=== PATIENT | male | born 1945 | race Caucasian/White ===

== ENCOUNTER → 2016-04-29 | Outpatient (CLI) | payer MEDICARE ==
[~2016-04-29] MED LIST: /FENT50PA TD; /PANT40TA OR; /WARF25TA OR; /WARF25TA PO; /WARF5TA OR; ASPI81TA83 OR; BIMATOPROST OU; COLA100C2 OR; CoQ-10 PO; EFFE150C OR; FISH1000 OR; GABA600T3 OR; GLUC1000 OR; LISI40TA OR; MAGNESIUM OXIDE PO; MULTIVIT OR; NEUR400C PO; NIAS10003 PO; NORV5TAB OR; OMEGA 3 PO; SIMV20TA2 OR; TOPR50TA OR; TRIC145T19 OR; VICO5TAB OR; VIT D 2000 PO
[2016-04-29 12:47] LABS: INR 3.69
== END ==
LOC: M LAB 11:36
PROVIDERS: ATTEND Internal Medicine
DX: Z79.01 Long term (current) use of anticoagulants (principal)

== ENCOUNTER 2016-11-19 18:05 | Inpatient (IN) | payer OTHER, MEDICARE ==
[~2016-11-19] VITALS: Ht 182.9 cm; Wt 118.2 kg
[2016-11-19] MEDS ORDERED: PLAV1TAB2 PO (18:25)
[2016-11-19] MEDS ORDERED: COUM1TAB17 PO (18:25)
[2016-11-19] MEDS ORDERED: COUM2.5T17 PO (18:25)
[2016-11-19] MEDS ORDERED: NIAC1TAB5 PO (19:00)
[2016-11-19] MEDS ORDERED: ATOR1TAB21 PO (19:00)
[2016-11-19] MEDS ORDERED: GABA-282 PO (19:00)
[2016-11-19] MEDS ORDERED: GABA600T PO (19:00)
[2016-11-19] MEDS ORDERED: FENT50PA TD (19:00)
[2016-11-19 19:14] LABS: BASO % 0.2 % (0.0-1.0); EOS % 0.2 % (0.0-3.0); LARGE UNSTAINED CELL # 0.1 K/mm3 (0.0-0.4); LARGE UNSTAINED CELL % 0.5 % (0.0-4.0); LYMPH # 1.1 K/mm3 (1.5-4.5); MEAN CORPUSCULAR HEMOGLOBIN 31.6 pg (27.0-33.0); MEAN CORPUSCULAR VOLUME 95.9 fl (80.0-96.0); MONO # 0.5 K/mm3 (0.0-0.8); NEUTROPHILS # 8.7 K/mm3 (1.8-7.7); NEUTROPHILS % 84.1 % (36.0-66.0); PLATELET COUNT, AUTOMATED 395 k/mm3 (150-450); RED CELL DISTRIBUTION WIDTH 14.3 % (11.5-14.5); WHITE BLOOD COUNT 10.4 K/mm3 (4.0-10.0)
[2016-11-19] MEDS ORDERED: SODIUM CHLORIDE 0.9% 1000 ML IV ONE (19:15)
[2016-11-19 19:23] LABS: INR 4.99
[2016-11-19 19:39] LABS: ALBUMIN 3.6 GM/DL (3.2-5.2); ALBUMIN/GLOBULIN RATIO 1.03 (1.00-1.93); ALKALINE PHOSPHATASE 57 U/L (45-117); ALT/SGPT 31 U/L (12-78); ANION GAP 13 MEQ/L (8-16); AST/SGOT 21 U/L (15-37); BILIRUBIN,DIRECT 0.1 MG/DL (0.0-0.2); BILIRUBIN,TOTAL 0.4 MG/DL (0.2-1.0); BLOOD UREA NITROGEN 64 MG/DL (7-18); CARBON DIOXIDE LEVEL 21 MEQ/L (21-32); CHLORIDE LEVEL 100 MEQ/L (98-107); CREATININE FOR GFR 3.24 MG/DL (0.70-1.30); GLOMERULAR FILTRATION RATE 20.3 (>49); GLUCOSE, FASTING 161 MG/DL (80-110); MAGNESIUM LEVEL 2.4 MG/DL (1.8-2.4); SODIUM LEVEL 134 MEQ/L (136-145); T UPTAKE 41 % (33-40); TOTAL PROTEIN 7.1 GM/DL (6.4-8.2)
--- NOTE | 2016-11-19 19:40 | REPUSA ---
CLINICAL HISTORY: Syncope TECHNIQUE: Multiple axial CT images were obtained through the brain without IV contrast material. COMMENTS: There is normal configuration of sella turcica. There are no intra or extra-axial collections. There is no mass effect or midline shift. There is no evidence of hematoma formation. No hydrocephalus is p resent. The ventricles are symmetrical. No abnormal calcifications are present. There is diffuse age-appropriate cerebellar and cerebral atrophy with proportionally dilated ventricl es and cortical sulci. There are bilateral periventricular and subcortical white matter hypolucencies compatible with mild c hronic microvascular disease. Otherwise, no significant focal abnormalities are seen either in the posterior fossa or supratentoria l compartment. IMPRESSION: 1. Age-appropriate cerebellar and cerebral atrophy. 2. Mild chronic microvascular disease. 3. No evidence of acute intracranial pathology. Thank you for your kind referral of this patient.
[2016-11-19 19:44] LABS: FREE T4 1.15 NG/DL (0.76-1.46); THYROXINE (T4) 6.5 UG/DL (4.5-12.0)
[2016-11-19 19:45] LABS: POTASSIUM SERUM 5.6 MEQ/L (3.5-5.1)
[2016-11-19] MEDS: HYDROmorphone HCL 1 MG/ML SYRINGE (J1170) IV PRN ×2 (20:32→23:54)
[2016-11-19] MEDS ORDERED: HYDR12.55 PO (21:17)
[2016-11-19] MEDS ORDERED: JANU100T PO (21:17)
[2016-11-19] MEDS ORDERED: METO1TAB7 PO (21:17)
[2016-11-19] MEDS ORDERED: VENL150C43 PO (21:17)
[2016-11-19] MEDS ORDERED: VITA100054 PO (21:17)
[2016-11-19] MEDS ORDERED: HYDR25TA PO (21:17)
[2016-11-19] MEDS ORDERED: BIMA01SOL OU (21:17)
[2016-11-19] MEDS ORDERED: BACL10TA2 PO (21:17)
[2016-11-19] MEDS ORDERED: COMB0.2S OS (21:17)
[2016-11-19] MEDS ORDERED: VITMTA PO (21:17)
[2016-11-19] MEDS ORDERED: NORC10TA21 PO (21:17)
[2016-11-19] MEDS ORDERED: FENO145T PO (21:17)
[2016-11-19] MEDS ORDERED: FAMO40TA3 PO (21:17)
[2016-11-19] MEDS ORDERED: ASPI81TA85 PO (21:17)
[2016-11-19] MEDS ORDERED: PRED10TA2 PO (21:17)
[2016-11-19] MEDS ORDERED: FISH7.5C PO (21:17)
[2016-11-19] MEDS ORDERED: MAGN400T5 PO (21:18)
[2016-11-19] MEDS ORDERED: ACETAMINOPHEN TAB 650MG DOSE (2X325MG) PO PRN (21:30)
[2016-11-19] MEDS ORDERED: GLUCAGON FOR INJ 1 MG VIAL (J1610) SC PRN (21:30)
[2016-11-19] MEDS ORDERED: GLUCOSE 4 GM CHEW TABLET PO PRN (21:30)
[2016-11-19] MEDS ORDERED: DEXTROSE 50% 50 ML SYRINGE IV PRN (21:30)
[2016-11-19] MEDS ORDERED: zolPIDEM TARTRATE 5 MG TAB PO PRN (21:30)
--- NOTE | 2016-11-19 22:14 | CR.PDOC ---
[facility] Consultation Consultation DATE OF CONSULTATION: Nov 19, 2016 at 18:05 REFERRING PROVIDER: [facility] hospitalist ATTENDING PHYSICIAN: Dr. Ector Castorena REASON FOR CONSULTATION/CHIEF COMPLAINT: Left ankle fracture. HISTORY OF PRESENT ILLNESS: Patient is a 71 y/o male with a history of peripheral vascular disease with complicated vascular surgical history who sustained a syncopal fall yesterday resulting in left ankle pain and swelling that did not resolve and was unable to bear weight and presented to the [facility] ER for further evaluation. Patient states he felt "lightheaded" prior to the fall. He denied antecedent chest pain, shortness of breath, headaches, nausea. Patient is a community ambulator at baseline who normally experiences approximately one block claudication in bilateral lower extremities. ALLERGIES: Please see below. HOME MEDICATIONS: Please see below. PAST MEDICAL HISTORY: 1. PVD. 2. Diabetes. 3. Hypertension 4. Neuropathy 5. Chronic pain PAST SURGICAL HISTORY: 1. Bilateral fem-fem bypass 2. aorto-bifem bypass 3. cardiac stenting 4. renal stenting 5. cholecystectomy 6. appendectomy FAMILY HISTORY: Parents . No history of vascular disease or clotting disorders SOCIAL HISTORY: Former smoker quit 15 years ago. lives with . Drinks socially. REVIEW OF SYSTEMS: CONSTITUTIONAL: No fevers, chills, or night sweats. CARDIOVASCULAR: + history of PVD with multiple failed stenting procedures. + syncopal episode per HPI RESPIRATORY: No cough, wheeze, or shortness of breath. MUSCULOSKELETAL: + ankle pain per HPI. GASTROINTESTINAL: no nausea, vomiting, diarrhea. PHYSICAL EXAMINATION: VITAL SIGNS: Please see below. GENERAL APPEARANCE: well nourished male, in no acute distress. HEENT: normocephalic, atraumatic. RESPIRATORY: non labored breathing. CARDIOVASCULAR: 1+ DP, PT pulse, 3-4 second capillary refill LLE. Symmetric to contralateral extremity. EXTREMITIES: Focused exam of the left ankle demonstrates diffuse soft tissue swelling, ecchymosis, and visible deformity to the left ankle. Tenderness to the lateral aspect of the ankle. Able to flex/extend toes. NEUROLOGICAL: Sensation intact to light touch in all LLE distributions. LABORATORY DATA: Please see below. Plain radiographs of the left ankle demonstrate an unstable left ankle fracture with long spiral distal fibular fracture with medial clear space widening ASSESSMENT: 71 y/o male with significant medical comorbdities with supratherapeutic INR with an unstable left ankle fracture PLAN: 1. I had a long discussion with the patient regarding the nature of his injury. Typically, these are treated with open reduction and internal fixation, however , given his supratherapeutic INR and past medical and surgical history, we will await medical optimization by hospitalist service and evaluation by anesthesia to determine when it is safe to proceed. Patient was counseled on the senior care sequelae of non operative management of unstable ankle fractures, and the fast that PTOA can take approximately 20 years to develop, and given his minimal baseline ambulation, he may be amenable to cast treatment with 6-12 weeks of non weight bearing. 2. Patient was placed into a well padded L&U splint in the meantime, post splint xrays ordered 3. NPO after midnight in event patient is optimized/cleared by tomorrow. 4. Will reevaluate patient in am Vital Signs/I&O Vital Signs Date Time Temp Pulse Resp B/P (MAP) Pulse Ox O2 Delivery O2 Flow Rate FiO2 11/19/16 20:32 20 11/19/16 19:53 71 125/56 (79) 72 114/54 (74) 11/19/16 19:35 93 11/19/16 18:12 96.6 Room Air Laboratory Data Labs 24H Laboratory Tests 2 11/19/16 18:51: White Blood Count 10.4H, Red Blood Count 4.36, Hemoglobin 13.8L, Hematocrit 41.8L, Mean Corpuscular Volume 95.9, Mean Corpuscular Hemoglobin 31.6, Mean Corpuscular Hemoglobin Concent 33.0, Red Cell Distribution Width 14.3, Platelet Count 395, Neutrophils (%) (Auto) 84.1H, Lymphocytes (%) (Auto) 10.0L, Monocytes (%) (Auto) 5.0, Eosinophils (%) (Auto) 0.2, Basophils (%) (Auto) 0.2, Neutrophils # (Auto) 8.7H, Lymphocytes # (Auto) 1.1L, Monocytes # (Auto) 0.5, Eosinophils # (Auto) 0.0, Basophils # (Auto) 0.0, Large Unclassified Cells % 0.5 , Large Unclassified Cells # 0.1, Prothrombin Time 49.1H, Prothromb Time International Ratio 4.99, Activated Partial Thromboplast Time 50.2H, Anion Gap 13, Glomerular Filtration Rate 20.3L, Estimated Mean Plasma Glucose 171H, Hemoglobin A1c 7.6H, Calcium Level 9.0, Magnesium Level 2.4, Aspartate Amino Transf (AST/SGOT) 21, Alanine Aminotransferase (ALT/SGPT) 31, Alkaline Phosphatase 57, Total Bilirubin 0.4, Direct Bilirubin 0.1, Total Creatine Kinase 97, Creatine Kinase MB 1.8, Creatine Kinase MB Relative Index 1.85, Troponin I < 0.02, Total Protein 7.1, Albumin 3.6, Albumin/Globulin Ratio 1.03, Thyroid Stimulating Hormone (TSH) 0.447, Free Thyroxine 1.15, Free Thyroxine Index 2.7, Thyroxine (T4) 6.5, Triiodothyronine (T3) Uptake 41H 11/19/16 19:02: Lactic Acid Level 3.4*H, Ammonia 25 11/19/16 19:48: Bedside Glucose (Misc Panel) 134H CBC/BMP Laboratory Tests 11/19/16 18:51 Red Blood Count 4.36, Mean Corpuscular Volume 95.9, Mean Corpuscular Hemoglobin 31.6, Mean Corpuscular Hemoglobin Concent 33.0, Red Cell Distribution Width 14.3 , Neutrophils (%) (Auto) 84.1 H, Lymphocytes (%) (Auto) 10.0 L, Monocytes (%) ( Auto) 5.0, Eosinophils (%) (Auto) 0.2, Basophils (%) (Auto) 0.2, Neutrophils # ( Auto) 8.7 H, Lymphocytes # (Auto) 1.1 L, Monocytes # (Auto) 0.5, Eosinophils # ( Auto) 0.0, Basophils # (Auto) 0.0 Allergies Coded Allergies: No Known Allergies (Verified , 07/02/04) Home Medications Scheduled (Fish Oil 1000 mg) 1 Cap Cap, 3 CAP PO BID, (Reported) (Combigan 0.2-0.5 %) 1 Cheryl Cheryl, 1 DROP OS BID, (Reported) Atorvastatin Calcium (Atorvastatin Calcium) 20 Mg Tab, 20 MG PO QHS, (Reported) Baclofen (Baclofen) 10 Mg Tab, 10 MG PO BID, (Reported) Bimatoprost (Lumigan) 50 Drop/2.5 Ml Cheryl, 1 DROP OU QHS, (Reported) Clopidogrel Bisulfate (Plavix) 75 Mg Tab, 75 MG PO QHS, (Reported) Famotidine (Famotidine) 40 Mg Tab, 40 MG PO DAILY, (Reported) Fenofibrate (Fenofibrate) 145 Mg Tab, 145 MG PO QHS, (Reported) Fentanyl (Fentanyl) 50 Mcg Tdsy, 50 MCG TD Q3DP, (Reported) Gabapentin (Gabapentin) 600 Mg Tab, 1,800 MG PO BID, (Reported) Hydralazine HCl (Hydralazine HCl) 25 Mg Tab, 25 MG PO TID, (Reported) Magnesium Oxide (Magnesium Oxide 400) 400 Mg Tab, 400 MG PO BID, (Reported) Metoprolol Succinate (Metoprolol Succinate ER) 50 Mg Tab, 75 MG PO DAILY, ( Reported) Niacin (Niacin ER) 1,000 Mg Tab, 2,000 MG PO QHS, (Reported) Prednisone (Prednisone) 10 Mg Tab, 10 MG PO TAPER, (Reported) 2 tabs daily x2d, then 1 tab daily x2d then stop TO END 11/23/16 Sitagliptin Phosphate (Januvia) 100 Mg Tab, 100 MG PO DAILY, (Reported) Venlafaxine Hydrochloride (Venlafaxine HCl ER) 150 Mg Cap, 150 MG PO QAM, ( Reported) Vitamin D (Vitamin D High Potency) 1,000 Unit Cap, 1,000 UNIT PO DAILY, ( Reported) Warfarin Sod (Coumadin) 5 Mg Tab, 5 MG PO 5XW, (Reported) MON, WED, THURS, SAT, SUN Warfarin Sod (Coumadin) 2.5 Mg Tab, 2.5 MG PO 2XW, (Reported) TUESDAYS AND FRIDAYS Scheduled PRN Acetaminophen/Hydrocodone ([place] 10-325 mg) 1 Tab Tab, 1 TAB PO QID PRN for PAIN , (Reported) ABDULKADIR CASTORENA MD Nov 19, 2016 22:14
--- NOTE | 2016-11-19 22:35 | HPE ---
DATE OF ADMISSION: 11/19/2016 PRIMARY CARE PROVIDER: Dr. John Batista. VASCULAR SURGEON: Dr. John in [place]. SENIOR APPLICATION PROGRAMMER: Dr. Goodwin. ATTENDING PHYSICIAN: Dr. Arana. ORTHOPEDICS: Dr. Saavedra. CHIEF COMPLAINT: Syncope and fall. HISTORY OF PRESENT ILLNESS: The patient is a 71-year-old white male with multiple chronic medical conditions listed below, came to the emergency room (ER) for evaluation of syncope, fall and left ankle pain. History is provided by himself, as well as his who is with him in the ER. The patient is a poor historian. Per the patient, he has very severe peripheral vascular disease and he underwent several times abdominal aortic aneurysm (triple A) repair, as well as bilateral lower extremity bypass surgery with Dr. John. He is on aspirin, Plavix and Coumadin for severe vascular disease. He states in the last few days, he passed out several times, but no details available. Yesterday, he states he passed out and fell again and injured his left ankle, but did not come to the hospital for further evaluation. Today, he was found in the bathroom and not able to stand up, so the called the ambulance and brought him to the hospital for further evaluation. In the ER, he had x-ray done which demonstrated he has a left ankle fracture. Orthopedics was called for consultation. Meanwhile, medicine service was called for the admission. REVIEW OF SYSTEMS: Denies fever. No chills, no headache, no blurred vision. Possible syncope episode. Denies chest pain. No abdominal pain. No diarrhea. No tingling, numbness or weakness in arms or lower extremities. All other systems reviewed and were negative. PAST MEDICAL HISTORY: 1. Hypertension. 2. Peripheral vascular disease. 3. Type 2 diabetes. 4. Dyslipidemia. 5. Triple A. 6. Chronic low back, shoulder, and lower extremity pain. 7. Chronic kidney disease (CKD) stage III. PAST SURGICAL HISTORY: 1. Bilateral lower extremity bypass surgery. 2. Triple A repair. 3. Appendectomy. 4. Cholecystectomy. 5. Multiple surgeries for bowel obstruction. ALLERGIES: No known drug allergies. FAMILY HISTORY: Both parents . No family history of coronary artery disease or peripheral vascular disease. SOCIAL HISTORY: He is an ex-smoker, quit many years. No alcohol abuse. No illicit drug abuse. He is living with at home. He is a FULL CODE. MEDICATIONS: - aspirin 81 mg by mouth daily - Vicodin as needed - lisinopril 40 mg by mouth daily - metformin 1000 mg daily - multivitamin one tablet by mouth daily - metoprolol 50 mg by mouth daily - Tricor 145 mg by mouth daily - Effexor 150 mg by mouth daily - Protonix 40 mg by mouth daily - Coumadin 5 mg five times a week and 2 mg two days a week - Plavix 75 mg by mouth daily - Neurontin 300 mg by mouth daily - atorvastatin 20 mg by mouth daily - niacin 1000 mg by mouth daily - fentanyl 15 patch PHYSICAL EXAMINATION: VITAL SIGNS: Temperature is 96.6, pulse is 84, respirations 18, blood pressure 113/68, oxygen saturation 92% on room air. GENERAL: Is awake, alert, and oriented times three. He is not in acute distress. HEENT: Atraumatic. Pupils equal, round, react to light. No jaundice. Ears, nose, throat normal. Mouth mucus a little bit dry. NECK: No jugular venous distention (JVD). No bruits. LUNGS: Clear. No wheezing, no crackles. HEART: S1, S2. Regular. No murmur. ABDOMEN: Soft, bowel sounds positive. Nontender. He had a big healed abdominal wall surgical scar. LOWER EXTREMITIES: No edema in bilateral lower extremities. His left ankle is wrapped by orthopedics. SKIN: No rash. NEUROLOGIC: Nonfocal. PSYCHOLOGIC: No acute psychosis. DIAGNOSTIC LABORATORIES: CBC and differential showed WBC 10.4, hemoglobin 13.8, and hematocrit 41.8, platelets 395. Sodium 134, potassium 5.6, chloride 100, bicarbonate 21, BUN 64, creatinine 3.24 and his baseline is 1.7. INR was 4.99. IMPRESSION: 1. Possible syncopal episode. 2. Left ankle fracture due to fall. 3. Acute renal failure on chronic kidney disease (CKD) stage III. 4. Hyperkalemia which is mild. 5. Supratherapeutic INR due to Coumadin. 6. Type 2 diabetes. 7. Hypertension. 8. Severe peripheral vascular disease. 9. Chronic pain. PLAN: The patient will be admitted to the progressive care unit (PCU) for close monitoring. Regarding syncopal episode, he is not a good historian, and we will continue cardiac monitoring to rule out any arrhythmia. Meanwhile, we will schedule Doppler for carotid arteries to rule out any carotid artery stenosis. We are going to hold his Coumadin because his INR is supratherapeutic at 4.99. Also we are going to hold is metformin due to acute renal failure, and we will treat him with gentle intravenous (IV) hydration and followup creatinine tomorrow. Regarding left ankle fracture, he was consulted with orthopedics and we are going to hold aspirin and Plavix for possible surgical treatment. Regarding his diabetes, I will start him on subcutaneous insulin coverage. Otherwise, we will continue his other medications except aspirin and Plavix. Lisinopril and metformin. Coumadin, which is on hold.
--- NOTE | 2016-11-19 23:00 | REPUSA ---
Clinical history: Renal failure. Findings: The urinary bladder is distended. Echogenic debris is seen within the urinary bladder. No u rinary bladder masses are seen. The prostate is enlarged, measuring 5.4 x 4.7 x 5.1 cm. The right kid cyrus measures 11.3 x 4.6 x 6.5 cm. The left kidney measures 11.4 x 4.6 x 6.9 cm. The kidneys demonstra te normal echotexture and echogenicity. There is no evidence of hydronephrosis or nephrolithiasis. No renal masses are seen. No free fluid is appreciated. Impression: 1. Unremarkable ultrasound examination of the kidneys. 2. Minimal echogenic debris within the distended urinary bladder. 3. Enlarged prostate gland.
[2016-11-19 23:05] VITALS: BP 158/71
[2016-11-19] MEDS: HumaLOG INSULIN (NovoLOG) PER UNIT SC SCH (23:52)
[2016-11-19] MEDS: NS 1,000 ML IV SCH (23:53)
[2016-11-19] MEDS: SENOKOT S TAB PO SCH (23:54)
[2016-11-20 04:00] VITALS: BP 141/61
[2016-11-20] MEDS: PERCOCET 5MG/325MG TAB PO PRN ×3 (04:29→21:09)
[2016-11-20 05:37] LABS: MEAN CORPUSCULAR HEMOGLOBIN 31.4 pg (27.0-33.0); MEAN CORPUSCULAR HGB CONC 32.7 g/dl (32.0-36.5); MEAN CORPUSCULAR VOLUME 96.2 fl (80.0-96.0); RED CELL DISTRIBUTION WIDTH 14.2 % (11.5-14.5); WHITE BLOOD COUNT 8.7 K/mm3 (4.0-10.0)
[2016-11-20 05:46] LABS: CALCIUM LEVEL 8.7 MG/DL (8.8-10.2); CREATININE FOR GFR 1.98 MG/DL (0.70-1.30); GLOMERULAR FILTRATION RATE 35.9 (>49); POTASSIUM SERUM 4.7 MEQ/L (3.5-5.1)
[2016-11-20 06:02] LABS: INR 5.73
--- NOTE | 2016-11-20 06:33 | ECGEPIP ---
Stationary ECG Study [facility] - ED Test Date: 2016-11-19 Pat Name: LUZ ELENA REID Department: Room: [place] [address] Gender: M Firewall Engineer: JORJE : 1945 Requested By: WARD MAR Order Number: [id number] Reading MD: Zachary Pulido Measurements Intervals Odd Rate: 82 P: 39 WA: 171 QRS: 64 QRSD: 104 T: 56 QT: 355 QTc: 417 Interpretive Statements SINUS RHYTHM WITH MARKED SINUS ARRHYTHMIA INCOMPLETE RIGHT BUNDLE BRANCH BLOCK SIMILAR TO 08/21/15 Electronically Signed On 11-20-2016 6:33:20 EDT by Zachary Pulido
[2016-11-20] MEDS: HumaLOG INSULIN (NovoLOG) PER UNIT SC SCH ×4 (06:39→21:00)
[2016-11-20] MEDS: MORPHINE 2 MG/ML 1ML SYRINGE IV PRN ×6 (07:41→21:09)
[2016-11-20 08:00] VITALS: BP 160/69
[2016-11-20] MEDS ORDERED: PHYTONADIONE 2.5 MG **1/2 TAB PO ONE (08:00)
--- NOTE | 2016-11-20 08:32 | REP ---
REASON: Pain after trauma. COMPARISON: None. There is a spiral distal fibular fracture with abnormal widening of the medial mortise. IMPRESSION: Distal fibular fracture with lateral tibiotalar subluxation as describe above. Signed by Fidel Thompson DO 11/20/2016 09:22 A
--- NOTE | 2016-11-20 08:34 | REP ---
REASON: Pain after trauma. Only single AP supine view of the chest was obtained and compared to the frontal view of the chest of 12/06/2011, which is the latest prior. There has been no significant change. There are mild chronic changes status quo. The cardiomediastinal silhouette is stable. There is no significant change in the appearance of the osseous structures. IMPRESSION: Stable chest. Signed by Fidel Thompson DO 11/20/2016 09:22 A
--- NOTE | 2016-11-20 08:41 | IPNPDOC ---
Date Seen The patient was seen on 11/20/16. Progress Note Orthopedic surgery progress note SUBJECTIVE: Patient is a 71 y/o male with an unstable left ankle fracture sustained 2 days ago. Splinted in ER yesterday. No acute events overnight. Objective: L ankle in splint, C/D/I. Able to flex/xtend all toes. Sensation intact in all LLE distributions. LABORATORY DATA: INR this morning 5.74 IMAGING: Post splint xrays pending ASSESSMENT: This is a 71 y/o male with multiple medical comorbidities with an unstable left ankle fracture and supratherapeutic INR PLAN: 1. Patient counseled that his INR is too high for elective ankle ORIF. Continue syncopal workup per hospitalist service 2. May eat today from orthopedic surgery standpoint 3. May consider surgery if INR less than 3 and cleared by anesthesia service. Counseled patient that non-operative treatment in a cast may also be an option if risks outweigh benefits 4. Patient expressed understanding and agreed with the plan. All questions were answered VS, I&O, 24H, Marv Vital Signs/I&O Vital Signs Date Time Temp Pulse Resp B/P (MAP) Pulse Ox O2 Delivery O2 Flow Rate FiO2 11/20/16 07:41 18 11/20/16 04:00 98.0 65 141/61 (87) 96 Room Air I&O- Last 24 Hours up to 6 AM 11/20/16 05:59 Intake Total 400 ml Output Total 775 ml Balance -375 ml Laboratory Data 24H LABS Laboratory Tests 2 11/19/16 18:51: White Blood Count 10.4H, Red Blood Count 4.36, Hemoglobin 13.8L, Hematocrit 41.8L, Mean Corpuscular Volume 95.9, Mean Corpuscular Hemoglobin 31.6, Mean Corpuscular Hemoglobin Concent 33.0, Red Cell Distribution Width 14.3, Platelet Count 395, Neutrophils (%) (Auto) 84.1H, Lymphocytes (%) (Auto) 10.0L, Monocytes (%) (Auto) 5.0, Eosinophils (%) (Auto) 0.2, Basophils (%) (Auto) 0.2, Neutrophils # (Auto) 8.7H, Lymphocytes # (Auto) 1.1L, Monocytes # (Auto) 0.5, Eosinophils # (Auto) 0.0, Basophils # (Auto) 0.0, Large Unclassified Cells % 0.5 , Large Unclassified Cells # 0.1, Prothrombin Time 49.1H, Prothromb Time International Ratio 4.99, Activated Partial Thromboplast Time 50.2H, Anion Gap 13, Glomerular Filtration Rate 20.3L, Estimated Mean Plasma Glucose 171H, Hemoglobin A1c 7.6H, Calcium Level 9.0, Magnesium Level 2.4, Aspartate Amino Transf (AST/SGOT) 21, Alanine Aminotransferase (ALT/SGPT) 31, Alkaline Phosphatase 57, Total Bilirubin 0.4, Direct Bilirubin 0.1, Total Creatine Kinase 97, Creatine Kinase MB 1.8, Creatine Kinase MB Relative Index 1.85, Troponin I < 0.02, Total Protein 7.1, Albumin 3.6, Albumin/Globulin Ratio 1.03, Thyroid Stimulating Hormone (TSH) 0.447, Free Thyroxine 1.15, Free Thyroxine Index 2.7, Thyroxine (T4) 6.5, Triiodothyronine (T3) Uptake 41H 11/19/16 19:02: Lactic Acid Level 3.4*H, Ammonia 25 11/19/16 19:48: Bedside Glucose (Misc Panel) 134H 11/19/16 23:35: Bedside Glucose (Misc Panel) 121H 11/19/16 23:36: Lactic Acid Followup at 4 Hours 1.3 11/20/16 04:58: Prothrombin Time 55.0H, Prothromb Time International Ratio 5.73*H, Anion Gap 12 , Glomerular Filtration Rate 35.9L, Blood Urea Nitrogen 53H, Creatinine 1.98H, Sodium Level 139, Potassium Level 4.7, Chloride Level 105, Carbon Dioxide Level 22, Calcium Level 8.7L CBC/BMP Laboratory Tests 11/19/16 18:51 Red Blood Count 4.36, Mean Corpuscular Volume 95.9, Mean Corpuscular Hemoglobin 31.6, Mean Corpuscular Hemoglobin Concent 33.0, Red Cell Distribution Width 14.3 , Neutrophils (%) (Auto) 84.1 H, Lymphocytes (%) (Auto) 10.0 L, Monocytes (%) ( Auto) 5.0, Eosinophils (%) (Auto) 0.2, Basophils (%) (Auto) 0.2, Neutrophils # ( Auto) 8.7 H, Lymphocytes # (Auto) 1.1 L, Monocytes # (Auto) 0.5, Eosinophils # ( Auto) 0.0, Basophils # (Auto) 0.0 11/20/16 04:58 Calcium Level 8.7 L 11/20/16 04:59 Red Blood Count 3.93 L, Mean Corpuscular Volume 96.2 H, Mean Corpuscular Hemoglobin 31.4, Mean Corpuscular Hemoglobin Concent 32.7, Red Cell Distribution Width 14.2 ABDULKADIR CASTORENA MD Nov 20, 2016 08:41
[2016-11-20] MEDS: PANTOPRAZOLE 40MG TAB (PROTONIX) PO SCH (09:23)
[2016-11-20] MEDS: SENOKOT S TAB PO SCH ×2 (09:23→21:06)
[2016-11-20] MEDS: NS 1,000 ML IV SCH (09:31)
--- NOTE | 2016-11-20 10:30 | IPNPDOC ---
Subjective Date Seen The patient was seen on 11/20/16. Subjective Chief Complaint/HPI The patient is a 71-year-old male admitted with a reason for visit of Closed Left Ankle Fracture. General: Denies: ROS Unobtainable, Chills, Night Sweats, Fatigue, Malaise, Normal Appetite, Other Symptoms Constitutional: Denies: Chills, Fever, Malaise, Night Sweats, Weakness, Fatigue , Weight Loss, Lethargy, Other Eyes: Denies: Pain, Vision change, Conjunctivae inflammation, Eyelid inflammation, Redness, Other ENT: Denies: Head Aches, Ear Pain, Dysphagia, Sinus Congestion, Post Nasal Drip , Sore Throat, Epistaxis, Other Symptoms Skin: Denies: Rash, Lesions, Jaundice, Bruising, Itching, Dry, Breakdown, Nail Changes, Other Pulmonary: Denies: Dyspnea, Cough, Pleuritic Chest Pain, Other Symptoms Cardiovascular: Denies: Chest Pain, Palpitations, Orthopnea, Paroxysmal Noc. Dyspnea, Edema, Lt Headedness, Other Symptoms Gastrointestinal: Denies: Nausea, Vomiting, Abdominal Pain, Diarrhea, Constipation, Melena, Hematochezia, Other Symptoms Musculoskeletal: Reports: Foot Pain Objective Physical Examination General Exam: Positive: Alert, Cooperative, No Acute Distress Eye Exam: Positive: Conjunctiva & lids normal, EOMI Chest Exam: Positive: Clear to auscultation, Normal air movement Heart Exam: Positive: Rate Normal, Regular Rhythm, Negative: Murmurs Telemetry: Positive: No significant arrhythmia Abdomen Exam: Positive: Normal bowel sounds, Soft, Negative: Tenderness Psych Exam: Positive: Oriented x 3 Assessment /Plan Problems (1) Syncope Status: Acute Discussed With: Patient Problem Specific Plan: Monitor Clinically, Repeat Tests Problem Text: no clear etiology continue telemetry monitoring 2d echo pending (2) Closed left ankle fracture Status: Acute Discussed With: Patient Problem Specific Plan: Consult Specialist Problem Text: follow as per ortho plavix on hold for possible surgery inr supratherapeutic - received vitamin k 2.5mg x 1 (3) PVD (peripheral vascular disease) Status: Chronic Discussed With: Patient Problem Text: s/p multiple surgical repair asa/plavix/coumadin as home regimen coumadin/plavix on hold for possible surgery and elevated INR (4) HTN (hypertension) Status: Chronic Problem Specific Plan: Monitor Clinically Problem Text: hydralazine, metoprolol with hold parameters (5) Diabetes Status: Chronic Problem Text: modified diet, insulin sliding scale (6) Dyslipidemia Status: Chronic Problem Text: continue lipitor, tircor, niaspan (7) Abdominal aortic aneurysm Status: Chronic Problem Text: s/p surgical repair (8) CKD (chronic kidney disease) Status: Chronic (9) Chronic pain Status: Chronic Discussed With: Patient Problem Text: chronic back, shoulder pain, lower extremity. continue with home regimen - fentanyl patch, gabapentin (10) Anxiety and depression Status: Chronic Problem Text: effexor Plan/VTE VTE Prophylaxis Ordered?: Yes (supratherapeutic on warfarin) Plan IVF: Discontinue Diet: Advance Activity: Continue Current (as per ortho) Diagnostics: Repeat Labs in AM Anticipated Discharge: Home With Services VS, I&O, 24H, Marv Vital Signs/I&O Vital Signs Date Time Temp Pulse Resp B/P (MAP) Pulse Ox O2 Delivery O2 Flow Rate FiO2 11/20/16 09:31 18 11/20/16 08:00 98.0 73 160/69 (99) 94 Room Air I&O- Last 24 Hours up to 6 AM 11/20/16 06:00 Intake Total 600 ml Output Total 775 ml Balance -175 ml Laboratory Data 24H LABS Laboratory Tests 2 11/19/16 18:51: White Blood Count 10.4H, Red Blood Count 4.36, Hemoglobin 13.8L, Hematocrit 41.8L, Mean Corpuscular Volume 95.9, Mean Corpuscular Hemoglobin 31.6, Mean Corpuscular Hemoglobin Concent 33.0, Red Cell Distribution Width 14.3, Platelet Count 395, Neutrophils (%) (Auto) 84.1H, Lymphocytes (%) (Auto) 10.0L, Monocytes (%) (Auto) 5.0, Eosinophils (%) (Auto) 0.2, Basophils (%) (Auto) 0.2, Neutrophils # (Auto) 8.7H, Lymphocytes # (Auto) 1.1L, Monocytes # (Auto) 0.5, Eosinophils # (Auto) 0.0, Basophils # (Auto) 0.0, Large Unclassified Cells % 0.5 , Large Unclassified Cells # 0.1, Prothrombin Time 49.1H, Prothromb Time International Ratio 4.99, Activated Partial Thromboplast Time 50.2H, Anion Gap 13, Glomerular Filtration Rate 20.3L, Estimated Mean Plasma Glucose 171H, Hemoglobin A1c 7.6H, Calcium Level 9.0, Magnesium Level 2.4, Aspartate Amino Transf (AST/SGOT) 21, Alanine Aminotransferase (ALT/SGPT) 31, Alkaline Phosphatase 57, Total Bilirubin 0.4, Direct Bilirubin 0.1, Total Creatine Kinase 97, Creatine Kinase MB 1.8, Creatine Kinase MB Relative Index 1.85, Troponin I < 0.02, Total Protein 7.1, Albumin 3.6, Albumin/Globulin Ratio 1.03, Thyroid Stimulating Hormone (TSH) 0.447, Free Thyroxine 1.15, Free Thyroxine Index 2.7, Thyroxine (T4) 6.5, Triiodothyronine (T3) Uptake 41H 11/19/16 19:02: Lactic Acid Level 3.4*H, Ammonia 25 11/19/16 19:48: Bedside Glucose (Misc Panel) 134H 11/19/16 23:35: Bedside Glucose (Misc Panel) 121H 11/19/16 23:36: Lactic Acid Followup at 4 Hours 1.3 11/20/16 04:58: Prothrombin Time 55.0H, Prothromb Time International Ratio 5.73*H, Anion Gap 12 , Glomerular Filtration Rate 35.9L, Blood Urea Nitrogen 53H, Creatinine 1.98H, Sodium Level 139, Potassium Level 4.7, Chloride Level 105, Carbon Dioxide Level 22, Calcium Level 8.7L CBC/BMP Laboratory Tests 11/19/16 18:51 Red Blood Count 4.36, Mean Corpuscular Volume 95.9, Mean Corpuscular Hemoglobin 31.6, Mean Corpuscular Hemoglobin Concent 33.0, Red Cell Distribution Width 14.3 , Neutrophils (%) (Auto) 84.1 H, Lymphocytes (%) (Auto) 10.0 L, Monocytes (%) ( Auto) 5.0, Eosinophils (%) (Auto) 0.2, Basophils (%) (Auto) 0.2, Neutrophils # ( Auto) 8.7 H, Lymphocytes # (Auto) 1.1 L, Monocytes # (Auto) 0.5, Eosinophils # ( Auto) 0.0, Basophils # (Auto) 0.0 11/20/16 04:58 Calcium Level 8.7 L 11/20/16 04:59 Red Blood Count 3.93 L, Mean Corpuscular Volume 96.2 H, Mean Corpuscular Hemoglobin 31.4, Mean Corpuscular Hemoglobin Concent 32.7, Red Cell Distribution Width 14.2 Microbiology Microbiology 11/20/16 Urine Culture, Received Pending BRIDGER CASON MD Nov 20, 2016 10:30
[2016-11-20] MEDS ORDERED: FENTANYL REMOVAL DOCUMENTATION MISC XX SCH (10:45)
--- NOTE | 2016-11-20 11:00 | REP ---
REASON: Status post reduction. Abnormal medial widening of the mortise persists on this two-view exam with overlying casting/bandage material obscuring the bony detail. The spiral fracture of the distal fibula is again noted. IMPRESSION: As above. Signed by Fidel Thompson DO 11/20/2016 11:16 A
[2016-11-20] MEDS: **hydrALAZINE HCL** 25 MG TAB PO SCH ×3 (11:23→21:06)
--- NOTE | 2016-11-20 11:23 | REP ---
REASON: Syncope. COMPARISON: 06/17/2013 There is echogenic material seen along the carotid arterial sanchez and circumferential to the bulb bilaterally, right greater than left. Some of the echogenic material casts an acoustic shadow. RIGHT LEFT CCA systolic 77.2 cm/s 154.0 cm/s CCA diastolic 13.5 cm/s 15.4 cm/s ICA systolic 104.5 cm/s 61.7 cm/s ICA diastolic 14.7cm/s 13.1 cm/s ICA/CCA ratio 1.35 0.4 Analysis of the spectral tracings shows no significant spectral broadening. Antegrade flow is seen in both vertebral arteries. IMPRESSION: According to the NASCET consensus criteria, there is less than 50% stenosis of the internal carotid artery bilaterally. Signed by Fidel Thompson DO 11/20/2016 11:48 A
[2016-11-20] MEDS: VENLAFAXINE **XR** 75MG CAPSULE PO SCH (11:24)
[2016-11-20] MEDS: GABAPENTIN 300 MG CAP PO SCH ×2 (11:25→21:05)
[2016-11-20] MEDS: METOPROLOL SUCC *XL* 25MG TAB (TopROL *XL*) PO SCH (11:25)
[2016-11-20] MEDS: fentaNYL 50 MCG/HR PATCH TD SCH (11:34)
[2016-11-20 12:00] VITALS: BP 141/61
[2016-11-20 16:00] VITALS: BP 162/75
[2016-11-20 21:01] VITALS: BP 162/68
[2016-11-20] MEDS: FENOFIBRATE 145 MG TAB (TRICOR) PO SCH (21:05)
[2016-11-20] MEDS: ATORVASTATIN 20 MG TAB PO SCH (21:05)
[2016-11-20] MEDS: NIACIN SR (NIASPAN) 500 MG TAB PO SCH (21:05)
[2016-11-20 23:56] VITALS: BP 138/52
[2016-11-21] MEDS: MORPHINE 2 MG/ML 1ML SYRINGE IV PRN ×6 (00:26→20:53)
[2016-11-21] MEDS ORDERED: SLF 3 ML SYR IV PRN (04:00)
[2016-11-21 04:45] VITALS: BP 142/60
[2016-11-21 05:02] LABS: INR 1.97
[2016-11-21] MEDS: SLF 3 ML SYR IV SCH ×3 (06:33→20:54)
[2016-11-21] MEDS: HumaLOG INSULIN (NovoLOG) PER UNIT SC SCH ×4 (07:27→20:54)
[2016-11-21 07:58] VITALS: BP 144/58
[2016-11-21] MEDS: SENOKOT S TAB PO SCH ×2 (08:54→20:54)
[2016-11-21] MEDS: PANTOPRAZOLE 40MG TAB (PROTONIX) PO SCH (08:54)
[2016-11-21] MEDS: METOPROLOL SUCC *XL* 25MG TAB (TopROL *XL*) PO SCH (08:55)
[2016-11-21] MEDS: **hydrALAZINE HCL** 25 MG TAB PO SCH ×3 (08:55→20:55)
[2016-11-21] MEDS: HEPARIN SOD (PORCINE) 5000 UNITS/ML VIAL SQ SCH ×3 (08:56→22:16)
[2016-11-21] MEDS: VENLAFAXINE **XR** 75MG CAPSULE PO SCH (08:56)
[2016-11-21] MEDS: GABAPENTIN 300 MG CAP PO SCH ×2 (08:56→20:53)
--- NOTE | 2016-11-21 11:02 | IPNPDOC ---
Subjective Date Seen The patient was seen on 11/21/16. Subjective Chief Complaint/HPI The patient is a 71-year-old male admitted with a reason for visit of Closed Left Ankle Fracture. Seen and examined at bedside. No acute event overnight. Patient is feeling better, still has left ankle pain when he moves, otherwise the pain was mild at rest. Patient denies any fever/chill, chest pain, sob, abdominal pain, nausea, vomiting, diarrhea, constipation, problems with urination. Denies any other current new complaints. Objective Physical Examination General Exam: Positive: Alert, Cooperative, No Acute Distress Eye Exam: Positive: Conjunctiva & lids normal, EOMI Chest Exam: Positive: Clear to auscultation, Normal air movement Heart Exam: Positive: Rate Normal, Regular Rhythm, Negative: Murmurs Telemetry: Positive: No significant arrhythmia Abdomen Exam: Positive: Normal bowel sounds, Soft, Negative: Tenderness Extremity Exam: Positive: Normal pulses, Other (LLE in cast, no swellong in RLE ) Psych Exam: Positive: Oriented x 3 Assessment /Plan Problems (1) Syncope Status: Acute Discussed With: Patient Problem Specific Plan: Monitor Clinically, Repeat Tests Problem Text: no clear etiology continue telemetry monitoring 2d echo pending (2) Closed left ankle fracture Status: Acute Discussed With: Patient Problem Specific Plan: Consult Specialist Problem Text: follow as per ortho plavix on hold for possible surgery inr supratherapeutic - received vitamin k 2.5mg x 1 (3) PVD (peripheral vascular disease) Status: Chronic Discussed With: Patient Problem Text: c/s Vascular Surgery Dr. Mclain, if cleared by Vascular will then need clearance from cardiology s/p multiple surgical repair asa/plavix/coumadin as home regimen coumadin/plavix on hold for possible surgery and elevated INR (4) HTN (hypertension) Status: Chronic Problem Specific Plan: Monitor Clinically Problem Text: hydralazine, metoprolol with hold parameters (5) Diabetes Status: Chronic Problem Text: modified diet, insulin sliding scale (6) Dyslipidemia Status: Chronic Problem Text: continue lipitor, tircor, niaspan (7) Abdominal aortic aneurysm Status: Chronic Problem Text: s/p surgical repair (8) CKD (chronic kidney disease) Status: Chronic (9) Chronic pain Status: Chronic Discussed With: Patient Problem Text: chronic back, shoulder pain, lower extremity. continue with home regimen - fentanyl patch, gabapentin (10) Anxiety and depression Status: Chronic Problem Text: effexor Plan/VTE VTE Prophylaxis Ordered?: Yes (on [place] Heparin) Plan IVF: Discontinue Diet: Advance Activity: Continue Current (as per ortho) Diagnostics: Repeat Labs in AM Anticipated Discharge: Home With Services Disposition Switched patient to [place] Hep for possible OR, he is currently off Coumadin INR is slightly less than 2 VS, I&O, 24H, Fishbone Vital Signs/I&O Vital Signs Date Time Temp Pulse Resp B/P (MAP) Pulse Ox O2 Delivery O2 Flow Rate FiO2 11/21/16 08:55 86 144/58 11/21/16 07:58 97.5 18 94 11/21/16 04:45 Room Air I&O- Last 24 Hours up to 6 AM 11/21/16 06:00 Intake Total 1050 ml Output Total 2650 ml Balance -1600 ml Laboratory Data 24H LABS Laboratory Tests 2 11/20/16 11:49: Bedside Glucose (Misc Panel) 206H 11/20/16 17:09: Bedside Glucose (Misc Panel) 178H 11/21/16 04:37: Prothrombin Time 23.1H, Prothromb Time International Ratio 1.97 11/21/16 07:15: Bedside Glucose (Misc Panel) 144H Microbiology Microbiology 11/20/16 Urine Culture - Final, Complete GME ATTESTATION GME ATTESTATION My preceptor for this patient encounter was physically present in the building during the encounter and was fully available. As needed, all aspects of the patient interview, examination, medical decision making process, and medical care plan development were reviewed and approved by the preceptor. Preceptor is aware and concurs with the plan as stated in the body of this note and will attest to such by his/her cosignature. CAROLE SAMPSON DO Nov 21, 2016 11:02
[2016-11-21 11:31] VITALS: BP 144/56
[2016-11-21] MEDS: PERCOCET 5MG/325MG TAB PO PRN (15:59)
[2016-11-21 16:00] VITALS: BP 132/58
[2016-11-21 19:54] VITALS: BP 146/58
[2016-11-21] MEDS: NIACIN SR (NIASPAN) 500 MG TAB PO SCH (20:53)
[2016-11-21] MEDS: ATORVASTATIN 20 MG TAB PO SCH (20:54)
[2016-11-21] MEDS: FENOFIBRATE 145 MG TAB (TRICOR) PO SCH (20:54)
[2016-11-21 23:59] VITALS: BP 162/76
[2016-11-22 04:42] VITALS: BP 122/64
[2016-11-22] MEDS: MORPHINE 2 MG/ML 1ML SYRINGE IV PRN ×3 (04:58→23:16)
[2016-11-22] MEDS: SLF 3 ML SYR IV SCH ×3 (05:02→20:08)
[2016-11-22 05:42] LABS: INR 1.44
[2016-11-22 05:50] LABS: PERCENT SATURATION 11.2 % (19.7-37.4)
[2016-11-22] MEDS ORDERED: HEPARIN SOD (PORCINE) 5000 UNITS/ML VIAL IV PRN (07:15)
[2016-11-22 07:48] VITALS: BP 138/58
--- NOTE | 2016-11-22 08:17 | IPNPDOC ---
Text Note Date of Service The patient was seen on 11/22/16. NOTE Patient is a 71-year-old male with a left ankle fracture requiring repair. Patient has had multiple previous meniscal surgeries including aneurysm repair 2, femoral femoral bypass grafting and revascularization of the left lower extremity. There is no contraindication from a vascular standpoint to repair of the left ankle fracture. The repair should be performed with out use of a tourniquet. I will reevaluate the patient postoperatively and that side at that time on postoperative anticoagulation. Full consult note to follow VS,Marv, I+O VS, Marv, I+O Vital Signs Date Time Temp Pulse Resp B/P (MAP) Pulse Ox O2 Delivery O2 Flow Rate FiO2 11/22/16 07:48 98.0 88 95 138/58 (84) 95 Room Air I&O- Last 24 Hours up to 6 AM 11/22/16 06:00 Intake Total 1320 ml Output Total 1925 ml Balance -605 ml Farhad Mclain MD Nov 22, 2016 08:17
[2016-11-22] MEDS: **hydrALAZINE HCL** 25 MG TAB PO SCH ×3 (09:00→21:00)
[2016-11-22] MEDS: SENOKOT S TAB PO SCH ×2 (09:00→20:07)
[2016-11-22] MEDS: GABAPENTIN 300 MG CAP PO SCH ×2 (09:32→20:07)
[2016-11-22] MEDS: VENLAFAXINE **XR** 75MG CAPSULE PO SCH (09:32)
[2016-11-22] MEDS: PANTOPRAZOLE 40MG TAB (PROTONIX) PO SCH (09:32)
[2016-11-22] MEDS: METOPROLOL SUCC *XL* 25MG TAB (TopROL *XL*) PO SCH (09:32)
[2016-11-22] MEDS: HumaLOG INSULIN (NovoLOG) PER UNIT SC SCH ×4 (09:34→20:08)
--- NOTE | 2016-11-22 10:24 | IPNPDOC ---
Subjective Date Seen The patient was seen on 11/22/16. Subjective Chief Complaint/HPI The patient is a 71-year-old male admitted with a reason for visit of Closed Left Ankle Fracture. Patient seen and examined at bedside in PCU. Patient is feeling well. Still admits to 08/31 for pain. Denies any fever/chill, chest pain, sob, abdominal pain , nausea, vomiting, diarrhea, constipation, or problems with urination. Denies any other current new complaints. Objective Physical Examination General Exam: Positive: Alert, Cooperative, No Acute Distress Eye Exam: Positive: Conjunctiva & lids normal, EOMI Chest Exam: Positive: Clear to auscultation, Normal air movement Heart Exam: Positive: Rate Normal, Regular Rhythm, Negative: Murmurs Telemetry: Positive: No significant arrhythmia Abdomen Exam: Positive: Normal bowel sounds, Soft, Negative: Tenderness Extremity Exam: Positive: Normal pulses, Other (LLE in cast, no swellong in RLE ) Skin Exam: Positive: Nl turgor and temperature Neuro Exam: Positive: Cranial Nerves 3-12 NL Psych Exam: Positive: Oriented x 3 Assessment /Plan Problems (1) Syncope Status: Acute Discussed With: Patient Problem Specific Plan: Monitor Clinically, Repeat Tests Problem Text: no clear etiology continue telemetry monitoring 2d echo pending (2) Acute renal injury Status: Acute Response to Treatment: Improving Problem Text: Likely from pre renal azotemia. Improved with IVF. Urine lytes not as useful due to he was on diuretics before admission. (3) Closed left ankle fracture Status: Acute Discussed With: Patient Problem Specific Plan: Consult Specialist Problem Text: follow as per ortho plavix on hold for possible surgery inr supratherapeutic - received vitamin k 2.5mg x 1 c/s vascular surgery Dr. Mclain, stated no contraindication from surgery from vascular standpoint, recommended not to use tourniquet during the surgery. Cardiology, Dr. Lopez was contacted and doesn't believe patient need a cardiology consult due to no prior cardiac events and normal nuclear stress test in 2008, also believed currently no current cardiac issues would prevent patient to have this surgery. Patient currently walks about 1 block and can climb two fights of stairs. His Mets is boarderline 4. Echo is pending will follow up. Started Heparin drip today 11/22/16 (4) PVD (peripheral vascular disease) Status: Chronic Discussed With: Patient Problem Text: c/s Vascular Surgery Dr. Mclain, if cleared by Vascular will then need clearance from cardiology s/p multiple surgical repair plavix/coumadin as home regimen coumadin/plavix on hold for possible surgery and elevated INR Started patient on Heparin drip 11/22/16 (5) HTN (hypertension) Status: Chronic Problem Specific Plan: Monitor Clinically Problem Text: hydralazine, metoprolol with hold parameters (6) Diabetes Status: Chronic Problem Text: modified diet, insulin sliding scale (7) Dyslipidemia Status: Chronic Problem Text: continue lipitor, tircor, niaspan (8) Abdominal aortic aneurysm Status: Chronic Problem Text: s/p surgical repair (9) CKD (chronic kidney disease) Status: Chronic (10) Chronic pain Status: Chronic Discussed With: Patient Problem Text: chronic back, shoulder pain, lower extremity. continue with home regimen - fentanyl patch, gabapentin (11) Anxiety and depression Status: Chronic Problem Text: effexor (12) Lactic acid acidosis Status: Resolved Problem Text: Likely due to acute renal failure and use of metformin. Continue to hold metformin while in hospital. If patient have recurrent lactic acidosis from metformin, then it should be considered to discontinue in the future. Plan/VTE VTE Prophylaxis Ordered?: Yes (on heparin drip) Plan IVF: Discontinue Diet: Advance Activity: Continue Current (as per ortho) Diagnostics: Repeat Labs in AM Anticipated Discharge: Home With Services Disposition Likely OR tomorrow, NPO after midnight VS, I&O, 24H, Fishbone Vital Signs/I&O Vital Signs Date Time Temp Pulse Resp B/P (MAP) Pulse Ox O2 Delivery O2 Flow Rate FiO2 11/22/16 09:32 88 138/58 11/22/16 07:48 98.0 95 95 Room Air I&O- Last 24 Hours up to 6 AM 11/22/16 06:00 Intake Total 1320 ml Output Total 1925 ml Balance -605 ml Laboratory Data 24H LABS Laboratory Tests 2 11/21/16 11:48: Bedside Glucose (Misc Panel) 162H 11/21/16 17:47: Bedside Glucose (Misc Panel) 179H 11/21/16 20:43: Bedside Glucose (Misc Panel) 146H 11/22/16 04:54: Prothrombin Time 17.9H, Prothromb Time International Ratio 1.44, Iron Level 31L , Total Iron Binding Capacity 278, Transferrin % Saturation 11.2L, Ferritin 165 11/22/16 07:34: Activated Partial Thromboplast Time 39.8H Microbiology Microbiology 11/20/16 Urine Culture - Final, Complete GME ATTESTATION GME ATTESTATION My preceptor for this patient encounter was physically present in the building during the encounter and was fully available. As needed, all aspects of the patient interview, examination, medical decision making process, and medical care plan development were reviewed and approved by the preceptor. Preceptor is aware and concurs with the plan as stated in the body of this note and will attest to such by his/her cosignature. ATTENDING NOTE I, Anne Sanchez, have both independently examined this patient as well as reviewed the documentation. I have discussed in detail with the resident the findings and plan of treatment as documented in the residents documentation. I will continue to follow the patient and offer further guidance to the patients care as necessary during this hospital stay. CAROLE SAMPSON DO Nov 22, 2016 10:23 ANNE SANCHEZ MD Nov 26, 2016 17:28
[2016-11-22 11:29] LABS: FOLATE 10.2 NG/ML (>5.4)
[2016-11-22 11:30] VITALS: BP 142/56
[2016-11-22 13:48] LABS: ANION GAP 10 MEQ/L (8-16); BLOOD UREA NITROGEN 21 MG/DL (7-18); CALCIUM LEVEL 9.2 MG/DL (8.8-10.2); CARBON DIOXIDE LEVEL 24 MEQ/L (21-32); CHLORIDE LEVEL 104 MEQ/L (98-107); CREATININE FOR GFR 1.25 MG/DL (0.70-1.30); GLOMERULAR FILTRATION RATE > 60.0 (>49); GLUCOSE, FASTING 162 MG/DL (80-110); POTASSIUM SERUM 4.7 MEQ/L (3.5-5.1); SODIUM LEVEL 138 MEQ/L (136-145)
[2016-11-22 14:56] LABS: MEAN CORPUSCULAR HEMOGLOBIN 32.5 pg (27.0-33.0); MEAN CORPUSCULAR HGB CONC 33.6 g/dl (32.0-36.5); MEAN CORPUSCULAR VOLUME 96.5 fl (80.0-96.0); RED CELL DISTRIBUTION WIDTH 14.4 % (11.5-14.5); WHITE BLOOD COUNT 8.7 K/mm3 (4.0-10.0)
[2016-11-22 15:52] VITALS: BP 148/62
[2016-11-22 19:38] VITALS: BP 150/65
--- NOTE | 2016-11-22 19:41 | ECHO ---
DATE OF PROCEDURE: 11/22/2016 AGE: 71 GENDER: Male HEIGHT: 72 inches WEIGHT: 268 pounds BODY SURFACE AREA: 2.42 sq m INPATIENT: Progressive care unit (PCU) room 3214. REFERRING PHYSICIAN: Dr. Benedicto Arana INDICATION: Syncope. MEASUREMENTS: 2D MEASUREMENTS: RV: 4.0 cm LV: 4.5 cm Septum: 1.3 cm Posterior wall: 1.3 cm Aortic root: 4.2 cm LA: 3.7 cm LVEF: 60% DOPPLER MEASUREMENTS: AV: 1.0 m/s LVOT: 0.6 m/s LVOT diameter: 2.4 cm MV-E: 46 A: 74 E/A ratio: 0.6 Early mitral deceleration time: 169 ms E prime: 6 A prime: 12 E/E prime ratio: 7.6 PV: 0.8 m/s Pulmonary artery acceleration time: 123 ms PASP: 24 mmHg IVC: 1.7 cm COMMENTS: Normal sinus rhythm/sinus arrhythmia with PACS. No intraventricular conduction disturbance. Technically difficult study in light of the patient's body habitus but diagnostically useful information was still obtained. Left atrial size upper limits of normal but normal left ventricular size. Right heart chamber sizes were also upper limits of normal. Left ventricle (LV) wall thickness was mildly increased symmetrically. On real-time imaging from the parasternal and apical projections, wall motion was symmetrical and normal. Mild to moderate mitral annular thickening but normal leaflet thickness and excursion with no posterior systolic buckling. Three equal size aortic cusps with mildly thickened cusp edges but adequate cusp separation. Mildly dilated aortic root. No apparent intracardiac mass. Epicardial fat pad was present. Color flow Doppler study taken from the parasternal and apical projection showed trace mitral and very mild tricuspid but no aortic insufficiency. Guided continuous wave Doppler of his aortic valve showed a normal peak systolic velocity against LV outflow tract obstruction. Pulsed and continuous wave Doppler of his LV inflow tract taken from the apical four-chamber projection showed normal diastolic filling velocities against mitral stenosis but there was some more prominent late diastolic / atrial dependent filling pattern. A degree of LV diastolic dysfunction was confirmed using tissue Doppler of his mitral annulus but current estimated mean left atrial pressure was within normal limits. Pulsed and continuous wave Doppler of his pulmonary trunk showed a normal peak systolic velocity against right ventricle (RV) outflow tract obstruction. His pulmonary artery acceleration time was normal against an elevated pulmonary vascular resistance. We attempted to further estimate his right ventricular systolic pressure using guided continuous wave Doppler of his tricuspid valve but could not get a clear spectral envelope. His inferior vena cava was of normal size with normal respiratory collapse against an elevated central venous pressure. CONCLUSIONS: Technically difficult study in light of the patient's body habitus. Unable to detect a structural or functional cause for the patient's syncopal spell. Mild left ventricle hypertrophy with preserved systolic function. Left atrial size upper limits of normal with Doppler evidence of an impairment of LV diastolic function but currently normal estimated mean left atrial pressure. Right heart chambers upper limits of normal in size with normal wall motion and current Doppler estimated pulmonary tear pressure. Mitral annular calcification without functional valvular abnormality. Mild aortic valvular sclerosis without functional valvular abnormality. Mildly dilated aortic root.
[2016-11-22] MEDS: NIACIN SR (NIASPAN) 500 MG TAB PO SCH (20:06)
[2016-11-22] MEDS: ATORVASTATIN 20 MG TAB PO SCH (20:07)
[2016-11-22] MEDS: FENOFIBRATE 145 MG TAB (TRICOR) PO SCH (20:07)
[2016-11-22] MEDS ORDERED: NS 1,000 ML IV SCH (20:15)
[2016-11-22 23:46] VITALS: BP 145/68
[2016-11-23 04:00] VITALS: BP 148/66
[2016-11-23] MEDS: SLF 3 ML SYR IV SCH ×3 (05:31→22:00)
[2016-11-23] MEDS: MORPHINE 2 MG/ML 1ML SYRINGE IV PRN ×3 (05:40→15:43)
[2016-11-23] MEDS: HEPARIN DRIP 25,000 UNITS in APPROPRIATE DILUENT 1 EA IV SCH (05:47)
[2016-11-23 07:32] LABS: MEAN CORPUSCULAR HGB CONC 33.7 g/dl (32.0-36.5); MEAN CORPUSCULAR VOLUME 95.1 fl (80.0-96.0); RED CELL DISTRIBUTION WIDTH 14.4 % (11.5-14.5); WHITE BLOOD COUNT 7.7 K/mm3 (4.0-10.0)
[2016-11-23 07:37] LABS: ANION GAP 10 MEQ/L (8-16); BLOOD UREA NITROGEN 19 MG/DL (7-18); CALCIUM LEVEL 9.1 MG/DL (8.8-10.2); CARBON DIOXIDE LEVEL 23 MEQ/L (21-32); CHLORIDE LEVEL 103 MEQ/L (98-107); CREATININE FOR GFR 1.21 MG/DL (0.70-1.30); GLOMERULAR FILTRATION RATE > 60.0 (>49); GLUCOSE, FASTING 173 MG/DL (80-110); MAGNESIUM LEVEL 1.6 MG/DL (1.8-2.4); SODIUM LEVEL 136 MEQ/L (136-145)
[2016-11-23 08:00] VITALS: BP 170/80
[2016-11-23] MEDS: **hydrALAZINE HCL** 25 MG TAB PO SCH ×3 (08:12→21:00)
[2016-11-23] MEDS: VENLAFAXINE **XR** 75MG CAPSULE PO SCH (08:12)
[2016-11-23] MEDS: SENOKOT S TAB PO SCH (08:12)
[2016-11-23] MEDS: METOPROLOL SUCC *XL* 25MG TAB (TopROL *XL*) PO SCH (08:12)
[2016-11-23] MEDS: PANTOPRAZOLE 40MG TAB (PROTONIX) PO SCH (08:12)
[2016-11-23] MEDS: GABAPENTIN 300 MG CAP PO SCH (08:13)
[2016-11-23] MEDS: HumaLOG INSULIN (NovoLOG) PER UNIT SC SCH ×4 (08:14→21:00)
[2016-11-23] MEDS ORDERED: MAG SULF 1GM/100ML (MAG RUN) 1 GM in APPROPRIATE DILUENT 1 EA IV ONE (10:00)
--- NOTE | 2016-11-23 10:01 | REP ---
AP AND LATERAL VIEWS OF THE LEFT TIBIA AND FIBULA: Previously described distal fibular fracture and tibiotalar subluxation again noted. The lateral view also shows a posterior malleolar fracture. There is a fracture involving the proximal fibula as well. Plantar and retrocalcaneal heel spurs are present. It should be stated that the lateral view of this exam replaces the lateral view of the ankle, which was not obtained during the ankle exam. 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 The posterior malleolus is also fractured. There is diffuse soft tissue swelling. Signed by Fidel Thompson DO 11/23/2016 04:57 P
--- NOTE | 2016-11-23 10:49 | IPNPDOC ---
Text Note Date of Service The patient was seen on 11/23/16. NOTE Discussed with vascular surgery (Dr. Mclain) that patient has been cleared from his standpoint. Discussed with Cardiology (Dr. Lopez) that the patient does not have any EKG changes, symptoms or cardiac history. Has had a stress test completed in 2008 that has been negative. ECHO has been completed on this admission and is without any significant abnormalities. Although, given his history of peripheral vascular disease, patient may still have a risk high of developing MA. Given all this, patient has been medically optimized for surgery ; intermediate risk. VS,Fishbone, I+O VS, Fishbone, I+O Laboratory Tests 11/22/16 12:17 Red Blood Count 3.93 L, Mean Corpuscular Volume 96.5 H, Mean Corpuscular Hemoglobin 32.5, Mean Corpuscular Hemoglobin Concent 33.6, Red Cell Distribution Width 14.4, Calcium Level 9.2 11/23/16 06:59 Red Blood Count 3.87 L, Mean Corpuscular Volume 95.1, Mean Corpuscular Hemoglobin 32.0, Mean Corpuscular Hemoglobin Concent 33.7, Red Cell Distribution Width 14.4, Calcium Level 9.1 Vital Signs Date Time Temp Pulse Resp B/P (MAP) Pulse Ox O2 Delivery O2 Flow Rate FiO2 11/23/16 08:23 16 11/23/16 08:12 93 170/80 11/23/16 08:00 99.2 94 Room Air I&O- Last 24 Hours up to 6 AM 11/23/16 06:00 Intake Total 926 ml Output Total 2025 ml Balance -1099 ml BRIDGER EDWARDS MD Nov 23, 2016 10:49
[2016-11-23 12:00] VITALS: BP 162/73
[2016-11-23] MEDS: fentaNYL 50 MCG/HR PATCH TD SCH (12:04)
--- NOTE | 2016-11-23 12:22 | IPNPDOC ---
Subjective Date Seen The patient was seen on 11/23/16. Subjective Chief Complaint/HPI The patient is a 71-year-old male admitted with a reason for visit of Closed Left Ankle Fracture. Patient is feeling about the same. Still has pain in the left ankle. Denies fever/chill, chest pain, sob, abdominal pain, nausea, vomiting, diarrhea, constipation, problems with urination. Ortho plan to have patient to go OR today. Objective Physical Examination General Exam: Positive: Alert, Cooperative, No Acute Distress Eye Exam: Positive: Conjunctiva & lids normal, EOMI Chest Exam: Positive: Clear to auscultation, Normal air movement Heart Exam: Positive: Rate Normal, Regular Rhythm, Negative: Murmurs Telemetry: Positive: No significant arrhythmia Abdomen Exam: Positive: Normal bowel sounds, Soft, Negative: Tenderness Extremity Exam: Positive: Normal pulses, Other (LLE in cast, no swellong in RLE ) Skin Exam: Positive: Nl turgor and temperature Neuro Exam: Positive: Cranial Nerves 3-12 NL Psych Exam: Positive: Oriented x 3 Assessment /Plan Problems (1) Syncope Status: Acute Discussed With: Patient Problem Specific Plan: Monitor Clinically, Repeat Tests Problem Text: no clear etiology continue telemetry monitoring 2d echo didn't show any structure abnormalities. (2) Acute renal injury Status: Acute Response to Treatment: Improving Problem Text: Likely from pre renal azotemia. Improved with IVF. Urine lytes not as useful due to he was on diuretics before admission. (3) Closed left ankle fracture Status: Acute Discussed With: Patient Problem Specific Plan: Consult Specialist Problem Text: Patient is optimized for OR for intermediate risk for cardiac event follow as per ortho plavix on hold for possible surgery inr supratherapeutic - received vitamin k 2.5mg x 1 c/s vascular surgery Dr. Mclain, stated no contraindication from surgery from vascular standpoint, recommended not to use tourniquet during the surgery. Cardiology, Dr. Lopez was contacted and doesn't believe patient need a cardiology consult due to no prior cardiac events and normal nuclear stress test in 2008, also believed currently no current cardiac issues would prevent patient to have this surgery. Patient currently walks about 1 block and can climb two fights of stairs. His Mets is boarderline 4. Started Heparin drip today 11/22/16, holding Heparin drip 4 hours before OR (4) PVD (peripheral vascular disease) Status: Chronic Discussed With: Patient Problem Text: c/s Vascular Surgery Dr. Mclain, if cleared by Vascular will then need clearance from cardiology s/p multiple surgical repair plavix/coumadin as home regimen coumadin/plavix on hold for possible surgery and elevated INR Started patient on Heparin drip 11/22/16, holding 4 hours before OR (5) HTN (hypertension) Status: Chronic Problem Specific Plan: Monitor Clinically Problem Text: hydralazine, metoprolol with hold parameters Also started patient on Norvasc (6) Diabetes Status: Chronic Problem Text: modified diet, insulin sliding scale (7) Dyslipidemia Status: Chronic Problem Text: continue lipitor, tircor, niaspan (8) Abdominal aortic aneurysm Status: Chronic Problem Text: s/p surgical repair (9) CKD (chronic kidney disease) Status: Chronic (10) Chronic pain Status: Chronic Discussed With: Patient Problem Text: chronic back, shoulder pain, lower extremity. continue with home regimen - fentanyl patch, gabapentin (11) Anxiety and depression Status: Chronic Problem Text: effexor (12) Lactic acid acidosis Status: Resolved Problem Text: Likely due to acute renal failure and use of metformin. Continue to hold metformin while in hospital. If patient have recurrent lactic acidosis from metformin, then it should be considered to discontinue in the future. (13) Hypomagnesemia Status: Acute Response to Treatment: Stable Problem Text: Repleted on 11/23/16 Plan/VTE VTE Prophylaxis Ordered?: Yes (on heparin drip) Plan IVF: Discontinue Diet: Advance Activity: Continue Current (as per ortho) Diagnostics: Repeat Labs in AM Anticipated Discharge: Home With Services VS, I&O, 24H, [facility] Vital Signs/I&O Vital Signs Date Time Temp Pulse Resp B/P (MAP) Pulse Ox O2 Delivery O2 Flow Rate FiO2 11/23/16 12:04 18 11/23/16 08:12 93 170/80 11/23/16 08:00 99.2 94 Room Air I&O- Last 24 Hours up to 6 AM 11/23/16 06:00 Intake Total 926 ml Output Total 2025 ml Balance -1099 ml Laboratory Data 24H LABS Laboratory Tests 2 11/22/16 12:17: Anion Gap 10, Glomerular Filtration Rate > 60.0, Blood Urea Nitrogen 21#H, Creatinine 1.25, Sodium Level 138, Potassium Level 4.7, Chloride Level 104, Carbon Dioxide Level 24, Calcium Level 9.2 11/22/16 16:03: Activated Partial Thromboplast Time 116.3H 11/22/16 16:25: Bedside Glucose (Misc Panel) 157H 11/22/16 20:05: Bedside Glucose (Misc Panel) 189H 11/22/16 23:05: Activated Partial Thromboplast Time 154.0*H 11/23/16 06:59: Activated Partial Thromboplast Time 66.4H, Anion Gap 10, Glomerular Filtration Rate > 60.0, Blood Urea Nitrogen 19H, Creatinine 1.21, Sodium Level 136, Potassium Level 4.0, Chloride Level 103, Carbon Dioxide Level 23, Calcium Level 9.1, Magnesium Level 1.6L 11/23/16 11:49: Bedside Glucose (Misc Panel) 160H CBC/BMP Laboratory Tests 11/22/16 12:17 Red Blood Count 3.93 L, Mean Corpuscular Volume 96.5 H, Mean Corpuscular Hemoglobin 32.5, Mean Corpuscular Hemoglobin Concent 33.6, Red Cell Distribution Width 14.4, Calcium Level 9.2 11/23/16 06:59 Red Blood Count 3.87 L, Mean Corpuscular Volume 95.1, Mean Corpuscular Hemoglobin 32.0, Mean Corpuscular Hemoglobin Concent 33.7, Red Cell Distribution Width 14.4, Calcium Level 9.1 Microbiology Microbiology 11/22/16 Stool Occult Blood (ALBERT) - Final, Complete 11/20/16 Urine Culture - Final, Complete GME ATTESTATION GME ATTESTATION My preceptor for this patient encounter was physically present in the building during the encounter and was fully available. As needed, all aspects of the patient interview, examination, medical decision making process, and medical care plan development were reviewed and approved by the preceptor. Preceptor is aware and concurs with the plan as stated in the body of this note and will attest to such by his/her cosignature. ATTENDING NOTE I, Anne Sanchez, have both independently examined this patient as well as reviewed the documentation. I have discussed in detail with the resident the findings and plan of treatment as documented in the residents documentation. I will continue to follow the patient and offer further guidance to the patients care as necessary during this hospital stay. CAROLE SAMPSON DO Nov 23, 2016 12:21 ANNE SANCHEZ MD Nov 26, 2016 17:32
[2016-11-23 16:00] VITALS: BP 152/79
[2016-11-23] MEDS ORDERED: ceFAZolin 2 GM/D5W 50 ML IV BAG (J0690) As Ordered ONE (17:55)
[2016-11-23] MEDS ORDERED: BUPIVACAINE HCL 0.5% 30 ML VIAL As Ordered ONE (18:30)
[2016-11-23] MEDS ORDERED: fentaNYL 250 MCG/5 ML INJECTION (J3010) As Ordered ONE (18:57)
[2016-11-23] MEDS ORDERED: MIDAZOLAM INJ 2 MG/2 ML VIAL (J2250) As Ordered ONE (19:25)
[2016-11-23] MEDS ORDERED: ROCURONIUM BROMIDE 50 MG/5 ML VIAL/SYRINGE As Ordered ONE (19:25)
[2016-11-23] MEDS ORDERED: PROPOFOL 200 MG/20 ML VIAL As Ordered ONE (19:25)
[2016-11-23] MEDS ORDERED: LIDOCAINE 2% INJ 100 MG/5 ML SDV (FOR ANES.) As Ordered ONE (19:25)
[2016-11-23] MEDS ORDERED: fentaNYL 100 MCG/2 ML INJECTION (J3010) As Ordered ONE ×2 (19:25→20:44)
[2016-11-23] MEDS ORDERED: ONDANSETRON 4MG/2ML VIAL (J2405) As Ordered ONE (20:04)
[2016-11-23] MEDS ORDERED: NEOSTIGMINE 1MG/ML 5 ML SYRINGE (J2710) As Ordered ONE (20:04)
[2016-11-23] MEDS ORDERED: GLYCOPYRROLATE INJ 0.2 MG/ML 2 ML VIAL As Ordered ONE (20:04)
[2016-11-23] MEDS ORDERED: LABETALOL HCL 100 MG/20 ML VIAL As Ordered ONE (20:43)
[2016-11-23] MEDS: fentaNYL 100 MCG/2 ML INJECTION (J3010) IV PRN ×4 (20:46→21:19)
[2016-11-23] MEDS: LABETALOL HCL 100 MG/20 ML VIAL IV SCH ×2 (20:48→20:58)
[2016-11-23] MEDS ORDERED: ONDANSETRON 4MG/2ML VIAL (J2405) IV PRN (21:00)
[2016-11-23] MEDS: NIACIN SR (NIASPAN) 500 MG TAB PO SCH (21:00)
[2016-11-23] MEDS ORDERED: PERCOCET 5MG/325MG TAB PO PRN (21:00)
[2016-11-23] MEDS ORDERED: LR 1,000 ML IV SCH (21:00)
[2016-11-23] MEDS ORDERED: HYDROmorphone HCL 1 MG/ML SYRINGE (J1170) As Ordered ONE ×2 (21:34→22:29)
[2016-11-23] MEDS: HYDROmorphone HCL 1 MG/ML SYRINGE (J1170) IV PRN ×3 (21:37→22:34)
[2016-11-23] MEDS ORDERED: NS 1,000 ML IV SCH (21:45)
[2016-11-23] MEDS ORDERED: PERCOCET 5MG/325MG TAB As Ordered ONE ×2 (22:58→23:15)
[2016-11-23] MEDS: PERCOCET 5MG/325MG TAB PO PRN ×2 (23:00→23:18)
[2016-11-23 23:30] VITALS: BP 200/86
[2016-11-24] VITALS (17 sets, daily range): BP systolic 114–202; BP diastolic 56–87; O2SAT 93–95
[2016-11-24] MEDS: FENOFIBRATE 145 MG TAB (TRICOR) PO SCH ×2 (00:46→21:29)
[2016-11-24] MEDS: SENOKOT S TAB PO SCH ×3 (00:46→21:29)
[2016-11-24] MEDS: GABAPENTIN 300 MG CAP PO SCH ×3 (00:47→21:28)
[2016-11-24] MEDS: ATORVASTATIN 20 MG TAB PO SCH ×2 (00:47→21:29)
[2016-11-24] MEDS: MORPHINE 2 MG/ML 1ML SYRINGE IV PRN ×6 (00:48→23:50)
[2016-11-24] MEDS ORDERED: **hydrALAZINE HCL** 25 MG TAB PO ONE (01:15)
--- NOTE | 2016-11-24 01:23 | REP ---
Clinical: Fracture fixation. Technique: Intraoperative fluoroscopic imaging. Findings: Multiple intraoperative fluoroscopic images demonstrate the patient to be status post satisfactory open reduction and fixation for lateral malleolar ankle fracture. Total fluoroscopic time 32 seconds. Impression: Satisfactory open reduction and fixation for lateral ankle fracture. Signed by Didier Villanueva MD 11/24/2016 01:14 A
[2016-11-24] MEDS: ceFAZolin SOD 1 GM in D5W MINI-BAG PLUS 50 ML IV SCH ×2 (02:17→10:08)
[2016-11-24] MEDS: SLF 3 ML SYR IV SCH ×3 (05:20→21:32)
[2016-11-24] MEDS: **hydrALAZINE** 50 MG TAB PO SCH ×3 (05:30→21:28)
[2016-11-24] MEDS: PERCOCET 5MG/325MG TAB PO PRN ×3 (05:33→21:30)
[2016-11-24 05:50] LABS: MEAN CORPUSCULAR HEMOGLOBIN 32.1 pg (27.0-33.0); MEAN CORPUSCULAR HGB CONC 33.9 g/dl (32.0-36.5); MEAN CORPUSCULAR VOLUME 94.7 fl (80.0-96.0); RED CELL DISTRIBUTION WIDTH 14.3 % (11.5-14.5); WHITE BLOOD COUNT 7.4 K/mm3 (4.0-10.0)
[2016-11-24] MEDS ORDERED: SLF 3 ML SYR IV SCH (06:00)
[2016-11-24 06:23] LABS: ANION GAP 11 MEQ/L (8-16); BLOOD UREA NITROGEN 21 MG/DL (7-18); CARBON DIOXIDE LEVEL 25 MEQ/L (21-32); CHLORIDE LEVEL 101 MEQ/L (98-107); CREATININE FOR GFR 1.25 MG/DL (0.70-1.30); GLOMERULAR FILTRATION RATE > 60.0 (>49); GLUCOSE, FASTING 134 MG/DL (80-110); MAGNESIUM LEVEL 1.7 MG/DL (1.8-2.4); POTASSIUM SERUM 4.4 MEQ/L (3.5-5.1); SODIUM LEVEL 137 MEQ/L (136-145)
[2016-11-24] MEDS: HumaLOG INSULIN (NovoLOG) PER UNIT SC SCH ×4 (07:30→21:00)
[2016-11-24] MEDS ORDERED: MAG SULF 1GM/100ML (MAG RUN) 1 GM in APPROPRIATE DILUENT 1 EA IV SCH (08:00)
[2016-11-24] MEDS ORDERED: SLF 3 ML SYR IV PRN (08:45)
[2016-11-24] MEDS: MIRALAX *UNIT DOSE* 17GM PACKET PO SCH (08:50)
[2016-11-24] MEDS: VENLAFAXINE **XR** 75MG CAPSULE PO SCH (08:52)
[2016-11-24] MEDS: PANTOPRAZOLE 40MG TAB (PROTONIX) PO SCH (08:52)
[2016-11-24] MEDS: METOPROLOL SUCC *XL* 25MG TAB (TopROL *XL*) PO SCH (08:53)
[2016-11-24] MEDS: HEPARIN DRIP 25,000 UNITS in APPROPRIATE DILUENT 1 EA IV SCH (10:55)
--- NOTE | 2016-11-24 14:32 | RO ---
DATE OF PROCEDURE: 11/23/2016 PREPROCEDURE DIAGNOSIS: Left ankle unstable bimalleolar fracture. POSTPROCEDURE DIAGNOSIS: Left ankle unstable bimalleolar fracture. PROCEDURE PERFORMED: Left ankle fibula open reduction and internal fixation, with syndesmosis fixation. PRIMARY SURGEON: Rufino Tavarez MD ANESTHESIA: General. ESTIMATED BLOOD LOSS: 100 mL. IMPLANTS: Synthes distal fibular locking plate and screws. ROTARY BAR OPERATOR: VIRGIL Ramos SPECIMENS: No specimens removed. No blood administered. COMPLICATIONS: None. 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 Banks and Dr. Franco, as well as Dr. Anne Sanchez; they updated me on the patient's lengthy medical history and his clinical course. I did see and examine the patient upon my arrival to the hospital and review his chart. In addition, I had a long conversation with the patient and his regarding the treatment options for this injury, operative and nonoperative and ultimately he did elect to go forward with the left ankle open reduction and internal fixation definitely understanding the risks and benefits given his comorbidities. Certainly he was aware that he is at increased risk for adverse outcome including infection, amputation or . This had been discussed with him previously as well by the other physicians and he and his were well aware. PROCEDURE The patient was identified in the preoperative holding area by name, medical record number and date of . The surgical site was marked in consultation with the patient and he was evaluated by anesthesia, When he was ready, he was brought to the operative suite on a gurney and transferred to the operating room table. At this point, general anesthesia was induced. The splint was removed from the left lower extremity and there were no fracture blisters. The swelling was minimal. There was 1+ dorsalis pedis pulse. Less than 2 seconds capillary refill on all of his toes, which were pink and warm as well. The left lower extremity was next sterilely prepped and draped in the usual fashion prior to the beginning of the procedure. A final time-out was performed and all of them agreed. He was given IV antibiotics, Ancef 2 grams prior to incision. I began the procedure by establishing a standard lateral approach to the distal fibula, dissecting down through the skin and subcutaneous fat. Next, identified the fracture site and preserving local structures, identified the segmental somewhat comminuted fracture, provisionally fixated it above and below with a pointed reduction clamp followed by a single lag screw distally with satisfactory reduction and position of the hardware by direct visualization and fluoroscopic views. I next placed an appropriately sized and contoured distal fibular locking plate from [employer] securing it above and below the fracture site with locking screws distally and cortical screws above. Additionally the segmental fragment was secured to the plate with satisfactory affect. At this time, by direct visualization and fluoroscopic views in multiple planes a satisfactory reduction and fixation of the fibula was appreciated. Two syndesmosis screws were passed with the distal tibial/fibular joint held in reduced and satisfactory position. The syndesmosis screws were passed and secured in satisfactory position. At this time, multiple fluoroscopic views and under direct visualization confirmed satisfactory reduction and internal fixation. The mortise was symmetric. The wound was next copiously irrigated and closed in layers. Following this blood pressure had dipped somewhat and I attempted to palpate and Doppler the dorsalis pedis pulse, but was unable to. I immediately contacted the vascular surgeon, Dr. Mclain, who said that he would come and evaluate the patient right away. He was well aware of this patient. Sterile dressings and a well padded L induce splint were applied. By this time , the patient's pressure had returned back close to baseline, significantly elevated, and less than 2 seconds capillary refill returned to all of his toes and I was able to palpate a 1+ dorsalis pedis pulse. Of note, I did have intact less than 2 seconds capillary refill even when his pressure was low, although I was not able to feel the pulse at that time. PLAN: At this time is that he will be evaluated by vascular surgeon this evening as above. Continue to monitor and transfer back to the inpatient unit for medical co-management with the hospitalist. Elevation, pain control, strict non-weightbearing of the left lower extremity. Deep vein thrombosis (DVT) prophylaxis will be discussed with the hospitalist and the vascular surgeon. ADRIÁN
--- NOTE | 2016-11-24 17:02 | IPNPDOC ---
Subjective Date Seen The patient was seen on 11/24/16. Subjective Chief Complaint/HPI The patient is a 71-year-old male admitted with a reason for visit of Closed Left Ankle Fracture. Seen and examined at bedside. No acute events overnight. Ankle repair went well yesterday. Patient still admits to moderate pain in the ankle, however he stated he is feeling much more comfortable. Denies any fever/ chill, chest pain, sob, abdominal pain, nausea, vomiting, diarrhea, constipation , or problems with urination. Denies any other current new complaints. Objective Physical Examination General Exam: Positive: Alert, Cooperative, No Acute Distress Eye Exam: Positive: Conjunctiva & lids normal, EOMI Chest Exam: Positive: Clear to auscultation, Normal air movement Heart Exam: Positive: Rate Normal, Regular Rhythm Telemetry: Positive: No significant arrhythmia Abdomen Exam: Positive: Normal bowel sounds, Soft Extremity Exam: Positive: Normal pulses, Other (left foot dressing dry, clean, intact) Skin Exam: Positive: Nl turgor and temperature Neuro Exam: Positive: Cranial Nerves 3-12 NL Psych Exam: Positive: Oriented x 3 Assessment /Plan Problems (1) Closed left ankle fracture Status: Acute Discussed With: Patient Problem Specific Plan: Consult Specialist Problem Text: Patient was optimized for OR for intermediate risk for cardiac event follow as per ortho plavix was on hold for surgery, will restart when surgery agrees c/s vascular surgery Dr. Mclain, stated no contraindication from surgery from vascular standpoint, recommended not to use tourniquet during the surgery. Cardiology, Dr. Lopez was contacted and doesn't believe patient need a cardiology consult due to no prior cardiac events and normal nuclear stress test in 2008, also believed currently no current cardiac issues would prevent patient to have this surgery. Patient prior to fracture walks about 1 block and can climb two fights of stairs. His Mets is boarderline 4. Heparin was on hold before surgery and has been restarted on the morning of Continue to monitor patient on cardiac telemetry for possible cardiac events due to severe peripheral vascular disease. (2) Syncope Status: Acute Discussed With: Patient Problem Specific Plan: Monitor Clinically, Repeat Tests Problem Text: no clear etiology continue telemetry monitoring 2d echo didn't show any structure abnormalities. (3) Acute renal injury Status: Acute Response to Treatment: Improving Problem Text: Likely from pre renal azotemia. Improved with IVF. Urine lytes not as useful due to he was on diuretics before admission. (4) PVD (peripheral vascular disease) Status: Chronic Discussed With: Patient Problem Text: c/s Vascular Surgery Dr. Mclain for clearance also monitor patient for arterial disease post surgery s/p multiple surgical repair plavix/coumadin as home regimen coumadin/plavix on hold for possible surgery and elevated INR Started patient on Heparin drip 11/22/16, holding 4 hours before OR, restarted day after surgery (5) HTN (hypertension) Status: Chronic Problem Specific Plan: Monitor Clinically Problem Text: hydralazine, metoprolol with hold parameters Also started patient on Norvasc (6) Diabetes Status: Chronic Problem Text: modified diet, insulin sliding scale (7) Dyslipidemia Status: Chronic Problem Text: continue lipitor, tircor, niaspan (8) Abdominal aortic aneurysm Status: Chronic Problem Text: s/p surgical repair (9) CKD (chronic kidney disease) Status: Chronic (10) Chronic pain Status: Chronic Discussed With: Patient Problem Text: chronic back, shoulder pain, lower extremity. continue with home regimen - fentanyl patch, gabapentin (11) Anxiety and depression Status: Chronic Problem Text: effexor (12) Lactic acid acidosis Status: Resolved Problem Text: Likely due to acute renal failure and use of metformin. Continue to hold metformin while in hospital. If patient have recurrent lactic acidosis from metformin, then it should be considered to discontinue in the future. (13) Hypomagnesemia Status: Acute Response to Treatment: Stable Problem Text: Repleted on 11/23/16 Plan/VTE VTE Prophylaxis Ordered?: Yes (on heparin drip) Plan IVF: Discontinue Diet: Advance Activity: Continue Current (as per ortho) Diagnostics: Repeat Labs in AM Anticipated Discharge: Home With Services VS, I&O, 24H, [facility] Vital Signs/I&O Vital Signs Date Time Temp Pulse Resp B/P (MAP) Pulse Ox O2 Delivery O2 Flow Rate FiO2 11/24/16 16:12 Nasal Cannula 2.0 11/24/16 14:27 20 11/24/16 14:16 162/58 11/24/16 14:00 98 95 11/24/16 12:00 97.6 95 I&O- Last 24 Hours up to 6 AM 11/24/16 06:00 Intake Total 2560 ml Output Total 1250 ml Balance 1310 ml Laboratory Data 24H LABS Laboratory Tests 2 11/23/16 21:20: Bedside Glucose (Misc Panel) 160H 11/24/16 05:28: Anion Gap 11, Glomerular Filtration Rate > 60.0, Blood Urea Nitrogen 21H, Creatinine 1.25, Sodium Level 137, Potassium Level 4.4, Chloride Level 101, Carbon Dioxide Level 25, Calcium Level 9.0, Magnesium Level 1.7L 11/24/16 08:35: Activated Partial Thromboplast Time 35.4 11/24/16 11:34: Bedside Glucose (Misc Panel) 250H CBC/BMP Laboratory Tests 11/24/16 05:28 Red Blood Count 4.01 L, Mean Corpuscular Volume 94.7, Mean Corpuscular Hemoglobin 32.1, Mean Corpuscular Hemoglobin Concent 33.9, Red Cell Distribution Width 14.3, Calcium Level 9.0 Microbiology Microbiology 11/22/16 Stool Occult Blood (ALBERT) - Final, Complete 11/20/16 Urine Culture - Final, Complete GME ATTESTATION GME ATTESTATION My preceptor for this patient encounter was physically present in the building during the encounter and was fully available. As needed, all aspects of the patient interview, examination, medical decision making process, and medical care plan development were reviewed and approved by the preceptor. Preceptor is aware and concurs with the plan as stated in the body of this note and will attest to such by his/her cosignature. ATTENDING NOTE I, Anne Sanchez, have both independently examined this patient as well as reviewed the documentation. I have discussed in detail with the resident the findings and plan of treatment as documented in the residents documentation. I will continue to follow the patient and offer further guidance to the patients care as necessary during this hospital stay. CAROLE SAMPSON DO Nov 24, 2016 17:02 ANNE SANCHEZ MD Nov 26, 2016 17:34
[2016-11-24] MEDS: NIACIN SR (NIASPAN) 500 MG TAB PO SCH (21:28)
--- NOTE | 2016-11-24 21:47 | IPNPDOC ---
Date Seen The patient was seen on 11/23/16. Progress Note SUBJECTIVE: Patient is status post repair of a left ankle fracture. Dr. Tavarez from orthopedics S me to evaluate the patient due to concerns for perfusion of his left lower extremity after undergoing a repair of his left ankle fracture. Patient is having a lot of pain in the ankle and foot region. OBJECTIVE PHYSICAL EXAMINATION: VITAL SIGNS: Please see below. GENERAL: Lying in bed in the recovery room sedated but arousable HEENT: Normal CARDIOVASCULAR: regular rate and rhythm. RESPIRATORY: Clear to auscultation bilaterally with decreased breath sounds at the bases. ABDOMINAL: Soft nontender nondistended EXTREMITIES: Bilateral lower extremities are well-perfused with dopplerable dorsalis pedis and posterior tibial pulses in the left lower extremity. NEUROLOGICAL: Awake alert oriented x3 with no focal deficits PSYCHOLOGICAL: Normal LABORATORY DATA: Please see below. MICROBIOLOGY: Please see below. IMAGING: I performed an ultrasound of the patient's cross femoral bypass graft which showed flow on Doppler ultrasound interrogation. ASSESSMENT AND PLAN: This is a 71-year-old white male with left ankle fracture. Patient has previously undergone an abdominal aortic aneurysm repair with femoral-femoral bypass grafting and left lower extremity revascularization. Patient was on Coumadin for graft patency which was stopped perioperatively. PROBLEMS: 1. peripheral arterial disease and left ankle fracture necessitating C station of the anticoagulations were grasped patency: The lower extremities are well- perfused there is good capillary refill in the left lower extremity and the femoral femoral bypass graft is patent on ultrasound evaluation. Plan is to starting heparin drip as soon as the patient is stable and clear to undergo heparinization per the orthopedic team. I discussed possible heparin drip with Dr. Tavarez who would prefer waiting at least another 12 hours before initiating heparin therapy to minimize risks of bleeding. VS, I&O, 24H, [facility] Vital Signs/I&O Vital Signs Date Time Temp Pulse Resp B/P (MAP) Pulse Ox O2 Delivery O2 Flow Rate FiO2 11/24/16 21:30 17 Nasal Cannula 2.0 11/24/16 21:28 140/56 11/24/16 20:00 93 90 11/24/16 20:00 98.5 96 I&O- Last 24 Hours up to 6 AM 11/24/16 05:59 Intake Total 2260 ml Output Total 850 ml Balance 1410 ml Laboratory Data 24H LABS Laboratory Tests 2 11/24/16 05:28: Anion Gap 11, Glomerular Filtration Rate > 60.0, Blood Urea Nitrogen 21H, Creatinine 1.25, Sodium Level 137, Potassium Level 4.4, Chloride Level 101, Carbon Dioxide Level 25, Calcium Level 9.0, Magnesium Level 1.7L 11/24/16 08:35: Activated Partial Thromboplast Time 35.4 11/24/16 11:34: Bedside Glucose (Misc Panel) 250H 11/24/16 17:05: Bedside Glucose (Misc Panel) 135H 11/24/16 17:15: Activated Partial Thromboplast Time 94.4H 11/24/16 21:24: Bedside Glucose (Misc Panel) 172H CBC/BMP Laboratory Tests 11/24/16 05:28 Red Blood Count 4.01 L, Mean Corpuscular Volume 94.7, Mean Corpuscular Hemoglobin 32.1, Mean Corpuscular Hemoglobin Concent 33.9, Red Cell Distribution Width 14.3, Calcium Level 9.0 Microbiology Microbiology 11/22/16 Stool Occult Blood (ALBERT) - Final, Complete 11/20/16 Urine Culture - Final, Complete Farhad Mclain MD Nov 24, 2016 21:47
--- NOTE | 2016-11-24 21:55 | IPNPDOC ---
Date Seen The patient was seen on 11/24/16. Progress Note SUBJECTIVE: Patient is without complaints. Left foot and ankle pain is much better controlled. OBJECTIVE PHYSICAL EXAMINATION: VITAL SIGNS: Please see below. GENERAL: Lying in bed in no apparent distress. HEENT: Normal CARDIOVASCULAR: Regular rate and rhythm. RESPIRATORY: Clear to auscultation bilaterally. ABDOMINAL: Soft nontender nondistended EXTREMITIES: Bilateral lower extremity is well-perfused with good capillary refill in the right left lower extremities. NEUROLOGICAL: Awake alert oriented x3 with no focal deficits PSYCHOLOGICAL: Normal LABORATORY DATA: Please see below. MICROBIOLOGY: Please see below. IMAGING: None Echocardiogram: None. DVT prophylaxis ordered?: Patient will be started on a heparin drip ASSESSMENT AND PLAN: This is a 71-year-old white male with left ankle fracture status post repair who has severe peripheral arterial disease and aortic aneurysmal disease. PROBLEMS: 1. arterial occlusive disease: Both lower extremities are well-perfused. The patient has had no signs of bleeding. The patient will be started on heparin drip without bolus and slowly titrated up to therapeutic levels. Patient was on Coumadin for graft patency. The patient will be transitioned to Eliquis postoperatively and discharged on this medication rather than Coumadin. VS, I&O, 24H, Fishbone Vital Signs/I&O Vital Signs Date Time Temp Pulse Resp B/P (MAP) Pulse Ox O2 Delivery O2 Flow Rate FiO2 11/24/16 21:30 17 Nasal Cannula 2.0 11/24/16 21:28 140/56 11/24/16 20:00 93 90 11/24/16 20:00 98.5 96 I&O- Last 24 Hours up to 6 AM 11/24/16 05:59 Intake Total 2260 ml Output Total 850 ml Balance 1410 ml Laboratory Data 24H LABS Laboratory Tests 2 11/24/16 05:28: Anion Gap 11, Glomerular Filtration Rate > 60.0, Blood Urea Nitrogen 21H, Creatinine 1.25, Sodium Level 137, Potassium Level 4.4, Chloride Level 101, Carbon Dioxide Level 25, Calcium Level 9.0, Magnesium Level 1.7L 11/24/16 08:35: Activated Partial Thromboplast Time 35.4 11/24/16 11:34: Bedside Glucose (Misc Panel) 250H 11/24/16 17:05: Bedside Glucose (Misc Panel) 135H 11/24/16 17:15: Activated Partial Thromboplast Time 94.4H 11/24/16 21:24: Bedside Glucose (Misc Panel) 172H CBC/BMP Laboratory Tests 11/24/16 05:28 Red Blood Count 4.01 L, Mean Corpuscular Volume 94.7, Mean Corpuscular Hemoglobin 32.1, Mean Corpuscular Hemoglobin Concent 33.9, Red Cell Distribution Width 14.3, Calcium Level 9.0 Microbiology Microbiology 11/22/16 Stool Occult Blood (ALBERT) - Final, Complete 11/20/16 Urine Culture - Final, Complete Farhad Mclain MD Nov 24, 2016 21:55
[2016-11-25] VITALS (20 sets, daily range): BP systolic 110–176; BP diastolic 46–80; O2SAT 91–97
[2016-11-25] MEDS: HEPARIN DRIP 25,000 UNITS in APPROPRIATE DILUENT 1 EA IV SCH ×2 (02:34→23:00)
[2016-11-25] MEDS: PERCOCET 5MG/325MG TAB PO PRN ×3 (02:35→18:49)
[2016-11-25 04:48] LABS: MEAN CORPUSCULAR HEMOGLOBIN 31.6 pg (27.0-33.0); MEAN CORPUSCULAR HGB CONC 33.6 g/dl (32.0-36.5); MEAN CORPUSCULAR VOLUME 94.1 fl (80.0-96.0); RED CELL DISTRIBUTION WIDTH 14.5 % (11.5-14.5); WHITE BLOOD COUNT 6.6 K/mm3 (4.0-10.0)
[2016-11-25 05:09] LABS: ANION GAP 7 MEQ/L (8-16); BLOOD UREA NITROGEN 19 MG/DL (7-18); CALCIUM LEVEL 8.6 MG/DL (8.8-10.2); CARBON DIOXIDE LEVEL 26 MEQ/L (21-32); CHLORIDE LEVEL 102 MEQ/L (98-107); CREATININE FOR GFR 1.12 MG/DL (0.70-1.30); GLOMERULAR FILTRATION RATE > 60.0 (>49); GLUCOSE, FASTING 155 MG/DL (80-110); MAGNESIUM LEVEL 1.9 MG/DL (1.8-2.4); POTASSIUM SERUM 4.2 MEQ/L (3.5-5.1); SODIUM LEVEL 135 MEQ/L (136-145)
[2016-11-25] MEDS: SLF 3 ML SYR IV SCH ×3 (05:57→20:54)
[2016-11-25] MEDS: **hydrALAZINE** 50 MG TAB PO SCH ×3 (05:57→20:34)
[2016-11-25] MEDS: HumaLOG INSULIN (NovoLOG) PER UNIT SC SCH ×4 (08:25→20:51)
[2016-11-25] MEDS: MIRALAX *UNIT DOSE* 17GM PACKET PO SCH ×2 (08:26→08:35)
[2016-11-25] MEDS: VENLAFAXINE **XR** 75MG CAPSULE PO SCH (08:26)
[2016-11-25] MEDS: GABAPENTIN 300 MG CAP PO SCH ×2 (08:27→20:35)
[2016-11-25] MEDS: PANTOPRAZOLE 40MG TAB (PROTONIX) PO SCH (08:27)
[2016-11-25] MEDS: SENOKOT S TAB PO SCH ×2 (08:28→20:36)
[2016-11-25] MEDS: METOPROLOL SUCC *XL* 25MG TAB (TopROL *XL*) PO SCH (08:33)
[2016-11-25] MEDS ORDERED: DULoxetine 30 MG CAP (CYMBALTA) PO SCH (09:00)
[2016-11-25] MEDS: MORPHINE 2 MG/ML 1ML SYRINGE IV PRN ×2 (09:23→18:07)
[2016-11-25] MEDS: NS 1,000 ML IV SCH ×2 (10:59→22:42)
[2016-11-25] MEDS: COMBIGAN EYE DROPS (PATIENT'S OWN MED) OS SCH ×2 (12:10→20:52)
--- NOTE | 2016-11-25 15:15 | IPNPDOC ---
Subjective Date Seen The patient was seen on 11/25/16. Subjective Chief Complaint/HPI The patient is a 71-year-old male admitted with a reason for visit of Closed Left Ankle Fracture. Seen and examined at the bedside. Patient is feeling the same. Still has moderate ankle pain. Denies fever/chill, chest pain, sob, abdominal pain, nausea, vomiting, diarrhea, constipation, problems with urination. Denies any other current new complaints. Objective Physical Examination General Exam: Positive: Alert, Cooperative, No Acute Distress Eye Exam: Positive: Conjunctiva & lids normal, EOMI Chest Exam: Positive: Clear to auscultation, Normal air movement Heart Exam: Positive: Rate Normal, Regular Rhythm Telemetry: Positive: No significant arrhythmia Abdomen Exam: Positive: Normal bowel sounds, Soft Extremity Exam: Positive: Normal pulses, Other (left foot dressing dry, clean, intact) Skin Exam: Positive: Nl turgor and temperature Neuro Exam: Positive: Cranial Nerves 3-12 NL Psych Exam: Positive: Oriented x 3 Assessment /Plan Problems (1) Closed left ankle fracture Status: Acute Discussed With: Patient Problem Specific Plan: Consult Specialist Problem Text: S/P left ankle fibular ORIF with syndesmosis fixation with Dr. Tavarez POD #2 Patient was optimized for OR for intermediate risk for cardiac event follow as per ortho plavix was on hold for surgery, will restart when ortho and vascular surgery agrees Vascular plan to switch patient to Eliquis before patient goes home. c/s vascular surgery Dr. Mclain, stated no contraindication from surgery from vascular standpoint, recommended not to use tourniquet during the surgery. Cardiology, Dr. Lopez was contacted and doesn't believe patient need a cardiology consult due to no prior cardiac events and normal nuclear stress test in 2008, also believed currently no current cardiac issues would prevent patient to have this surgery. Patient prior to fracture walks about 1 block and can climb two fights of stairs. His Mets is boarderline 4. Heparin was on hold before surgery and has been restarted on the morning of Continue to monitor patient on cardiac telemetry for possible cardiac events due to severe peripheral vascular disease. (2) Syncope Status: Acute Discussed With: Patient Problem Specific Plan: Monitor Clinically, Repeat Tests Problem Text: no clear etiology continue telemetry monitoring 2d echo didn't show any structure abnormalities. (3) Acute renal injury Status: Acute Response to Treatment: Improving Problem Text: Likely from pre renal azotemia. Improved with IVF. Urine lytes not as useful due to he was on diuretics before admission. (4) PVD (peripheral vascular disease) Status: Chronic Discussed With: Patient Problem Text: c/s Vascular Surgery Dr. Mclain for clearance also monitor patient for arterial disease post surgery s/p multiple surgical repair plavix/coumadin as home regimen coumadin/plavix on hold for possible surgery and elevated INR Started patient on Heparin drip 11/22/16, holding 4 hours before OR, restarted day after surgery (5) HTN (hypertension) Status: Chronic Problem Specific Plan: Monitor Clinically Problem Text: hydralazine, metoprolol with hold parameters Also started patient on Norvasc (6) Diabetes Status: Chronic Problem Text: modified diet, insulin sliding scale (7) Dyslipidemia Status: Chronic Problem Text: continue lipitor, tircor, niaspan (8) Abdominal aortic aneurysm Status: Chronic Problem Text: s/p surgical repair (9) CKD (chronic kidney disease) Status: Chronic (10) Chronic pain Status: Chronic Discussed With: Patient Problem Text: chronic back, shoulder pain, lower extremity. continue with home regimen - fentanyl patch, gabapentin (11) Anxiety and depression Status: Chronic Problem Text: effexor (12) Lactic acid acidosis Status: Resolved Problem Text: Likely due to acute renal failure and use of metformin. Continue to hold metformin while in hospital. If patient have recurrent lactic acidosis from metformin, then it should be considered to discontinue in the future. (13) Hypomagnesemia Status: Acute Response to Treatment: Stable Problem Text: Repleted on 11/23/16 Plan/VTE VTE Prophylaxis Ordered?: Yes (on heparin drip) Plan IVF: Discontinue Diet: Advance Activity: Continue Current (as per ortho) Diagnostics: Repeat Labs in AM Anticipated Discharge: Home With Services VS, I&O, 24H, [facility] Vital Signs/I&O Vital Signs Date Time Temp Pulse Resp B/P (MAP) Pulse Ox O2 Delivery O2 Flow Rate FiO2 11/25/16 14:42 148/68 11/25/16 14:34 97 11/25/16 12:37 20 Room Air 11/25/16 12:00 92 11/25/16 09:33 2.0 11/25/16 08:00 97.9 I&O- Last 24 Hours up to 6 AM 11/25/16 06:00 Intake Total 1308 ml Output Total 1375 ml Balance -67 ml Laboratory Data 24H LABS Laboratory Tests 2 11/24/16 17:05: Bedside Glucose (Misc Panel) 135H 11/24/16 17:15: Activated Partial Thromboplast Time 94.4H 11/24/16 21:24: Bedside Glucose (Misc Panel) 172H 11/24/16 23:14: Activated Partial Thromboplast Time 116.5H 11/25/16 04:26: Anion Gap 7L, Glomerular Filtration Rate > 60.0, Blood Urea Nitrogen 19H, Creatinine 1.12, Sodium Level 135L, Potassium Level 4.2, Chloride Level 102, Carbon Dioxide Level 26, Calcium Level 8.6L, Magnesium Level 1.9 11/25/16 07:36: Activated Partial Thromboplast Time 89.3H 11/25/16 11:41: Bedside Glucose (Misc Panel) 167H 11/25/16 13:41: Activated Partial Thromboplast Time 77.2H CBC/BMP Laboratory Tests 11/25/16 04:26 Red Blood Count 3.57 L, Mean Corpuscular Volume 94.1, Mean Corpuscular Hemoglobin 31.6, Mean Corpuscular Hemoglobin Concent 33.6, Red Cell Distribution Width 14.5, Calcium Level 8.6 L Microbiology Microbiology 11/22/16 Stool Occult Blood (ALBERT) - Final, Complete 11/20/16 Urine Culture - Final, Complete GME ATTESTATION GME ATTESTATION My preceptor for this patient encounter was physically present in the building during the encounter and was fully available. As needed, all aspects of the patient interview, examination, medical decision making process, and medical care plan development were reviewed and approved by the preceptor. Preceptor is aware and concurs with the plan as stated in the body of this note and will attest to such by his/her cosignature. ATTENDING NOTE I, Anne Sanchez, have both independently examined this patient as well as reviewed the documentation. I have discussed in detail with the resident the findings and plan of treatment as documented in the residents documentation. I will continue to follow the patient and offer further guidance to the patients care as necessary during this hospital stay. CAROLE SAMPSON DO Nov 25, 2016 15:14 ANNE SANCHEZ MD Nov 26, 2016 17:36
[2016-11-25] MEDS: FENOFIBRATE 145 MG TAB (TRICOR) PO SCH (20:34)
[2016-11-25] MEDS: ATORVASTATIN 20 MG TAB PO SCH (20:34)
[2016-11-25] MEDS: NIACIN SR (NIASPAN) 500 MG TAB PO SCH (20:52)
[2016-11-25] MEDS: LUMIGAN EYE DROPS (PATIENT'S OWN MED) OU SCH (20:52)
--- NOTE | 2016-11-25 22:56 | IPNPDOC ---
Date Seen The patient was seen on 11/25/16. Progress Note SUBJECTIVE: Patient states pain in the left foot is minimal. OBJECTIVE PHYSICAL EXAMINATION: VITAL SIGNS: Please see below. GENERAL: Lying in bed in no apparent distress HEENT: Normal CARDIOVASCULAR: Regular rate rhythm. RESPIRATORY: Clear to auscultation bilaterally. ABDOMINAL: Soft nontender nondistended with no palpable pulsatile mass EXTREMITIES: Bilateral lower extremities are well perfused with good capillary refill, and good range of motion and intact sensory function. NEUROLOGICAL: Awake alert oriented x3 with no focal deficits PSYCHOLOGICAL: Normal LABORATORY DATA: Please see below. MICROBIOLOGY: Please see below. ASSESSMENT AND PLAN: This is a 71-year-old white male with left ankle fracture status post repair with a history of severe peripheral vascular disease. PROBLEMS: 1. peripheral vascular disease: His lower extremities are well perfused with no signs of malperfusion. No interventions are required at this time and the patient is currently on a heparin drip and will be transitioned to anticoagulation with Eliquis. VS, I&O, 24H, [facility] Vital Signs/I&O Vital Signs Date Time Temp Pulse Resp B/P (MAP) Pulse Ox O2 Delivery O2 Flow Rate FiO2 11/25/16 20:34 152/73 11/25/16 20:17 98.1 84 18 94 Room Air 11/25/16 09:33 2.0 I&O- Last 24 Hours up to 6 AM 11/25/16 05:59 Intake Total 1582 ml Output Total 1775 ml Balance -193 ml Laboratory Data 24H LABS Laboratory Tests 2 11/24/16 23:14: Activated Partial Thromboplast Time 116.5H 11/25/16 04:26: Anion Gap 7L, Glomerular Filtration Rate > 60.0, Blood Urea Nitrogen 19H, Creatinine 1.12, Sodium Level 135L, Potassium Level 4.2, Chloride Level 102, Carbon Dioxide Level 26, Calcium Level 8.6L, Magnesium Level 1.9 11/25/16 07:36: Activated Partial Thromboplast Time 89.3H 11/25/16 11:41: Bedside Glucose (Misc Panel) 167H 11/25/16 13:41: Activated Partial Thromboplast Time 77.2H 11/25/16 16:43: Bedside Glucose (Misc Panel) 129H 11/25/16 20:50: Bedside Glucose (Misc Panel) 191H CBC/BMP Laboratory Tests 11/25/16 04:26 Red Blood Count 3.57 L, Mean Corpuscular Volume 94.1, Mean Corpuscular Hemoglobin 31.6, Mean Corpuscular Hemoglobin Concent 33.6, Red Cell Distribution Width 14.5, Calcium Level 8.6 L Microbiology Microbiology 11/22/16 Stool Occult Blood (ALBERT) - Final, Complete 11/20/16 Urine Culture - Final, Complete Farhad Mclain MD Nov 25, 2016 22:56
[2016-11-26] VITALS (22 sets, daily range): BP systolic 124–170; BP diastolic 58–80; O2SAT 90–96
[2016-11-26] MEDS: PERCOCET 5MG/325MG TAB PO PRN ×7 (01:08→23:47)
[2016-11-26] MEDS: MORPHINE 2 MG/ML 1ML SYRINGE IV PRN (04:17)
[2016-11-26] MEDS: **hydrALAZINE** 50 MG TAB PO SCH ×3 (05:28→21:48)
[2016-11-26] MEDS: SLF 3 ML SYR IV SCH ×3 (05:29→22:00)
[2016-11-26 05:33] LABS: MEAN CORPUSCULAR HEMOGLOBIN 31.2 pg (27.0-33.0); MEAN CORPUSCULAR HGB CONC 32.6 g/dl (32.0-36.5); MEAN CORPUSCULAR VOLUME 95.7 fl (80.0-96.0); RED CELL DISTRIBUTION WIDTH 14.1 % (11.5-14.5); WHITE BLOOD COUNT 6.8 K/mm3 (4.0-10.0)
[2016-11-26 05:35] LABS: ANION GAP 14 MEQ/L (8-16); BLOOD UREA NITROGEN 20 MG/DL (7-18); CARBON DIOXIDE LEVEL 21 MEQ/L (21-32); CHLORIDE LEVEL 105 MEQ/L (98-107); CREATININE FOR GFR 1.06 MG/DL (0.70-1.30); GLOMERULAR FILTRATION RATE > 60.0 (>49); GLUCOSE, FASTING 154 MG/DL (80-110); MAGNESIUM LEVEL 1.9 MG/DL (1.8-2.4); POTASSIUM SERUM 3.9 MEQ/L (3.5-5.1); SODIUM LEVEL 140 MEQ/L (136-145)
[2016-11-26] MEDS: HumaLOG INSULIN (NovoLOG) PER UNIT SC SCH ×4 (08:07→21:00)
[2016-11-26] MEDS: MIRALAX *UNIT DOSE* 17GM PACKET PO SCH (09:53)
[2016-11-26] MEDS: GABAPENTIN 300 MG CAP PO SCH ×2 (09:53→21:47)
[2016-11-26] MEDS: METOPROLOL SUCC *XL* 25MG TAB (TopROL *XL*) PO SCH (09:53)
[2016-11-26] MEDS: DULoxetine 30 MG CAP (CYMBALTA) PO SCH (09:54)
[2016-11-26] MEDS: SENOKOT S TAB PO SCH ×2 (09:54→21:47)
[2016-11-26] MEDS: COMBIGAN EYE DROPS (PATIENT'S OWN MED) OS SCH ×2 (09:55→21:49)
[2016-11-26] MEDS: PANTOPRAZOLE 40MG TAB (PROTONIX) PO SCH (09:55)
[2016-11-26] MEDS ORDERED: amLODIPine 5 MG TAB PO ONE (10:00)
[2016-11-26] MEDS: fentaNYL 50 MCG/HR PATCH TD SCH (11:37)
[2016-11-26] MEDS: amLODIPine 5 MG TAB PO SCH (14:02)
--- NOTE | 2016-11-26 14:19 | IPNPDOC ---
Subjective Date Seen The patient was seen on 11/26/16. Subjective Chief Complaint/HPI The patient is a 71-year-old male admitted with a reason for visit of Closed Left Ankle Fracture. Patient seen and examined at bedside. No acute event over night. Patient is feeling a little better. Admits to mild left ankle pain. Denies fever/chill, chest pain, shortness of breath, nausea, vomiting, diarrhea , constipation, problems with urination. Denies any other current new complaints. Objective Physical Examination General Exam: Positive: Alert, Cooperative, No Acute Distress Eye Exam: Positive: Conjunctiva & lids normal, EOMI Chest Exam: Positive: Clear to auscultation, Normal air movement Heart Exam: Positive: Rate Normal, Regular Rhythm Telemetry: Positive: No significant arrhythmia Abdomen Exam: Positive: Normal bowel sounds, Soft Extremity Exam: Positive: Normal pulses, Other (left foot dressing dry, clean, intact) Skin Exam: Positive: Nl turgor and temperature Neuro Exam: Positive: Cranial Nerves 3-12 NL Psych Exam: Positive: Oriented x 3 Assessment /Plan Problems (1) Closed left ankle fracture Status: Acute Discussed With: Patient Problem Specific Plan: Consult Specialist Problem Text: S/P left ankle fibular ORIF with syndesmosis fixation with Dr. Tavarez POD #3 Patient was optimized for OR for intermediate risk for cardiac event follow as per ortho plavix was on hold for surgery, will restart when ortho and vascular surgery agrees Vascular will switch patient to Eliquis before patient goes home. c/s vascular surgery Dr. Mclain, stated no contraindication from surgery from vascular standpoint, recommended not to use tourniquet during the surgery. Cardiology, Dr. Lopez was contacted and doesn't believe patient need a cardiology consult due to no prior cardiac events and normal nuclear stress test in 2008, also believed currently no current cardiac issues would prevent patient to have this surgery. Patient prior to fracture walks about 1 block and can climb two fights of stairs. His Mets is boarderline 4. Heparin was on hold before surgery and has been restarted on the morning of Continue to monitor patient on cardiac telemetry for possible cardiac events due to severe peripheral vascular disease. (2) Syncope Status: Acute Discussed With: Patient Problem Specific Plan: Monitor Clinically, Repeat Tests Problem Text: no clear etiology continue telemetry monitoring 2d echo didn't show any structure abnormalities. Switched Effexor to Cymbalta for less side effects (3) Acute renal injury Status: Acute Response to Treatment: Improving Problem Text: Likely from pre renal azotemia. Improved with IVF. Urine lytes not as useful due to he was on diuretics before admission. (4) PVD (peripheral vascular disease) Status: Chronic Discussed With: Patient Problem Text: c/s Vascular Surgery Dr. Mclain for clearance also monitor patient for arterial disease post surgery s/p multiple surgical repair plavix/coumadin as home regimen coumadin/plavix on hold for possible surgery and elevated INR -On heparin drip, switch to Eliquis later (5) HTN (hypertension) Status: Chronic Problem Specific Plan: Monitor Clinically Problem Text: hydralazine, metoprolol with hold parameters Also started patient on Norvasc (6) Diabetes Status: Chronic Problem Text: modified diet, insulin sliding scale (7) Dyslipidemia Status: Chronic Problem Text: continue lipitor, tircor, niaspan (8) Abdominal aortic aneurysm Status: Chronic Problem Text: s/p surgical repair (9) CKD (chronic kidney disease) Status: Chronic (10) Chronic pain Status: Chronic Discussed With: Patient Problem Text: chronic back, shoulder pain, lower extremity. continue with home regimen - fentanyl patch, gabapentin (11) Anxiety and depression Status: Chronic Problem Text: switched Effexor to Cymbalta for less side effect causing dizziness (12) Lactic acid acidosis Status: Resolved Problem Text: Likely due to acute renal failure and use of metformin. Continue to hold metformin while in hospital. If patient have recurrent lactic acidosis from metformin, then it should be considered to discontinue in the future. (13) Hypomagnesemia Status: Acute Response to Treatment: Stable Problem Text: Repleted on 11/23/16 Plan/VTE VTE Prophylaxis Ordered?: Yes (on heparin drip) Plan IVF: Discontinue Diet: Advance Activity: Continue Current (as per ortho) Diagnostics: Repeat Labs in AM Anticipated Discharge: Home With Services VS, [facility] Vital Signs/I&O Vital Signs Date Time Temp Pulse Resp B/P (MAP) Pulse Ox O2 Delivery O2 Flow Rate FiO2 11/26/16 12:07 18 Room Air 11/26/16 12:00 98.1 85 150/72 (98) 95 11/25/16 09:33 2.0 I&O- Last 24 Hours up to 6 AM 11/26/16 06:00 Intake Total 2192 ml Output Total 3150 ml Balance -958 ml Laboratory Data 24H LABS Laboratory Tests 2 11/25/16 16:43: Bedside Glucose (Misc Panel) 129H 11/25/16 20:50: Bedside Glucose (Misc Panel) 191H 11/26/16 05:04: Activated Partial Thromboplast Time 77.9H, Anion Gap 14, Glomerular Filtration Rate > 60.0, Blood Urea Nitrogen 20H, Creatinine 1.06, Sodium Level 140, Potassium Level 3.9, Chloride Level 105, Carbon Dioxide Level 21, Calcium Level 9.0, Magnesium Level 1.9 11/26/16 11:36: Bedside Glucose (Misc Panel) 162H CBC/BMP Laboratory Tests 11/26/16 05:04 Red Blood Count 3.34 L, Mean Corpuscular Volume 95.7, Mean Corpuscular Hemoglobin 31.2, Mean Corpuscular Hemoglobin Concent 32.6, Red Cell Distribution Width 14.1, Calcium Level 9.0 Microbiology Microbiology 11/22/16 Stool Occult Blood (ALBERT) - Final, Complete 11/20/16 Urine Culture - Final, Complete GME ATTESTATION GME ATTESTATION My preceptor for this patient encounter was physically present in the building during the encounter and was fully available. As needed, all aspects of the patient interview, examination, medical decision making process, and medical care plan development were reviewed and approved by the preceptor. Preceptor is aware and concurs with the plan as stated in the body of this note and will attest to such by his/her cosignature. ATTENDING NOTE I, Anne Sanchez, have both independently examined this patient as well as reviewed the documentation. I have discussed in detail with the resident the findings and plan of treatment as documented in the residents documentation. I will continue to follow the patient and offer further guidance to the patients care as necessary during this hospital stay. CAROLE SAMPSON DO Nov 26, 2016 14:19 ANNE SANCHEZ MD Dec 20, 2016 18:48
[2016-11-26] MEDS ORDERED: APIXABAN 5 MG TAB (ELIQUIS) PO SCH (16:30)
[2016-11-26] MEDS: APIXABAN 5 MG TAB (ELIQUIS) PO SCH (17:52)
[2016-11-26] MEDS: LUMIGAN EYE DROPS (PATIENT'S OWN MED) OU SCH (21:00)
[2016-11-26] MEDS: ATORVASTATIN 20 MG TAB PO SCH (21:47)
[2016-11-26] MEDS: FENOFIBRATE 145 MG TAB (TRICOR) PO SCH (21:47)
[2016-11-26] MEDS: NIACIN SR (NIASPAN) 500 MG TAB PO SCH (21:48)
[2016-11-27] VITALS (20 sets, daily range): BP systolic 127–181; BP diastolic 68–92; O2SAT 94–97
[2016-11-27 05:36] LABS: MEAN CORPUSCULAR HEMOGLOBIN 31.6 pg (27.0-33.0); MEAN CORPUSCULAR VOLUME 95.8 fl (80.0-96.0); RED CELL DISTRIBUTION WIDTH 14.3 % (11.5-14.5); WHITE BLOOD COUNT 6.2 K/mm3 (4.0-10.0)
[2016-11-27] MEDS: APIXABAN 5 MG TAB (ELIQUIS) PO SCH ×2 (05:48→17:29)
[2016-11-27] MEDS: **hydrALAZINE** 50 MG TAB PO SCH ×3 (05:48→21:58)
[2016-11-27] MEDS: SLF 3 ML SYR IV SCH ×3 (05:49→21:58)
[2016-11-27 06:31] LABS: ANION GAP 10 MEQ/L (8-16); BLOOD UREA NITROGEN 18 MG/DL (7-18); CALCIUM LEVEL 9.3 MG/DL (8.8-10.2); CARBON DIOXIDE LEVEL 25 MEQ/L (21-32); CHLORIDE LEVEL 105 MEQ/L (98-107); CREATININE FOR GFR 1.05 MG/DL (0.70-1.30); GLOMERULAR FILTRATION RATE > 60.0 (>49); GLUCOSE, FASTING 123 MG/DL (80-110); MAGNESIUM LEVEL 1.7 MG/DL (1.8-2.4); POTASSIUM SERUM 3.9 MEQ/L (3.5-5.1); SODIUM LEVEL 140 MEQ/L (136-145)
[2016-11-27] MEDS: HumaLOG INSULIN (NovoLOG) PER UNIT SC SCH ×4 (07:45→21:23)
[2016-11-27] MEDS: PERCOCET 5MG/325MG TAB PO PRN ×3 (07:45→22:01)
[2016-11-27] MEDS ORDERED: MAG SULF 1GM/100ML (MAG RUN) 1 GM in APPROPRIATE DILUENT 1 EA IV ONE (08:00)
[2016-11-27] MEDS: COMBIGAN EYE DROPS (PATIENT'S OWN MED) OS SCH ×2 (08:32→20:20)
[2016-11-27] MEDS: PANTOPRAZOLE 40MG TAB (PROTONIX) PO SCH (08:33)
[2016-11-27] MEDS: MIRALAX *UNIT DOSE* 17GM PACKET PO SCH (08:33)
[2016-11-27] MEDS: DULoxetine 30 MG CAP (CYMBALTA) PO SCH (08:33)
[2016-11-27] MEDS: METOPROLOL SUCC *XL* 25MG TAB (TopROL *XL*) PO SCH (08:33)
[2016-11-27] MEDS: GABAPENTIN 300 MG CAP PO SCH ×2 (08:33→20:13)
[2016-11-27] MEDS: amLODIPine 5 MG TAB PO SCH (08:34)
[2016-11-27] MEDS: SENOKOT S TAB PO SCH ×2 (08:34→20:12)
[2016-11-27] MEDS: MORPHINE 2 MG/ML 1ML SYRINGE IV PRN ×2 (10:08→20:13)
--- NOTE | 2016-11-27 14:53 | IPNPDOC ---
Text Note Date of Service The patient was seen on 11/27/16. NOTE Subjective: Patient is a 71 year old male with a PMHx of HTN, DLP, PVD s/p Multiple stents (on Coumadin), NIDDM2, AAA s/p repair, CKD3 who presented to the ER after he had fallen at home and had severe left ankle pain. Upon arrival to the ER he was found to have a fracture of his left ankle. Patient noted that he had some dizziness and had fallen. Patient was admitted for a left ankle fracture, possible syncope and vascular evaluation. Patient was seen and examined at the bedside. Currently he does not report any problems. Objective: Vitals (See below) General: Lying in bed, no acute distress, comfortable, AAOx3 HEENT: NC, AT CVS: RRR, +S1S2 Lungs: Fair air entry b/l, -w/r/r Abdomen: Soft, ND, NT, +BSx4 Extremities: - Edema, - Calf tenderness Assessment and plan: 1. Left ankle fracture - s/p Left ankle ORIF - POD#4 - Continues with physical therapy - Pain control as per orthopedic surgery - Orthopedic surgery following; appreciate their input 2. Peripheral vascular disease - s/p multiple stent placement - History of multiple stents in past - History of stent occlusion in past - Has been on Coumadin as an oupatient - s/p Heparin drip - Eliquis started - Will restart Plavix - Dr. Mclain (Vascular Surgery) following; appreciate their input 3. Possible syncope - possibly 2/2 orthostatic hypotension - likely 2/2 medications - No other syncopal episodes - Orthostatic vital signs negative - Effexor has been discontinued - c/w Telemetry monitoring - c/w Physical therapy 4. s/p APRIL - likely 2/2 pre-renal etiology 5. HTN - c/w Hydralazine, Metoprolol and Amlodipine, 6. DLP - c/w Atorvastatin 7. NIDDM2 - c/w ISS 8. AAA - s/p surgical repair 9. Chronic back pain - c/w fentanyl patch and gabapentin 10. Anxiety / Depression - s/p Venlafaxine - c/w Duloxetine 11. s/p Lactic acidosis 12. GERD - c/w Protonix 13. DVT prophylaxis - c/w full anticoagulation with Eliquis VS,Fishbone, I+O VS, Fishbone, I+O Laboratory Tests 11/27/16 05:13 Red Blood Count 3.42 L, Mean Corpuscular Volume 95.8, Mean Corpuscular Hemoglobin 31.6, Mean Corpuscular Hemoglobin Concent 33.0, Red Cell Distribution Width 14.3, Calcium Level 9.3 Vital Signs Date Time Temp Pulse Resp B/P (MAP) Pulse Ox O2 Delivery O2 Flow Rate FiO2 11/27/16 12:00 97.7 88 18 148/82 (104) 96 Room Air 11/25/16 09:33 2.0 I&O- Last 24 Hours up to 6 AM 11/27/16 05:59 Intake Total 1556 ml Output Total 2100 ml Balance -544 ml BRIDGER EDWARDS MD Nov 27, 2016 14:53
[2016-11-27] MEDS ORDERED: CLOPIDOGREL 75 MG TAB PO ONE (15:00)
[2016-11-27] MEDS: NIACIN SR (NIASPAN) 500 MG TAB PO SCH (20:12)
[2016-11-27] MEDS: FENOFIBRATE 145 MG TAB (TRICOR) PO SCH (20:12)
[2016-11-27] MEDS: ATORVASTATIN 20 MG TAB PO SCH (20:12)
[2016-11-28] VITALS (14 sets, daily range): BP systolic 137–163; BP diastolic 71–87; O2SAT 93–98
[2016-11-28] MEDS: LUMIGAN EYE DROPS (PATIENT'S OWN MED) OU SCH (00:22)
[2016-11-28] MEDS: APIXABAN 5 MG TAB (ELIQUIS) PO SCH (05:25)
[2016-11-28] MEDS: **hydrALAZINE** 50 MG TAB PO SCH (05:31)
[2016-11-28] MEDS: SLF 3 ML SYR IV SCH (05:33)
[2016-11-28] MEDS ORDERED: MAG SULF 1GM/100ML (MAG RUN) 1 GM in APPROPRIATE DILUENT 1 EA IV ONE (07:30)
[2016-11-28] MEDS: HumaLOG INSULIN (NovoLOG) PER UNIT SC SCH ×2 (08:03→13:04)
[2016-11-28] MEDS: PERCOCET 5MG/325MG TAB PO PRN (08:06)
[2016-11-28] MEDS: PANTOPRAZOLE 40MG TAB (PROTONIX) PO SCH (09:27)
[2016-11-28] MEDS: METOPROLOL SUCC *XL* 25MG TAB (TopROL *XL*) PO SCH (09:27)
[2016-11-28] MEDS: GABAPENTIN 300 MG CAP PO SCH (09:28)
[2016-11-28] MEDS: amLODIPine 5 MG TAB PO SCH (09:28)
[2016-11-28] MEDS: MIRALAX *UNIT DOSE* 17GM PACKET PO SCH (09:29)
[2016-11-28] MEDS: DULoxetine 30 MG CAP (CYMBALTA) PO SCH (09:29)
[2016-11-28] MEDS: SENOKOT S TAB PO SCH (09:29)
[2016-11-28 10:02] LABS: MEAN CORPUSCULAR HEMOGLOBIN 31.2 pg (27.0-33.0); MEAN CORPUSCULAR HGB CONC 33.2 g/dl (32.0-36.5); MEAN CORPUSCULAR VOLUME 94.1 fl (80.0-96.0); RED CELL DISTRIBUTION WIDTH 14.4 % (11.5-14.5); WHITE BLOOD COUNT 5.7 K/mm3 (4.0-10.0)
[2016-11-28 10:23] LABS: ALBUMIN 2.8 GM/DL (3.2-5.2); ALBUMIN/GLOBULIN RATIO 0.78 (1.00-1.93); ALKALINE PHOSPHATASE 49 U/L (45-117); ALT/SGPT 44 U/L (12-78); ANION GAP 12 MEQ/L (8-16); AST/SGOT 49 U/L (15-37); BILIRUBIN,TOTAL 0.3 MG/DL (0.2-1.0); BLOOD UREA NITROGEN 17 MG/DL (7-18); CALCIUM LEVEL 9.2 MG/DL (8.8-10.2); CARBON DIOXIDE LEVEL 23 MEQ/L (21-32); CHLORIDE LEVEL 103 MEQ/L (98-107); CREATININE FOR GFR 1.11 MG/DL (0.70-1.30); GLOMERULAR FILTRATION RATE > 60.0 (>49); GLUCOSE, FASTING 153 MG/DL (80-110); MAGNESIUM LEVEL 1.8 MG/DL (1.8-2.4); POTASSIUM SERUM 4.1 MEQ/L (3.5-5.1); SODIUM LEVEL 138 MEQ/L (136-145); TOTAL PROTEIN 6.4 GM/DL (6.4-8.2)
[2016-11-28] MEDS ORDERED: ELIQ5TAB PO (10:35)
[2016-11-28] MEDS ORDERED: DULO30CA PO (10:35)
[2016-11-28] MEDS ORDERED: PANT40TA2 PO (10:35)
[2016-11-28] MEDS ORDERED: HYDR50TA PO (10:35)
[2016-11-28] MEDS ORDERED: AMLO5TAB2 PO (10:35)
[2016-11-28] MEDS: COMBIGAN EYE DROPS (PATIENT'S OWN MED) OS SCH (10:56)
--- NOTE | 2016-11-28 18:10 | DSES ---
DATE OF ADMISSION: 11/19/2016 DATE OF DISCHARGE: 11/28/2016 ATTENDING PHYSICIAN: Dr. Anne Sanchez and Dr. Benedicto Arana PRIMARY CARE PROVIDER: Dr. John Batista CONSULTING PHYSICIANS: Dr. Mclain and Dr. Saavedra CONDITION ON DISCHARGE: Stable. FINAL DIAGNOSIS: Left ankle fracture status post left ankle open reduction and internal fixation. PROCEDURES: Open reduction and internal fixation of left ankle fracture. HISTORY OF PRESENT ILLNESS: The patient is a 70-year-old male with a past medical history of hypertension, dyslipidemia, peripheral vascular disease status post multiple stents on Coumadin, [id number] diabetes mellitus type 2, abdominal aortic aneurysm status post repair, chronic kidney disease (CKD) stage III who presented to the emergency room (ER) after he had fallen at home and had severe left ankle pain. Upon arrival to the ER, he was found to have a fracture of his left ankle. The patient noted that he had some dizziness and had fallen. The patient was admitted for a left ankle fracture, possible syncope and vascular evaluation. HOSPITAL COURSE: 1. Left ankle fracture, status post left ankle open reduction and internal fixation. He continues with physical therapy. Pain control as per orthopedic surgery. Orthopedic surgery has been following. We appreciate their input. The patient has been transitioned to physical medicine and rehabilitation for continued physical therapy. 2. Peripheral vascular disease, status post multiple stent placement, history of multiple stents in the past, history of stent occlusion in the past. He has been on Coumadin as an outpatient. Status post heparin drip, Eliquis has been started and Plavix has been restarted as well. Dr. Mclain, vascular surgery, has been consulted. We appreciate their input. 3. Possible syncope, possibly secondary to orthostatic hypotension, likely secondary to medications. No other syncopal episodes have been noted throughout the hospital course. Orthostatic vital signs have remained negative after medications have been changed. Effexor has been discontinued and has been transitioned to Cymbalta. Telemetry monitoring has been continued throughout hospital course. 4. Status post acute kidney injury, likely secondary to prerenal etiology. 5. Hypertension. Continue with hydralazine, metoprolol, and amlodipine. 6. Dyslipidemia. Continue with atorvastatin. 7. Kfa-vfzalzl-tzbvncdex diabetes mellitus, type 2. Continue with insulin sliding scale. 8. Abnormal aortic aneurysm, status post surgical repair. 9. Chronic back pain. Continue with fentanyl patch and gabapentin. 10. Anxiety and depression, status post venlafaxine. Continue with duloxetine. 11. Status post lactic acidosis. 12. Gastroesophageal reflux disease (GERD). Continue with Protonix. 13. Deep vein thrombosis (DVT) prophylaxis. He has been put on Eliquis for full anticoagulation. DISCHARGE MEDICATIONS: The patient has been discharged home with the following medication list: - amlodipine 5 mg by mouth daily - Eliquis 5 mg by mouth twice a day - duloxetine 60 mg by mouth daily - hydralazine 50 mg by mouth every eight hours - Protonix 40 mg by mouth daily - Whick 10/325 one tablet by mouth four times a day as needed for pain - atorvastatin 20 mg by mouth at bedtime - baclofen 10 mg by mouth twice a day - Lumigan one drop in each eye at bedtime - Plavix 75 mg by mouth at bedtime - Combigan one drop in each eye twice a day - famotidine 40 mg by mouth daily - fenofibrate 145 mg by mouth at bedtime - fentanyl 50 mcg transdermally every 72 hours - fish oil three capsules by mouth twice a day - gabapentin 800 mg by mouth twice a day - magnesium oxide 400 mg by mouth twice a day - metoprolol succinate 75 mg by mouth daily - niacin extended release 2000 mg by mouth at bedtime - sitagliptin 100 mg by mouth daily - vitamin D 1000 units by mouth daily Stopped medications include: - hydralazine 25 mg by mouth three times a day - prednisone - venlafaxine - warfarin DISCHARGE INSTRUCTIONS: The patient has been advised to followup with his primary care provider, vascular surgery, and orthopedic surgery within the next seven days. He has been advised to remain compliant with treatment plan and medications and return to the emergency room if he experiences any problems. TIME SPENT ON DISCHARGE: Greater than 35 minutes.
== END 2016-11-28 14:00 | DRG 493 ==
LOC: EDBD 18:05 → M ED 18:05 → M ED INP 21:24 → M PCU 22:59
PROVIDERS: ADMIT Hospitalist; ATTEND Internal Medicine
PROC: 0QSK04Z Reposition Left Fibula with Internal Fixation Device, Open Approach (ICD-10-PCS; principal; 2016-11-23 07:54)
DX: S82.845A Nondisplaced bimalleolar fracture of left lower leg, initial encounter for closed fracture (principal); N17.9 Acute kidney failure, unspecified; E87.2 Acidosis; R55 Syncope and collapse; I12.9 Hypertensive chronic kidney disease with stage 1 through stage 4 chronic kidney disease, or unspecified chronic kidney disease; I73.9 Peripheral vascular disease, unspecified; E11.9 Type 2 diabetes mellitus without complications; E78.5 Hyperlipidemia, unspecified; N18.3 Chronic kidney disease, stage 3 (moderate); Z79.01 Long term (current) use of anticoagulants; Z79.82 Long term (current) use of aspirin; Z79.899 Other long term (current) drug therapy; Z87.891 Personal history of nicotine dependence; G89.29 Other chronic pain; E87.5 Hyperkalemia; I71.4 Abdominal aortic aneurysm, without rupture; F32.9 Major depressive disorder, single episode, unspecified; F41.9 Anxiety disorder, unspecified; W18.30XA Fall on same level, unspecified, initial encounter; Y92.009 Unspecified place in unspecified non-institutional (private) residence as the place of occurrence of the external cause; E83.42 Hypomagnesemia; K21.9 Gastro-esophageal reflux disease without esophagitis

== ENCOUNTER 2016-11-28 11:21 | Inpatient (IN) | payer OTHER ==
[~2016-11-28] VITALS: Ht 182.9 cm; Wt 119.8 kg
[~2016-11-28 11:21] MED LIST changes: +AMLO5TAB2 PO; +ASPI81TA85 PO; +ATOR1TAB21 PO; +BACL10TA2 PO; +BIMA01SOL OU; +COMB0.2S OS; +COUM1TAB17 PO; +COUM2.5T17 PO; +DULO30CA PO; +ELIQ5TAB PO; +FAMO40TA3 PO; +FENO145T PO; +FENT50PA TD; +FISH7.5C PO; +GABA-282 PO; +GABA600T PO; +HYDR12.55 PO; +HYDR25TA PO; +HYDR50TA PO; +JANU100T PO; +MAGN400T5 PO; +METO1TAB7 PO; +NIAC1TAB5 PO; +NORC10TA21 PO; +PANT40TA2 PO; +PLAV1TAB2 PO; +PRED10TA2 PO; +VENL150C43 PO; +VITA100054 PO; +VITMTA PO
[2016-11-28] MEDS ORDERED: MIRALAX *UNIT DOSE* 17GM PACKET PO PRN (13:00)
[2016-11-28] MEDS ORDERED: GLUCOSE 4 GM CHEW TABLET PO PRN (13:15)
[2016-11-28] MEDS ORDERED: DEXTROSE 50% 50 ML SYRINGE IV PRN (13:15)
[2016-11-28] MEDS ORDERED: GLUCAGON FOR INJ 1 MG VIAL (J1610) SC PRN (13:15)
[2016-11-28 14:00] VITALS: BP 140/72
[2016-11-28] MEDS ORDERED: FENTANYL REMOVAL DOCUMENTATION MISC XX SCH (14:30)
[2016-11-28 16:56] VITALS: BP 131/63
[2016-11-28] MEDS: PERCOCET 5MG/325MG TAB PO PRN ×2 (16:57→21:29)
[2016-11-28] MEDS: GABAPENTIN 400 MG CAP PO SCH ×2 (16:57→20:13)
[2016-11-28] MEDS: HumaLOG INSULIN (NovoLOG) PER UNIT SC SCH ×2 (16:58→20:04)
[2016-11-28] MEDS: **hydrALAZINE** 50 MG TAB PO SCH ×2 (16:58→21:28)
[2016-11-28 19:44] VITALS: BP 146/70
[2016-11-28] MEDS: NIACIN SR (NIASPAN) 500 MG TAB PO SCH (20:12)
[2016-11-28] MEDS: FENOFIBRATE 145 MG TAB (TRICOR) PO SCH (20:13)
[2016-11-28] MEDS: APIXABAN 5 MG TAB (ELIQUIS) PO SCH (20:13)
[2016-11-28] MEDS: COMBIGAN EYE DROPS (PATIENT'S OWN MED) OS SCH (20:13)
[2016-11-28] MEDS: ATORVASTATIN 20 MG TAB PO SCH (20:13)
[2016-11-28] MEDS: SENOKOT S TAB PO SCH (20:13)
[2016-11-28] MEDS: LUMIGAN EYE DROPS (PATIENT'S OWN MED) OU SCH (20:14)
--- NOTE | 2016-11-28 20:20 | PMRNOTEPD ---
PMR Note 71-year-old white male with syncopal episode causing fall with spiral fracture of the distal left fibula with delayed surgery due to anticoagulation management for extensive peripheral vascular disease. Patient also with hypertension hyperlipidemia type 2 diabetes with acute on chronic renal disease and chronic back pain. This right-handed gentleman needs to improve his overall conditioning and learn adaptive mobilities ADLs and transfers to facilitate return home with his . History and physical job number is [id number]. BRIDGER GARCÍA MD Nov 28, 2016 20:20
[2016-11-28] MEDS ORDERED: NON-FORMULARY 1 EA EA OS SCH (21:00)
[2016-11-28] MEDS ORDERED: NON-FORMULARY 1 EA EA OU SCH (21:00)
[2016-11-29 06:00] VITALS: BP 161/73
[2016-11-29] MEDS: **hydrALAZINE** 50 MG TAB PO SCH ×3 (06:00→22:23)
[2016-11-29] MEDS: PERCOCET 5MG/325MG TAB PO PRN ×3 (06:02→18:20)
--- NOTE | 2016-11-29 06:37 | PMRHPE ---
DATE OF ADMISSION: 11/28/2016 REASON FOR ADMISSION: Rehabilitation of left ankle fracture, complicated by peripheral vascular disease including abdominal aortic aneurysm, bilateral lower extremity bypass surgery, chronic pain syndrome, diabetes mellitus, also hypertension and hyperlipidemia contributing to peripheral vascular disease, and a syncopal episode of unknown origin. HISTORY OF PRESENT ILLNESS: The patient is a 71-year-old right handed white male who was living with multiple medical problems noted above related to atherosclerotic cardiovascular disease, principally peripheral vascular disease, when he had a syncopal episode which caused him to fall down, severely twisting his ankle and resulting in a spiral fracture of the left fibula distally on 11/19/2016. The patient was brought to [facility] and evaluated and as he was on aspirin, Plavix and Coumadin, he was not able to have the open reduction, internal fixation until these had declined and the patient had normal coagulability. At that time, his Dr. Rufino Tavarez performed a left ankle fibula open reduction, internal fixation with syndesmosis fixation for unstable bimalleolar fracture. The patient was then started on physical and occupational evaluation and therapy, along with being evaluated by medicine service for his multiple medical problems including type diabetes mellitus with chronic kidney disease stage III, also peripheral vascular disease with multiple stents, hypertension, hyperlipidemia, chronic pain. The patient was felt by medicine service to have had a hypotensive episode which caused his syncope and fall. Additional diagnoses include anxiety, depression, lactic acidosis, gastroesophageal reflux disease (GERD), deep venous thrombosis (DVT) prophylaxis for which he has been started on Eliquis, and Coumadin and Plavix have been discontinued, and acute kidney injury on top of his chronic kidney disease. The patient was assessed today by the acute rehabilitation unit and felt to be appropriate for acute intensive musculoskeletal rehabilitation with transfer to the acute rehab unit. PAST MEDICAL HISTORY: 1. Atherosclerotic cardiovascular disease including hypertension, hyperlipidemia , peripheral vascular disease with multiple stents and abdominal aortic aneurysm status post surgical repair, and bilateral lower extremity bypass surgeries. 2. Chronic low back, shoulder and lower extremity pain for which the patient is on fentanyl and gabapentin. 3. Type 2 diabetes mellitus with acute on chronic kidney disease at this time. 4. The patient is also status post appendectomy, cholecystectomy, and multiple surgeries for bowel obstruction. ALLERGIES: The patient has no known drug allergies. FAMILY HISTORY: Surprisingly negative for peripheral vascular and atherosclerotic cardiovascular disease. SOCIAL HISTORY: The patient is an ex smoker with no history of alcohol abuse and no history of illicit drugs, who lives at home with his , and he reports himself to be DO NOT RESUSCITATE when examined and questioned today per history. MEDICATIONS ON ADMISSION: - amlodipine 5 mg daily - Eliquis 5 mg twice a day - atorvastatin 20 mg at bedtime - Senokot-S one tablet twice a day - Cymbalta 60 mg daily - fenofibrate 145 mg at bedtime - fentanyl 50 mcg patch, changing every 72 hours - gabapentin changing from 1800 mg twice a day to 1200 mg three times a day - hydralazine hydrochloride 50 mg at bedtime - insulin sliding scale with before meals and bedtime checks - metoprolol succinate 75 mg daily - niacin sustained release 2000 mg at bedtime - Percocet 5/325 one tablet for moderate pain, two tablets for severe pain every four hours - pantoprazole 40 mg daily - Lumigan one drop each eye at bedtime - Combigan one drop left eye twice a day - MiraLAX one packet daily as needed for constipation REVIEW OF SYSTEMS: Is notable for left ankle pain, chronic back and shoulder pain. Otherwise, negative on 12-point scale. PHYSICAL EXAMINATION: The patient is a tall, overweight, late middle-aged white male who looks approximately stated age of 71. He is right-hand dominant and appears to be in mild musculoskeletal distress between his back and his left ankle, which is in a plastered splint and is non-weightbearing in that splint. He is 119.8 kg. VITAL SIGNS: Temperature is 99.3, blood pressure 146/70, pulse 79, respirations 18, and pulse oximetry is 97% on room air. HEENT: Normocephalic, atraumatic. Patient with multifocal glasses, at least bifocal. Has extraocular motion intact, and pupils equal, round, and reactive to light and accommodation. Oropharynx without lesion. Tongue is midline. Nasal passages are not obstructed and septum is midline. Hearing is within normal limits for age. Otherwise the patient is normocephalic. NECK: Supple, nontender. LUNGS: Clear in all hollis to auscultation. CORONARY: Shows regular rate and rhythm with normal S1, S2. 2/4 bilateral radial pulses. No murmurs, rubs, or gallops were appreciated on auscultation. ABDOMEN: Obese, with bowel sounds present in all quadrants and nontender. No palpable masses or tenderness was found. EXTREMITIES: Functional range of motion of the bilateral upper and right lower extremity with functional range of motion of the left hip and knee, but the patient is unable to move ankle in splint; however, has normal color and warmth and ability to wiggle toes without problem on the left foot. Calves look to be intact with no drainage. NEUROLOGIC: The patient is alert and oriented times four. Speech is clear, coherent and appropriate. Affect is pleasant and cooperative. Memory is intact. Mood is good. Motor shows functional strength in bilateral upper and right lower extremity and left hip and knee, though some guarding of the left lower extremity, and some arthralgic movements regarding back with other movement. Light touch is intact in bilateral upper and lower extremities. Vibration is intact to bilaterally upper and lower extremities. LABORATORY DATA: Shows patient with mild anemia, hemoglobin of 11.4, hematocrit of 34.4. Elevated fasting blood sugar this morning today being 153, but otherwise normal electrolytes, and renal function has improved so that BUN is 17 and creatinine is 1.11. Coagulation shows elevation of aPPT at 77.9. Urine tonight was within normal limits, and premeal blood sugar this evening was 137. IMAGING: Postoperative x-ray of the ankle showed good alignment of the talus and a good fixation with the plate. ASSESSMENT AND PLAN: 1. Rehabilitation on complicated left ankle fracture where patient is not able to weightbear in spite of open reduction, internal fixation which has recreated good anatomical alignment. The patient needs to become independent to modified independent and adaptive mobility and activities of daily living (ADLs) to return home. He does need to be able to get past the approximately four steps into the house, and then will be able to function on the first floor of the home. He will need to require probable 150 feet of modified ambulation, be it wheelchair, but more likely front-wheel walker or crutch walking to achieve mobility and to learn the transfers and ADLs techniques for this. At this time, I anticipate the patient will require about 14-17 days, though it is possible the patient may do better than that. 2. Atherosclerotic cardiovascular disease. Will need to continue management of hypertension and hyperlipidemia with medications noted above, including the atorvastatin, fenofibrate for lipids, and metoprolol, amlodipine, and hydralazine for blood pressure control. The patient does require a fair amount of medication for this, and we will continue to watch, but more importantly is the patient's extensive peripheral vascular disease which needs to have ongoing anticoagulation management, which now the eKlliequis will be providing along with thromboembolism deterrent hose to the right lower extremity to assist also in deep venous thrombosis (DVT) prophylaxis, but also to keep stents open. 3. Diabetes mellitus with acute on chronic kidney disease. We will continue to follow these. Consultation on medicine service to assist with this. Overall, the patient will participate in an acute intensive rehab program with three hours of physical and occupational therapy today, being followed by rehabilitation nursing, physiatry. Also orthopedics has been consulted to assist with monitoring the patient especially the surgical site and DVT prophylaxis, as well as the medicine economic consultant participation for the problems noted above. POST-ADMISSION PHYSICIAN EVALUATION: The patient is consistent with the preadmission screening and status. The patient does have a significantly complicated history in general for a patient with bimalleolar compromised fracture of the left ankle, as his chronic pain problems as well as his peripheral vascular disease limit his ability to make what is normally an easy transition to crutches. However, we will go ahead and try and work that. Consider other management for pain such as TENS unit, a swell as trying to continuing to improve the patient's overall conditioning and upper extremity strength to facilitate his return to home with his , with supervision or modified independence in ADLs and mobility. I do anticipate the patient will be able to return to home with his . His prognosis I feel is good. Estimated length of stay is 14-17 days. Time spent on chart review, history and physical and documentation is greater than 70 minutes. LYNDAD
[2016-11-29 06:45] VITALS: BP 141/85
[2016-11-29 06:47] LABS: BASO % 0.7 % (0.0-1.0); EOS # 0.1 K/mm3 (0.0-0.50); EOS % 1.7 % (0.0-3.0); LARGE UNSTAINED CELL # 0.2 K/mm3 (0.0-0.4); LARGE UNSTAINED CELL % 2.6 % (0.0-4.0); LYMPH # 1.5 K/mm3 (1.5-4.5); MEAN CORPUSCULAR HEMOGLOBIN 31.6 pg (27.0-33.0); MEAN CORPUSCULAR HGB CONC 33.3 g/dl (32.0-36.5); MEAN CORPUSCULAR VOLUME 94.7 fl (80.0-96.0); MONO # 0.5 K/mm3 (0.0-0.8); MONO % 9.5 % (0.0-5.0); NEUTROPHILS # 3.6 K/mm3 (1.8-7.7); NEUTROPHILS % 62.4 % (36.0-66.0); PLATELET COUNT, AUTOMATED 443 k/mm3 (150-450); RED CELL DISTRIBUTION WIDTH 14.5 % (11.5-14.5); WHITE BLOOD COUNT 5.8 K/mm3 (4.0-10.0)
[2016-11-29 07:03] LABS: ALBUMIN 2.9 GM/DL (3.2-5.2); ALBUMIN/GLOBULIN RATIO 0.67 (1.00-1.93); ALKALINE PHOSPHATASE 51 U/L (45-117); ALT/SGPT 43 U/L (12-78); ANION GAP 11 MEQ/L (8-16); AST/SGOT 51 U/L (15-37); BILIRUBIN,TOTAL 0.4 MG/DL (0.2-1.0); BLOOD UREA NITROGEN 20 MG/DL (7-18); CALCIUM LEVEL 9.8 MG/DL (8.8-10.2); CARBON DIOXIDE LEVEL 24 MEQ/L (21-32); CHLORIDE LEVEL 106 MEQ/L (98-107); CREATININE FOR GFR 1.25 MG/DL (0.70-1.30); GLOMERULAR FILTRATION RATE > 60.0 (>49); GLUCOSE, FASTING 149 MG/DL (80-110); POTASSIUM SERUM 4.5 MEQ/L (3.5-5.1); SODIUM LEVEL 141 MEQ/L (136-145); TOTAL PROTEIN 7.2 GM/DL (6.4-8.2)
[2016-11-29] MEDS: APIXABAN 5 MG TAB (ELIQUIS) PO SCH ×2 (07:49→20:41)
[2016-11-29] MEDS: DULoxetine 30 MG CAP (CYMBALTA) PO SCH (07:49)
[2016-11-29] MEDS: HumaLOG INSULIN (NovoLOG) PER UNIT SC SCH ×4 (07:49→20:43)
[2016-11-29] MEDS: GABAPENTIN 400 MG CAP PO SCH ×3 (07:49→20:40)
[2016-11-29] MEDS: PANTOPRAZOLE 40MG TAB (PROTONIX) PO SCH (07:49)
[2016-11-29] MEDS: amLODIPine 5 MG TAB PO SCH (07:50)
[2016-11-29] MEDS: METOPROLOL SUCC *XL* 25MG TAB (TopROL *XL*) PO SCH (07:50)
[2016-11-29] MEDS: SENOKOT S TAB PO SCH ×2 (07:50→20:41)
[2016-11-29] MEDS: COMBIGAN EYE DROPS (PATIENT'S OWN MED) OS SCH ×2 (07:51→20:42)
--- NOTE | 2016-11-29 11:20 | IPNPDOC ---
Water Resources Engineer Progress Note DATE OF SERVICE: 11/29/16 DATE OF ADMISSION: Nov 28, 2016 at 14:10 INPATIENT REHABILITATION ADMISSION DAY: #2 SUBJECTIVE: Patient is a 71-year-old white male with syncopal episode causing fall with spiral fracture of the distal left fibula with delayed surgery due to anticoagulation management for extensive peripheral vascular disease. Patient also with hypertension hyperlipidemia type 2 diabetes with acute on chronic renal disease and chronic back pain. This right-handed gentleman needs to improve his overall conditioning and learn adaptive mobilities ADLs and transfers to facilitate return home with his . Patient seen in his room this morning, and notes some of his chronic back pain and aching in the left ankle. No other complaints today. ALLERGIES: See Below MEDICATIONS: Reviewed, see below. OBJECTIVE: VITAL SIGNS: Please see below. PHYSICAL EXAMINATION: GENERAL: Tall muscular but overweight late middle-age white male who looks approximately stated age and is in mild muscle skeletal distress with a plaster splint on his left foot and ankle. HEENT: Normocephalic/atraumatic. CARDIOVASCULAR: Irregularly irregular rate and rhythm. 2/4 bilateral radial pulses with good perfusion to nails. LUNGS: All hollis clear to auscultation. ABDOMEN: Obese, nontender, with normal bowel sounds in all quadrants. NEUROLOGICAL: Patient is alert and oriented 4. Speech is clear, coherent and appropriate. Affect is pleasant and cooperative with just the slightest amount of flattening. Memory is intact. Bilateral upper extremities and right lower extremity functionally intact for sensory motor. Sensorium intact and left lower extremity with a little bit guarding of the foot and ankle. SKIN: Grossly intact. LABORATORY DATA: Reviewed. Please see below. MICROBIOLOGY: Please see below. IMAGING: No new imaging. DVT prophylaxis ordered?: SHWETA rome and Eliquis 5mg bid. ASSESSMENT AND PLAN: 1. Rehabilitation of left ankle fracture with open reduction internal fixation: Patient challenged by peripheral vascular disease and chronic back pain is starring in program of physical and occupational therapy to learn Adaptive mobility and ADLs. I will reassess estimated length of stay based on patient performance in physical and occupational therapy today. Currently looking at 14-17 days for patient to line appropriate adaption return home with . 2. Atrial fibrillation: Patient continues in this arrhythmia that maintaining good blood pressure and overall appears to be good perfusion though he does have extensive peripheral vascular disease. We will continue to monitor his cardiovascular function and the potential impact on skin while patient is less mobile. 3. Type 2 diabetes mellitus: Fasting blood sugar 149 this morning. Renal function appears to be good on CMP with BUN of 20 and creatinine 1.25. 4. Anemia: Very mild at this point with hemoglobin and hematocrit 12.3 and 36.8% . TIME SPENT: Chart Review, examination and documentation require greater than 25 minutes. Allergies Coded Allergies: No Known Allergies (Verified , 07/02/04) Vital Signs Vital Signs Date Time Temp Pulse Resp B/P (MAP) Pulse Ox O2 Delivery O2 Flow Rate FiO2 11/29/16 07:50 104 143/69 11/29/16 07:50 Room Air 11/29/16 06:32 18 11/29/16 06:00 98.9 97 Laboratory Data CBC/BMP Laboratory Tests 11/29/16 06:18 Red Blood Count 3.89 L, Mean Corpuscular Volume 94.7, Mean Corpuscular Hemoglobin 31.6, Mean Corpuscular Hemoglobin Concent 33.3, Red Cell Distribution Width 14.5, Neutrophils (%) (Auto) 62.4, Lymphocytes (%) (Auto) 23.0 L, Monocytes (%) (Auto) 9.5 H, Eosinophils (%) (Auto) 1.7, Basophils (%) ( Auto) 0.7, Neutrophils # (Auto) 3.6, Lymphocytes # (Auto) 1.5, Monocytes # (Auto ) 0.5, Eosinophils # (Auto) 0.1, Basophils # (Auto) 0.0, Calcium Level 9.8, Aspartate Amino Transf (AST/SGOT) 51 H, Alanine Aminotransferase (ALT/SGPT) 43, Alkaline Phosphatase 51, Total Bilirubin 0.4, Total Protein 7.2, Albumin 2.9 L Labs 24H Laboratory Tests 2 11/28/16 16:31: Bedside Glucose (Misc Panel) 137H 11/28/16 17:22: Urine Appearance CLEAR, Urine Color YELLOW, Urine pH 6.0, Urine Specific [place] 1.011, Urine Protein NEGATIVE, Urine Glucose (UA) NEGATIVE, Urine Ketones NEGATIVE, Urine Urobilinogen 0.2, Urine Bilirubin NEGATIVE, Urine Leukocyte Esterase NEGATIVE, Urine Blood NEGATIVE, Urine Nitrite NEGATIVE, Urine WBC (Auto) 0, Urine RBC (Auto) 2, Urine Hyaline Casts (Auto) 0, Urine Bacteria (Auto) NEGATIVE, Urine Squamous Epithelial Cells 0, Urine Mucus (Auto) SMALL, Urine Sperm (Auto) 11/28/16 20:01: Bedside Glucose (Misc Panel) 140H 11/29/16 06:18: White Blood Count 5.8, Red Blood Count 3.89L, Hemoglobin 12.3L, Hematocrit 36.8L , Mean Corpuscular Volume 94.7, Mean Corpuscular Hemoglobin 31.6, Mean Corpuscular Hemoglobin Concent 33.3, Red Cell Distribution Width 14.5, Platelet Count 443, Neutrophils (%) (Auto) 62.4, Lymphocytes (%) (Auto) 23.0L, Monocytes (%) (Auto) 9.5H, Eosinophils (%) (Auto) 1.7, Basophils (%) (Auto) 0.7, Neutrophils # (Auto) 3.6, Lymphocytes # (Auto) 1.5, Monocytes # (Auto) 0.5, Eosinophils # (Auto) 0.1, Basophils # (Auto) 0.0, Large Unclassified Cells % 2.6 , Large Unclassified Cells # 0.2, Anion Gap 11, Glomerular Filtration Rate > 60.0, Blood Urea Nitrogen 20H, Creatinine 1.25, Sodium Level 141, Potassium Level 4.5, Chloride Level 106, Carbon Dioxide Level 24, Calcium Level 9.8, Aspartate Amino Transf (AST/SGOT) 51H, Alanine Aminotransferase (ALT/SGPT) 43, Alkaline Phosphatase 51, Total Bilirubin 0.4, Total Protein 7.2, Albumin 2.9L, Albumin/Globulin Ratio 0.67L Current Medications Current Medications Current Medications Amlodipine Besylate (Norvasc) 5 mg DAILY PO Last administered on 11/29/16 07:50 ; Start 11/29/16 at 09:00; Stop 12/29/16 at 08:59 Apixaban (Eliquis) 5 mg BID PO Last administered on 11/29/16 07:49; Start at 21:00; Stop 12/05/16 at 20:59 Atorvastatin Calcium (Lipitor) 20 mg QHS PO Last administered on 11/28/16 20:13 ; Start 11/28/16 at 21:00; Stop 12/28/16 at 20:59 Dextrose (Dextrose 50%) 25 ml ASDIRECTED PRN IV SEE LABEL COMMENTS; Start at 13:15; Stop 12/28/16 at 13:14 Duloxetine HCl (Cymbalta) 60 mg DAILY PO Last administered on 11/29/16 07:49; Start 11/29/16 at 09:00; Stop 12/29/16 at 08:59 Fenofibrate (Tricor) 145 mg QHS PO Last administered on 11/28/16 20:13; Start 11/28/16 at 21:00; Stop 12/28/16 at 20:59 Fentanyl (Duragesic) 50 mcg Q72H TOP ; Start 11/29/16 at 12:00; Stop 12/06/16 at 11:59 Gabapentin (Neurontin) 1,200 mg TID PO Last administered on 11/29/16 07:49; Start 11/28/16 at 16:00; Stop 12/28/16 at 15:59 Glucagon (Glucagon) 1 mg ASDIRECTED PRN SC SEE LABEL COMMENTS; Start 11/28/16 at 13:15; Stop 12/28/16 at 13:14 Glucose (Glucose) 16 GM ASDIRECTED PRN PO SEE LABEL COMMENTS; Start 11/28/16 at 13:15; Stop 12/28/16 at 13:14 Hydralazine HCl (Apresoline) 50 mg Q8H PO Last administered on 11/29/16 06:00; Start 11/28/16 at 14:00; Stop 12/28/16 at 13:59 Insulin Human Lispro (HumaLOG INSULIN) See Protocol Table AC SC Last administered on 11/29/16 07:49; Start 11/28/16 at 17:30; Stop 12/28/16 at 17:29 Insulin Human Lispro (HumaLOG INSULIN) See Protocol Table QHS SC ; Start at 21:00; Stop 12/28/16 at 20:59 Metoprolol Succinate (TopROL XL) 75 mg DAILY PO Last administered on 11/29/16 07:50; Start 11/29/16 at 09:00; Stop 12/29/16 at 08:59 Niacin (Niaspan) 2,000 mg QHS PO Last administered on 11/28/16 20:12; Start 11/28/16 at 21:00; Stop 12/28/16 at 20:59 Non-Formulary Medication Combigan 0.2-0.5%, 1 drop... BID OS ; Start 11/28/16 at 21:00; Stop 12/28/16 at 20:59; Status UNV Non-Formulary Medication Lumigan 50 drop/2.5 ml Cheryl.... QHS OU ; Start 11/28/16 at 21:00; Stop 12/28/16 at 20:59; Status UNV Non-Formulary Medication ( See Comment Field Below ) SEE COMMENTS SECTION ASDIRECTED XX ; Start 11/28/16 at 14:30; Stop 12/05/16 at 14:29 Oxycodone/ Acetaminophen (Percocet 5mg/ 325mg Tablet) 1 tab Q4HP PRN PO MODERATE PAIN (PS 5-7) Last administered on 11/28/16 16:57; Start 11/28/16 at 13: 00; Stop 12/05/16 at 12:59 Oxycodone/ Acetaminophen (Percocet 5mg/ 325mg Tablet) 2 tab Q4HP PRN PO SEVERE PAIN (PS 8-10) Last administered on 11/29/16 06:02; Start 11/28/16 at 13:00; Stop 12/05/16 at 12:59 Pantoprazole Sodium (Protonix) 40 mg DAILY PO Last administered on 11/29/16 07: 49; Start 11/29/16 at 09:00; Stop 12/29/16 at 08:59 Patient Own Medication (Patient'S Own Med) 1 ea BID OS Last administered on 11/29 07:51; Start 11/28/16 at 21:00; Stop 12/28/16 at 20:59 Patient Own Medication (Patient'S Own Med) 1 ea QHS OU Last administered on 11/28 20:14; Start 11/28/16 at 21:00; Stop 12/28/16 at 20:59 Polyethylene Glycol (Miralax) 1 pkt DAILY PRN PO CONSTIPATION; Start 11/28/16 at 13:00; Stop 12/28/16 at 12:59 Senna/Docusate Sodium (Senokot S) 1 tab BID PO Last administered on 11/28/16 20 :13; Start 11/28/16 at 21:00; Stop 12/28/16 at 20:59 BRIDGER GARCÍA MD Nov 29, 2016 11:20
[2016-11-29] MEDS: fentaNYL 50 MCG/HR PATCH TOP SCH (12:06)
--- NOTE | 2016-11-29 13:02 | IPNPDOC ---
Date Seen The patient was seen on 11/29/16. Progress Note HPI: 71year oldM S/P left ankle fracture related to syncopal episodes felt related to Orthostatic hypotension/ORIF left ankle as per Orthopedics transferred to [facility], Dr Javier 11/28/16. No acute medical complaints today. Pt denies pain currently. Denies any fevers, chills, weakness, fatigue, Headache, Chest Pain, Shortness of breath, cough, palpitations, abdominal pain, N/V/D or changes in bowel or bladder habits. PMHx: HTN HLD NIDDM chronic LBP/chronic pain Anxiety depression PVD/Stents. Semel. GERD CKD3 Orthostatic hypotension GERD Vitamin D Def Hypomagnesemia PSHX: 1. Bilateral lower extremity bypass surgery. 2. AAA repair. 3. Appendectomy. 4. Cholecystectomy. 5. Multiple surgeries for bowel obstruction PE: GEN: 71yoM, appears stated age. Well-nourished, well developed. No acute distress. Alert and oriented x 3. Pleasant, interactive. HEENT: Normocephalic, atraumatic. Sclera are nonicteric. Conjunctiva without injection. Nose midline. No facial asymmetry. Moist mucous membranes. Dentition fair. Pharynx pink and moist, no cobblestoning. Neck supple, trachea midline. No lymphadenopathy or thyromegaly appreciated. CHEST: Regular rate and rhythm, +S1, +S2 LUNGS: Clear to auscultation bilaterally. No wheezes, rales, or rhonchi. Breathing appears symmetric and easy. Patient is speaking in full sentences. No accessory muscle use. ABD: Round, soft, non-tender, non-distended. +Bowel sounds throughout. No rebound or guarding. No costovertebral angle tenderness. EXT: Pulses 2+ bilaterally dorsalis pedis and radial. No Rt lower extremity edema appreciated. Cast present LLE. SKIN: [place], dry, warm. No rashes. NEURO: Alert and oriented x 3. Cranial nerves III-XII are intact. No focal deficits appreciated. A&P: 71year oldM S/P left ankle fracture/ORIF left ankle as per Orthopedics transferred to Dr Concepcion SOUZA 11/28/16. 1. Left ankle fracture/ORIF as per Orthopedics. Mgmt as per Dr Javier/ARU. PT/OT as per Dr Javier. Pain control as per Dr Javier. Bowel care as per Dr Javier. DVT prophylaxis. Eliquis. 2. Syncopal episodes felt related to Orthostatic hypotension. No recurrence on current BP meds. Monitor. 3. HTN. Continue Hydralazine, metoprolol, amlodipine. BP trend 130-160. Request Orthostatic VS in AM 4. PVD/Stents. Evaluated as per Dr Mclain during admission. Continue with Eliquis /Plavix. 5. GERD. PPI/H2 braydon 6. HLD. Lipitor/Tricor/Niaspan. 7. Anxiety/depression. Cymbalta. 8. Chronic pain/LBP. Continue Gabapentin. 9. CKD3. Monitor BMP. 10. NIDDM. CC diet. Januvia. SSI. 11. hypomagnesemia. Cont po supplement. Check mag level with labs in AM. 12. Elevated LFT. Monitor CMP. Add hepatitis profile. Consider RUQ U/S. 13. Anemia. Add Fe studies/B12/folate. Stool OB. Baseline 12-14. VS, I&O, 24H, Fishbone Vital Signs/I&O Vital Signs Date Time Temp Pulse Resp B/P (MAP) Pulse Ox O2 Delivery O2 Flow Rate FiO2 11/29/16 12:06 18 11/29/16 07:50 104 143/69 11/29/16 07:50 Room Air 11/29/16 06:00 98.9 97 I&O- Last 24 Hours up to 6 AM 11/29/16 06:00 Intake Total 360 ml Output Total 1225 ml Balance -865 ml Laboratory Data 24H LABS Laboratory Tests 2 11/28/16 16:31: Bedside Glucose (Misc Panel) 137H 11/28/16 17:22: Urine Appearance CLEAR, Urine Color YELLOW, Urine pH 6.0, Urine Specific [place] 1.011, Urine Protein NEGATIVE, Urine Glucose (UA) NEGATIVE, Urine Ketones NEGATIVE, Urine Urobilinogen 0.2, Urine Bilirubin NEGATIVE, Urine Leukocyte Esterase NEGATIVE, Urine Blood NEGATIVE, Urine Nitrite NEGATIVE, Urine WBC (Auto) 0, Urine RBC (Auto) 2, Urine Hyaline Casts (Auto) 0, Urine Bacteria (Auto) NEGATIVE, Urine Squamous Epithelial Cells 0, Urine Mucus (Auto) SMALL, Urine Sperm (Auto) 11/28/16 20:01: Bedside Glucose (Misc Panel) 140H 11/29/16 06:18: White Blood Count 5.8, Red Blood Count 3.89L, Hemoglobin 12.3L, Hematocrit 36.8L , Mean Corpuscular Volume 94.7, Mean Corpuscular Hemoglobin 31.6, Mean Corpuscular Hemoglobin Concent 33.3, Red Cell Distribution Width 14.5, Platelet Count 443, Neutrophils (%) (Auto) 62.4, Lymphocytes (%) (Auto) 23.0L, Monocytes (%) (Auto) 9.5H, Eosinophils (%) (Auto) 1.7, Basophils (%) (Auto) 0.7, Neutrophils # (Auto) 3.6, Lymphocytes # (Auto) 1.5, Monocytes # (Auto) 0.5, Eosinophils # (Auto) 0.1, Basophils # (Auto) 0.0, Large Unclassified Cells % 2.6 , Large Unclassified Cells # 0.2, Anion Gap 11, Glomerular Filtration Rate > 60.0, Blood Urea Nitrogen 20H, Creatinine 1.25, Sodium Level 141, Potassium Level 4.5, Chloride Level 106, Carbon Dioxide Level 24, Calcium Level 9.8, Aspartate Amino Transf (AST/SGOT) 51H, Alanine Aminotransferase (ALT/SGPT) 43, Alkaline Phosphatase 51, Total Bilirubin 0.4, Total Protein 7.2, Albumin 2.9L, Albumin/Globulin Ratio 0.67L 11/29/16 11:30: Bedside Glucose (Misc Panel) 119H CBC/BMP Laboratory Tests 11/29/16 06:18 Red Blood Count 3.89 L, Mean Corpuscular Volume 94.7, Mean Corpuscular Hemoglobin 31.6, Mean Corpuscular Hemoglobin Concent 33.3, Red Cell Distribution Width 14.5, Neutrophils (%) (Auto) 62.4, Lymphocytes (%) (Auto) 23.0 L, Monocytes (%) (Auto) 9.5 H, Eosinophils (%) (Auto) 1.7, Basophils (%) ( Auto) 0.7, Neutrophils # (Auto) 3.6, Lymphocytes # (Auto) 1.5, Monocytes # (Auto ) 0.5, Eosinophils # (Auto) 0.1, Basophils # (Auto) 0.0, Calcium Level 9.8, Aspartate Amino Transf (AST/SGOT) 51 H, Alanine Aminotransferase (ALT/SGPT) 43, Alkaline Phosphatase 51, Total Bilirubin 0.4, Total Protein 7.2, Albumin 2.9 L Kaitlin Mckinnon Nov 29, 2016 13:02
[2016-11-29 14:00] VITALS: BP 150/60
[2016-11-29] MEDS: MAGNESIUM OXIDE 400 MG TAB (MAG-OX) PO SCH ×2 (14:05→20:41)
[2016-11-29] MEDS: FAMOTIDINE 20 MG TAB PO SCH (14:06)
[2016-11-29] MEDS: VITAMIN D 1,000 INTERNATIONAL UNITS TABLET PO SCH (14:06)
[2016-11-29] MEDS: SITagliptin 50 MG TAB (JANUVIA) PO SCH (14:06)
[2016-11-29 15:49] LABS: PERCENT SATURATION 17.8 % (19.7-50.0)
[2016-11-29 16:08] LABS: FOLATE 13.3 NG/ML (>5.4)
[2016-11-29 20:00] VITALS: BP 162/64
[2016-11-29] MEDS: NIACIN SR (NIASPAN) 500 MG TAB PO SCH (20:39)
[2016-11-29] MEDS: ATORVASTATIN 20 MG TAB PO SCH (20:39)
[2016-11-29] MEDS: CLOPIDOGREL 75 MG TAB PO SCH (20:40)
[2016-11-29] MEDS: FENOFIBRATE 145 MG TAB (TRICOR) PO SCH (20:40)
[2016-11-29] MEDS: LUMIGAN EYE DROPS (PATIENT'S OWN MED) OU SCH (20:42)
[2016-11-29 22:27] VITALS: BP 156/69
[2016-11-30 06:00] VITALS: BP_SYST 149; BP_SYST 172; BP_DIAS 157; BP_DIAS 74; BP_DIAS 80
[2016-11-30] MEDS: **hydrALAZINE** 50 MG TAB PO SCH ×3 (06:22→21:45)
[2016-11-30 07:34] LABS: MEAN CORPUSCULAR HEMOGLOBIN 31.6 pg (27.0-33.0); MEAN CORPUSCULAR HGB CONC 33.3 g/dl (32.0-36.5); RED CELL DISTRIBUTION WIDTH 14.9 % (11.5-14.5); WHITE BLOOD COUNT 5.7 K/mm3 (4.0-10.0)
[2016-11-30 07:55] LABS: ALBUMIN/GLOBULIN RATIO 0.7 (1.00-1.93); BILIRUBIN,TOTAL 0.5 MG/DL (0.2-1.0); CALCIUM LEVEL 9.7 MG/DL (8.8-10.2); CREATININE FOR GFR 1.3 MG/DL (0.70-1.30); GLOMERULAR FILTRATION RATE 58.3 (>49); MAGNESIUM LEVEL 2.1 MG/DL (1.8-2.4); POTASSIUM SERUM 3.9 MEQ/L (3.5-5.1); TOTAL PROTEIN 7.3 GM/DL (6.4-8.2)
[2016-11-30] MEDS: MAGNESIUM OXIDE 400 MG TAB (MAG-OX) PO SCH ×2 (08:29→21:45)
[2016-11-30] MEDS: PANTOPRAZOLE 40MG TAB (PROTONIX) PO SCH (08:29)
[2016-11-30] MEDS: SITagliptin 50 MG TAB (JANUVIA) PO SCH (08:30)
[2016-11-30] MEDS: amLODIPine 5 MG TAB PO SCH (08:30)
[2016-11-30] MEDS: METOPROLOL SUCC *XL* 25MG TAB (TopROL *XL*) PO SCH (08:30)
[2016-11-30] MEDS: VITAMIN D 1,000 INTERNATIONAL UNITS TABLET PO SCH (08:30)
[2016-11-30] MEDS: SENOKOT S TAB PO SCH ×2 (08:30→21:45)
[2016-11-30] MEDS: DULoxetine 30 MG CAP (CYMBALTA) PO SCH (08:30)
[2016-11-30] MEDS: GABAPENTIN 400 MG CAP PO SCH ×3 (08:31→21:44)
[2016-11-30] MEDS: APIXABAN 5 MG TAB (ELIQUIS) PO SCH ×2 (08:31→21:45)
[2016-11-30] MEDS: FAMOTIDINE 20 MG TAB PO SCH (08:31)
[2016-11-30] MEDS: HumaLOG INSULIN (NovoLOG) PER UNIT SC SCH ×4 (08:31→21:00)
[2016-11-30] MEDS: COMBIGAN EYE DROPS (PATIENT'S OWN MED) OS SCH ×2 (08:32→21:00)
[2016-11-30 10:43] VITALS: BP 126/52
--- NOTE | 2016-11-30 11:33 | IPNPDOC ---
[facility] Progress Note DATE OF SERVICE: 11/30/16 DATE OF ADMISSION: Nov 28, 2016 at 14:10 INPATIENT REHABILITATION ADMISSION DAY: #3 SUBJECTIVE: Patient is a 71-year-old white male with syncopal episode causing fall with spiral fracture of the distal left fibula with delayed surgery due to anticoagulation management for extensive peripheral vascular disease. Patient also with hypertension hyperlipidemia type 2 diabetes with acute on chronic renal disease and chronic back pain. This right-handed gentleman needs to improve his overall conditioning and learn adaptive mobilities ADLs and transfers to facilitate return home with his . Patient seen in his room this morning, and notes some of his chronic back pain and aching in the left ankle. No other complaints today. ALLERGIES: See Below MEDICATIONS: Reviewed, see below. OBJECTIVE: VITAL SIGNS: Please see below. PHYSICAL EXAMINATION: GENERAL: Tall muscular but overweight late middle-age white male who looks approximately stated age and is in mild muscle skeletal distress with a plaster splint on his left foot and ankle with good toe perfusion and sensation present. HEENT: Normocephalic/atraumatic. CARDIOVASCULAR: Irregularly irregular rate and rhythm. 2/4 bilateral radial pulses with good perfusion to nails. LUNGS: All hollis clear to auscultation. ABDOMEN: Obese, nontender, with normal bowel sounds in all quadrants. NEUROLOGICAL: Patient is alert and oriented 4. Speech is clear, coherent and appropriate. Affect is pleasant and cooperative with just the slightest amount of flattening. Memory is intact. Bilateral upper extremities and right lower extremity functionally intact for sensory motor. Sensorium intact and left lower extremity with a little bit guarding of the foot and ankle. SKIN: Grossly intact. LABORATORY DATA: Reviewed. Please see below. MICROBIOLOGY: Please see below. IMAGING: No new imaging. DVT prophylaxis ordered?: SHWETA hose and Eliquis 5mg bid. ASSESSMENT AND PLAN: 1. Rehabilitation of left ankle fracture with open reduction internal fixation: Patient challenged by peripheral vascular disease and chronic back pain is starring in program of physical and occupational therapy to learn Adaptive mobility and ADLs. I will reassess estimated length of stay based on patient performance in physical and occupational therapy today. Currently looking at 14-17 days for patient to line appropriate adaption return home with . 2. Atrial fibrillation: Patient continues in this arrhythmia that maintaining good blood pressure and overall appears to be good perfusion though he does have extensive peripheral vascular disease. We will continue to monitor his cardiovascular function and the potential impact on skin while patient is less mobile. 3. Type 2 diabetes mellitus: Fasting blood sugar 142 this morning. Renal function appears to be good on CMP with BUN of 23 and creatinine 1.30. 4. Anemia: Very mild and stable at this point with hemoglobin and hematocrit 12.0 and 36.0%. 5. Hepatitis Panel: Pending. TIME SPENT: Chart Review, examination and documentation require greater than 25 minutes. Allergies Coded Allergies: No Known Allergies (Verified , 07/02/04) Vital Signs Vital Signs Date Time Temp Pulse Resp B/P (MAP) Pulse Ox O2 Delivery O2 Flow Rate FiO2 11/30/16 10:43 126/52 (76) 11/30/16 09:00 Room Air 11/30/16 08:30 73 11/29/16 20:00 98.0 17 95 Laboratory Data CBC/BMP Laboratory Tests 11/30/16 07:07 Red Blood Count 3.79 L, Mean Corpuscular Volume 95.0, Mean Corpuscular Hemoglobin 31.6, Mean Corpuscular Hemoglobin Concent 33.3, Red Cell Distribution Width 14.9 H, Calcium Level 9.7, Aspartate Amino Transf (AST/SGOT) 25, Alanine Aminotransferase (ALT/SGPT) 36, Alkaline Phosphatase 59, Total Bilirubin 0.5, Total Protein 7.3, Albumin 3.0 L Labs 24H Laboratory Tests 2 11/29/16 11:30: Bedside Glucose (Misc Panel) 119H 11/29/16 14:14: Iron Level 51L, Total Iron Binding Capacity 287, Transferrin % Saturation 17.8L , Ferritin 142, Vitamin B12 Level 315, Folate 13.3 11/29/16 16:22: Bedside Glucose (Misc Panel) 119H 11/29/16 20:02: Bedside Glucose (Misc Panel) 120H 11/30/16 07:07: Anion Gap 8, Glomerular Filtration Rate 58.3, Blood Urea Nitrogen 23H, Creatinine 1.30, Sodium Level 140, Potassium Level 3.9, Chloride Level 104, Carbon Dioxide Level 28, Calcium Level 9.7, Aspartate Amino Transf (AST/SGOT) 25 , Alanine Aminotransferase (ALT/SGPT) 36, Alkaline Phosphatase 59, Total Bilirubin 0.5, Total Protein 7.3, Albumin 3.0L, Magnesium Level 2.1, Albumin/ Globulin Ratio 0.70L Current Medications Current Medications Current Medications Amlodipine Besylate (Norvasc) 5 mg DAILY PO Last administered on 11/30/16 08:30 ; Start 11/29/16 at 09:00; Stop 12/29/16 at 08:59 Apixaban (Eliquis) 5 mg BID PO Last administered on 11/30/16 08:31; Start at 21:00; Stop 12/05/16 at 20:59 Atorvastatin Calcium (Lipitor) 20 mg QHS PO Last administered on 11/29/16 20:39 ; Start 11/28/16 at 21:00; Stop 12/28/16 at 20:59 Clopidogrel Bisulfate (PLAVix) 75 mg QHS PO Last administered on 11/29/16 20:40 ; Start 11/29/16 at 21:00; Stop 12/29/16 at 20:59 Dextrose (Dextrose 50%) 25 ml ASDIRECTED PRN IV SEE LABEL COMMENTS; Start at 13:15; Stop 12/28/16 at 13:14 Duloxetine HCl (Cymbalta) 60 mg DAILY PO Last administered on 11/30/16 08:30; Start 11/29/16 at 09:00; Stop 12/29/16 at 08:59 Famotidine (Pepcid) 40 mg DAILY PO Last administered on 11/30/16 08:31; Start 11/29/16 at 09:00; Stop 12/29/16 at 08:59 Fenofibrate (Tricor) 145 mg QHS PO Last administered on 11/29/16 20:40; Start 11/28/16 at 21:00; Stop 12/28/16 at 20:59 Fentanyl (Duragesic) 50 mcg Q72H TOP Last administered on 11/29/16 12:06; Start 11/29/16 at 12:00; Stop 12/06/16 at 11:59 Gabapentin (Neurontin) 1,200 mg TID PO Last administered on 11/30/16 08:31; Start 11/28/16 at 16:00; Stop 12/28/16 at 15:59 Glucagon (Glucagon) 1 mg ASDIRECTED PRN SC SEE LABEL COMMENTS; Start 11/28/16 at 13:15; Stop 12/28/16 at 13:14 Glucose (Glucose) 16 GM ASDIRECTED PRN PO SEE LABEL COMMENTS; Start 11/28/16 at 13:15; Stop 12/28/16 at 13:14 Hydralazine HCl (Apresoline) 50 mg Q8H PO Last administered on 11/30/16 06:22; Start 11/28/16 at 14:00; Stop 12/28/16 at 13:59 Insulin Human Lispro (HumaLOG INSULIN) See Protocol Table AC SC Last administered on 11/30/16 08:31; Start 11/28/16 at 17:30; Stop 12/28/16 at 17:29 Insulin Human Lispro (HumaLOG INSULIN) See Protocol Table QHS SC ; Start at 21:00; Stop 12/28/16 at 20:59 Magnesium Oxide (Mag-Ox) 400 mg BID PO Last administered on 11/30/16 08:29; Start 11/29/16 at 09:00; Stop 12/29/16 at 08:59 Metoprolol Succinate (TopROL XL) 75 mg DAILY PO Last administered on 11/30/16 08:30; Start 11/29/16 at 09:00; Stop 12/29/16 at 08:59 Niacin (Niaspan) 2,000 mg QHS PO Last administered on 11/29/16 20:39; Start 11/28/16 at 21:00; Stop 12/28/16 at 20:59 Non-Formulary Medication Combigan 0.2-0.5%, 1 drop... BID OS ; Start 11/28/16 at 21:00; Stop 12/28/16 at 20:59; Status UNV Non-Formulary Medication Lumigan 50 drop/2.5 ml Cheryl.... QHS OU ; Start 11/28/16 at 21:00; Stop 12/28/16 at 20:59; Status UNV Non-Formulary Medication ( See Comment Field Below ) SEE COMMENTS SECTION ASDIRECTED XX ; Start 11/28/16 at 14:30; Stop 12/05/16 at 14:29 Oxycodone/ Acetaminophen (Percocet 5mg/ 325mg Tablet) 1 tab Q4HP PRN PO MODERATE PAIN (PS 5-7) Last administered on 11/28/16 16:57; Start 11/28/16 at 13: 00; Stop 12/05/16 at 12:59 Oxycodone/ Acetaminophen (Percocet 5mg/ 325mg Tablet) 2 tab Q4HP PRN PO SEVERE PAIN (PS 8-10) Last administered on 11/29/16 18:20; Start 11/28/16 at 13:00; Stop 12/05/16 at 12:59 Pantoprazole Sodium (Protonix) 40 mg DAILY PO Last administered on 11/30/16 08: 29; Start 11/29/16 at 09:00; Stop 12/29/16 at 08:59 Patient Own Medication (Patient'S Own Med) 1 ea BID OS Last administered on 11/30 08:32; Start 11/28/16 at 21:00; Stop 12/28/16 at 20:59 Patient Own Medication (Patient'S Own Med) 1 ea QHS OU Last administered on 11/29 20:42; Start 11/28/16 at 21:00; Stop 12/28/16 at 20:59 Polyethylene Glycol (Miralax) 1 pkt DAILY PRN PO CONSTIPATION; Start 11/28/16 at 13:00; Stop 12/28/16 at 12:59 Senna/Docusate Sodium (Senokot S) 1 tab BID PO Last administered on 11/30/16 08 :30; Start 11/28/16 at 21:00; Stop 12/28/16 at 20:59 Sitagliptin Phosphate (Januvia) 100 mg DAILY PO Last administered on 11/30/16 08:30; Start 11/29/16 at 09:00; Stop 12/29/16 at 08:59 Vitamin D (Vitamin D) 1,000 units DAILY PO Last administered on 11/30/16 08:30 ; Start 11/29/16 at 09:00; Stop 12/29/16 at 08:59 BRIDGER GARCÍA MD Nov 30, 2016 11:33
--- NOTE | 2016-11-30 11:41 | IPNPDOC ---
Date Seen The patient was seen on 11/30/16. Progress Note HPI: 71year oldM S/P left ankle fracture related to syncopal episodes felt related to Orthostatic hypotension/ORIF left ankle as per Orthopedics transferred to [facility], Dr Javier 11/28/16. No acute medical complaints today. Pt denies pain currently. Denies any fevers, chills, weakness, fatigue, Headache, Chest Pain, Shortness of breath, cough, palpitations, abdominal pain, N/V/D or changes in bowel or bladder habits. PMHx: HTN HLD NIDDM chronic LBP/chronic pain Anxiety depression PVD/Stents. Semel. GERD CKD3 Orthostatic hypotension GERD Vitamin D Def Hypomagnesemia PSHX: 1. Bilateral lower extremity bypass surgery. 2. AAA repair. 3. Appendectomy. 4. Cholecystectomy. 5. Multiple surgeries for bowel obstruction PE: GEN: 71yoM, appears stated age. Well-nourished, well developed. No acute distress. Alert and oriented x 3. Pleasant, interactive. HEENT: Normocephalic, atraumatic. Sclera are nonicteric. Conjunctiva without injection. Nose midline. No facial asymmetry. Moist mucous membranes. Dentition fair. Pharynx pink and moist, no cobblestoning. Neck supple, trachea midline. No lymphadenopathy or thyromegaly appreciated. CHEST: Regular rate and rhythm, +S1, +S2 LUNGS: Clear to auscultation bilaterally. No wheezes, rales, or rhonchi. Breathing appears symmetric and easy. Patient is speaking in full sentences. No accessory muscle use. ABD: Round, soft, non-tender, non-distended. +Bowel sounds throughout. No rebound or guarding. No costovertebral angle tenderness. EXT: Pulses 2+ bilaterally dorsalis pedis and radial. No Rt lower extremity edema appreciated. Cast present LLE. SKIN: [place], dry, warm. No rashes. NEURO: Alert and oriented x 3. Cranial nerves III-XII are intact. No focal deficits appreciated. A&P: 71year oldM S/P left ankle fracture/ORIF left ankle as per Orthopedics transferred to Dr Concepcion SOUZA 11/28/16. 1. Left ankle fracture/ORIF as per Orthopedics. Mgmt as per Dr Javier/ARU. PT/OT as per Dr Javier. Pain control as per Dr Javier. Bowel care as per Dr Javier. DVT prophylaxis. Eliquis. 2. Syncopal episodes felt related to Orthostatic hypotension. No recurrence on current BP meds. Monitor. 3. HTN. Continue Hydralazine, metoprolol, amlodipine. BP trend appears elevated with automatic cuff however manual cuff today 126/52. Request Orthostatic VS in AM 4. PVD/Stents. Evaluated as per Dr Mclain during admission. Continue with Eliquis /Plavix. 5. GERD. PPI/H2 braydon 6. HLD. Lipitor/Tricor/Niaspan. 7. Anxiety/depression. Cymbalta. 8. Chronic pain/LBP. Continue Gabapentin. 9. CKD3. Monitor BMP. 10. NIDDM. CC diet. Januvia. SSI. 11. hypomagnesemia. Cont po supplement. mag level WNL. 12. Elevated LFT. Resolved. Monitor CMP. Hepatitis profile pending. 13. Anemia. Fe studies/B12/folate. Stool OB pending. Baseline appears to be 12- 14. VS, I&O, 24H, Fishbone Vital Signs/I&O Vital Signs Date Time Temp Pulse Resp B/P (MAP) Pulse Ox O2 Delivery O2 Flow Rate FiO2 11/30/16 10:43 126/52 (76) 11/30/16 09:00 Room Air 11/30/16 08:30 73 11/29/16 20:00 98.0 17 95 I&O- Last 24 Hours up to 6 AM 11/30/16 06:00 Intake Total 1520 ml Output Total 1050 ml Balance 470 ml Laboratory Data 24H LABS Laboratory Tests 2 11/29/16 14:14: Iron Level 51L, Total Iron Binding Capacity 287, Transferrin % Saturation 17.8L , Ferritin 142, Vitamin B12 Level 315, Folate 13.3 11/29/16 16:22: Bedside Glucose (Misc Panel) 119H 11/29/16 20:02: Bedside Glucose (Misc Panel) 120H 11/30/16 07:07: Anion Gap 8, Glomerular Filtration Rate 58.3, Blood Urea Nitrogen 23H, Creatinine 1.30, Sodium Level 140, Potassium Level 3.9, Chloride Level 104, Carbon Dioxide Level 28, Calcium Level 9.7, Aspartate Amino Transf (AST/SGOT) 25 , Alanine Aminotransferase (ALT/SGPT) 36, Alkaline Phosphatase 59, Total Bilirubin 0.5, Total Protein 7.3, Albumin 3.0L, Magnesium Level 2.1, Albumin/ Globulin Ratio 0.70L CBC/BMP Laboratory Tests 11/30/16 07:07 Red Blood Count 3.79 L, Mean Corpuscular Volume 95.0, Mean Corpuscular Hemoglobin 31.6, Mean Corpuscular Hemoglobin Concent 33.3, Red Cell Distribution Width 14.9 H, Calcium Level 9.7, Aspartate Amino Transf (AST/SGOT) 25, Alanine Aminotransferase (ALT/SGPT) 36, Alkaline Phosphatase 59, Total Bilirubin 0.5, Total Protein 7.3, Albumin 3.0 L Kaitlin Mckinnon Nov 30, 2016 11:41
[2016-11-30] MEDS: PERCOCET 5MG/325MG TAB PO PRN ×2 (11:42→21:44)
[2016-11-30 14:00] VITALS: BP 152/60
[2016-11-30 21:00] VITALS: BP 140/63
[2016-11-30] MEDS: LUMIGAN EYE DROPS (PATIENT'S OWN MED) OU SCH (21:00)
[2016-11-30] MEDS: NIACIN SR (NIASPAN) 500 MG TAB PO SCH (21:44)
[2016-11-30] MEDS: FENOFIBRATE 145 MG TAB (TRICOR) PO SCH (21:44)
[2016-11-30] MEDS: ATORVASTATIN 20 MG TAB PO SCH (21:45)
[2016-11-30] MEDS: CLOPIDOGREL 75 MG TAB PO SCH (21:45)
[2016-12-01] MEDS: **hydrALAZINE** 50 MG TAB PO SCH ×3 (06:40→21:12)
[2016-12-01 07:00] VITALS: BP 162/70
[2016-12-01 07:03] VITALS: BP 164/68
[2016-12-01 07:06] VITALS: BP 178/80
[2016-12-01 08:06] LABS: MEAN CORPUSCULAR HEMOGLOBIN 31.1 pg (27.0-33.0); MEAN CORPUSCULAR HGB CONC 31.8 g/dl (32.0-36.5); MEAN CORPUSCULAR VOLUME 97.8 fl (80.0-96.0); RED CELL DISTRIBUTION WIDTH 14.9 % (11.5-14.5)
[2016-12-01 08:16] LABS: ALBUMIN 3.1 GM/DL (3.2-5.2); ALBUMIN/GLOBULIN RATIO 0.78 (1.00-1.93); BILIRUBIN,TOTAL 0.5 MG/DL (0.2-1.0); CALCIUM LEVEL 9.4 MG/DL (8.8-10.2); CREATININE FOR GFR 1.41 MG/DL (0.70-1.30); GLOMERULAR FILTRATION RATE 53.1 (>49); POTASSIUM SERUM 4.6 MEQ/L (3.5-5.1); TOTAL PROTEIN 7.1 GM/DL (6.4-8.2)
[2016-12-01] MEDS: HumaLOG INSULIN (NovoLOG) PER UNIT SC SCH ×4 (09:08→21:00)
[2016-12-01] MEDS: SITagliptin 50 MG TAB (JANUVIA) PO SCH (09:09)
[2016-12-01] MEDS: FAMOTIDINE 20 MG TAB PO SCH (09:09)
[2016-12-01] MEDS: APIXABAN 5 MG TAB (ELIQUIS) PO SCH ×2 (09:09→21:12)
[2016-12-01] MEDS: MAGNESIUM OXIDE 400 MG TAB (MAG-OX) PO SCH ×2 (09:09→21:12)
[2016-12-01] MEDS: PANTOPRAZOLE 40MG TAB (PROTONIX) PO SCH (09:09)
[2016-12-01] MEDS: SENOKOT S TAB PO SCH ×2 (09:09→21:12)
[2016-12-01] MEDS: DULoxetine 30 MG CAP (CYMBALTA) PO SCH (09:09)
[2016-12-01] MEDS: amLODIPine 5 MG TAB PO SCH (09:10)
[2016-12-01] MEDS: METOPROLOL SUCC *XL* 25MG TAB (TopROL *XL*) PO SCH (09:10)
[2016-12-01] MEDS: VITAMIN D 1,000 INTERNATIONAL UNITS TABLET PO SCH (09:10)
[2016-12-01] MEDS: GABAPENTIN 400 MG CAP PO SCH ×3 (09:10→21:12)
[2016-12-01] MEDS: COMBIGAN EYE DROPS (PATIENT'S OWN MED) OS SCH ×2 (09:11→21:00)
--- NOTE | 2016-12-01 12:17 | IPNPDOC ---
Date Seen The patient was seen on 12/01/16. Progress Note HPI: 71year oldM S/P left ankle fracture related to syncopal episodes felt related to Orthostatic hypotension/ORIF left ankle as per Orthopedics transferred to [facility], Dr Javier 11/28/16. No acute medical complaints today. Pt denies pain currently. Denies any fevers, chills, weakness, fatigue, Headache, Chest Pain, Shortness of breath, cough, palpitations, abdominal pain, N/V/D or changes in bowel or bladder habits. PMHx: HTN HLD NIDDM chronic LBP/chronic pain Anxiety depression PVD/Stents. Semel. GERD CKD3 Orthostatic hypotension GERD Vitamin D Def Hypomagnesemia PSHX: 1. Bilateral lower extremity bypass surgery. 2. AAA repair. 3. Appendectomy. 4. Cholecystectomy. 5. Multiple surgeries for bowel obstruction PE: GEN: 71yoM, appears stated age. Well-nourished, well developed. No acute distress. Alert and oriented x 3. Pleasant, interactive. HEENT: Normocephalic, atraumatic. Sclera are nonicteric. Conjunctiva without injection. Nose midline. No facial asymmetry. Moist mucous membranes. Dentition fair. Pharynx pink and moist, no cobblestoning. Neck supple, trachea midline. No lymphadenopathy or thyromegaly appreciated. CHEST: Regular rate and rhythm, +S1, +S2 LUNGS: Clear to auscultation bilaterally. No wheezes, rales, or rhonchi. Breathing appears symmetric and easy. Patient is speaking in full sentences. No accessory muscle use. ABD: Round, soft, non-tender, non-distended. +Bowel sounds throughout. No rebound or guarding. No costovertebral angle tenderness. EXT: Pulses 2+ bilaterally dorsalis pedis and radial. No Rt lower extremity edema appreciated. Cast present LLE. SKIN: [place], dry, warm. No rashes. NEURO: Alert and oriented x 3. Cranial nerves III-XII are intact. No focal deficits appreciated. A&P: 71year oldM S/P left ankle fracture/ORIF left ankle as per Orthopedics transferred to Dr Concepcion SOUZA 11/28/16. 1. Left ankle fracture/ORIF as per Orthopedics. Mgmt as per Dr Javier/ARU. PT/OT as per Dr Javier. Pain control as per Dr Javier. Bowel care as per Dr Javier. DVT prophylaxis. Eliquis. 2. Syncopal episodes felt related to Orthostatic hypotension. No recurrence on current BP meds. Monitor. 3. HTN. Continue Hydralazine, metoprolol, amlodipine. BP trend appears elevated with automatic cuff however manual cuff yesterday 126/ 52, today 132/54. Request Orthostatic VS in AM Manual BP 4. PVD/Stents. Evaluated as per Dr Mclain during admission. Continue with Eliquis /Plavix. 5. GERD. PPI/H2 braydon 6. HLD. Lipitor/Tricor/Niaspan. 7. Anxiety/depression. Cymbalta. 8. Chronic pain/LBP. Continue Gabapentin. 9. CKD3. Monitor BMP. Baseline appears to be 1.4-1.7. 10. NIDDM. CC diet. Januvia. SSI. 11. hypomagnesemia. Cont po supplement. mag level WNL. 12. Elevated LFT. Resolved. Monitor CMP. Hepatitis profile neg. 13. Anemia. Fe studies/B12/folate. Stool OB pending. Baseline appears to be 12- 14. VS, I&O, 24H, Fishbone Vital Signs/I&O Vital Signs Date Time Temp Pulse Resp B/P (MAP) Pulse Ox O2 Delivery O2 Flow Rate FiO2 12/01/16 09:10 104 178/80 12/01/16 09:00 Room Air 12/01/16 06:00 96.6 18 98 I&O- Last 24 Hours up to 6 AM 12/01/16 06:00 Intake Total 1200 ml Output Total 2000 ml Balance -800 ml Laboratory Data 24H LABS Laboratory Tests 2 11/30/16 16:34: Bedside Glucose (Misc Panel) 138H 11/30/16 20:49: Bedside Glucose (Misc Panel) 164H 12/01/16 07:34: Anion Gap 11, Glomerular Filtration Rate 53.1, Blood Urea Nitrogen 25H, Creatinine 1.41H, Sodium Level 141, Potassium Level 4.6, Chloride Level 106, Carbon Dioxide Level 24, Calcium Level 9.4, Aspartate Amino Transf (AST/SGOT) 21 , Alanine Aminotransferase (ALT/SGPT) 33, Alkaline Phosphatase 63, Total Bilirubin 0.5, Total Protein 7.1, Albumin 3.1L, Albumin/Globulin Ratio 0.78L 12/01/16 11:58: Bedside Glucose (Misc Panel) 81 CBC/BMP Laboratory Tests 12/01/16 07:34 Red Blood Count 3.72 L, Mean Corpuscular Volume 97.8 H, Mean Corpuscular Hemoglobin 31.1, Mean Corpuscular Hemoglobin Concent 31.8 L, Red Cell Distribution Width 14.9 H, Calcium Level 9.4, Aspartate Amino Transf (AST/SGOT) 21, Alanine Aminotransferase (ALT/SGPT) 33, Alkaline Phosphatase 63, Total Bilirubin 0.5, Total Protein 7.1, Albumin 3.1 L Kaitlin Mckinnon Dec 01, 2016 12:17
[2016-12-01 12:44] VITALS: BP 132/54
--- NOTE | 2016-12-01 12:49 | IPNPDOC ---
Manager Access Progress Note DATE OF SERVICE: 12/01/16 DATE OF ADMISSION: Nov 28, 2016 at 14:10 INPATIENT REHABILITATION ADMISSION DAY: #4 SUBJECTIVE: Patient is a 71-year-old white male with syncopal episode causing fall with spiral fracture of the distal left fibula with delayed surgery due to anticoagulation management for extensive peripheral vascular disease. Patient also with hypertension hyperlipidemia type 2 diabetes with acute on chronic renal disease and chronic back pain. This right-handed gentleman needs to improve his overall conditioning and learn adaptive mobilities ADLs and transfers to facilitate return home with his . Patient seen in his room this morning, and notes some of his chronic back pain and aching in the left ankle. No other complaints today. ALLERGIES: See Below MEDICATIONS: Reviewed, see below. OBJECTIVE: VITAL SIGNS: Please see below. PHYSICAL EXAMINATION: GENERAL: Tall muscular but overweight late middle-age white male who looks approximately stated age and is in mild muscle skeletal distress with a plaster splint on his left foot and ankle with good toe perfusion and sensation present. HEENT: Normocephalic/atraumatic. CARDIOVASCULAR: Irregularly irregular rate and rhythm. 2/4 bilateral radial pulses with good perfusion to nails. LUNGS: All hollis clear to auscultation. ABDOMEN: Obese, nontender, with normal bowel sounds in all quadrants. NEUROLOGICAL: Patient is alert and oriented 4. Speech is clear, coherent and appropriate. Affect is pleasant and cooperative with just the slightest amount of flattening. Memory is intact. Bilateral upper extremities and right lower extremity functionally intact for sensory motor. Sensorium intact and left lower extremity with a little bit guarding of the foot and ankle. SKIN: Grossly intact. LABORATORY DATA: Reviewed. Please see below. MICROBIOLOGY: Please see below. IMAGING: No new imaging. DVT prophylaxis ordered?: SHWETA hose and Eliquis 5mg bid. ASSESSMENT AND PLAN: 1. Rehabilitation of left ankle fracture with open reduction internal fixation: Patient challenged by peripheral vascular disease and chronic back pain is in a program of physical and occupational therapy to learn Adaptive mobility and ADLs. I will reassess estimated length of stay based on patient performance in physical and occupational therapy today. Currently looking at 14-17 days for patient to line appropriate adaption return home with . 2. Atrial fibrillation: Patient continues in this arrhythmia that maintaining good blood pressure and overall appears to be good perfusion though he does have extensive peripheral vascular disease. We will continue to monitor his cardiovascular function and the potential impact on skin while patient is less mobile. 3. Type 2 diabetes mellitus: Fasting blood sugar 155 this morning. Renal function on CMP with BUN of 25 and creatinine 1.41. 4. Anemia: Very mild and stable at this point with hemoglobin and hematocrit 11.5 and 36.3%. 5. Hepatitis Panel: Negative for all results. TIME SPENT: Chart Review, examination and documentation require greater than 25 minutes. Allergies Coded Allergies: No Known Allergies (Verified , 07/02/04) Vital Signs Vital Signs Date Time Temp Pulse Resp B/P (MAP) Pulse Ox O2 Delivery O2 Flow Rate FiO2 12/01/16 09:10 104 178/80 12/01/16 09:00 Room Air 12/01/16 06:00 96.6 18 98 Laboratory Data CBC/BMP Laboratory Tests 12/01/16 07:34 Red Blood Count 3.72 L, Mean Corpuscular Volume 97.8 H, Mean Corpuscular Hemoglobin 31.1, Mean Corpuscular Hemoglobin Concent 31.8 L, Red Cell Distribution Width 14.9 H, Calcium Level 9.4, Aspartate Amino Transf (AST/SGOT) 21, Alanine Aminotransferase (ALT/SGPT) 33, Alkaline Phosphatase 63, Total Bilirubin 0.5, Total Protein 7.1, Albumin 3.1 L Labs 24H Laboratory Tests 2 11/30/16 16:34: Bedside Glucose (Misc Panel) 138H 11/30/16 20:49: Bedside Glucose (Misc Panel) 164H 12/01/16 07:34: Anion Gap 11, Glomerular Filtration Rate 53.1, Blood Urea Nitrogen 25H, Creatinine 1.41H, Sodium Level 141, Potassium Level 4.6, Chloride Level 106, Carbon Dioxide Level 24, Calcium Level 9.4, Aspartate Amino Transf (AST/SGOT) 21 , Alanine Aminotransferase (ALT/SGPT) 33, Alkaline Phosphatase 63, Total Bilirubin 0.5, Total Protein 7.1, Albumin 3.1L, Albumin/Globulin Ratio 0.78L 12/01/16 11:58: Bedside Glucose (Misc Panel) 81 Current Medications Current Medications Current Medications Amlodipine Besylate (Norvasc) 5 mg DAILY PO Last administered on 12/01/16t 09: 10; Start 11/29/16 at 09:00; Stop 12/29/16 at 08:59 Apixaban (Eliquis) 5 mg BID PO Last administered on 12/01/16 09:09; Start 11/28 at 21:00; Stop 12/05/16 at 20:59 Atorvastatin Calcium (Lipitor) 20 mg QHS PO Last administered on 11/30/16 21:45 ; Start 11/28/16 at 21:00; Stop 12/28/16 at 20:59 Clopidogrel Bisulfate (PLAVix) 75 mg QHS PO Last administered on 11/30/16 21:45 ; Start 11/29/16 at 21:00; Stop 12/29/16 at 20:59 Dextrose (Dextrose 50%) 25 ml ASDIRECTED PRN IV SEE LABEL COMMENTS; Start at 13:15; Stop 12/28/16 at 13:14 Duloxetine HCl (Cymbalta) 60 mg DAILY PO Last administered on 12/01/16 09:09; Start 11/29/16 at 09:00; Stop 12/29/16 at 08:59 Famotidine (Pepcid) 40 mg DAILY PO Last administered on 12/01/16 09:09; Start 11/29/16 at 09:00; Stop 12/29/16 at 08:59 Fenofibrate (Tricor) 145 mg QHS PO Last administered on 11/30/16 21:44; Start 11/28/16 at 21:00; Stop 12/28/16 at 20:59 Fentanyl (Duragesic) 50 mcg Q72H TOP Last administered on 11/29/16 12:06; Start 11/29/16 at 12:00; Stop 12/06/16 at 11:59 Gabapentin (Neurontin) 1,200 mg TID PO Last administered on 12/01/16 09:10; Start 11/28/16 at 16:00; Stop 12/28/16 at 15:59 Glucagon (Glucagon) 1 mg ASDIRECTED PRN SC SEE LABEL COMMENTS; Start 11/28/16 at 13:15; Stop 12/28/16 at 13:14 Glucose (Glucose) 16 GM ASDIRECTED PRN PO SEE LABEL COMMENTS; Start 11/28/16 at 13:15; Stop 12/28/16 at 13:14 Hydralazine HCl (Apresoline) 50 mg Q8H PO Last administered on 12/01/16 06:40 ; Start 11/28/16 at 14:00; Stop 12/28/16 at 13:59 Insulin Human Lispro (HumaLOG INSULIN) See Protocol Table AC SC Last administered on 12/01/16 09:08; Start 11/28/16 at 17:30; Stop 12/28/16 at 17:29 Insulin Human Lispro (HumaLOG INSULIN) See Protocol Table QHS SC ; Start at 21:00; Stop 12/28/16 at 20:59 Magnesium Oxide (Mag-Ox) 400 mg BID PO Last administered on 12/01/16 09:09; Start 11/29/16 at 09:00; Stop 12/29/16 at 08:59 Metoprolol Succinate (TopROL XL) 75 mg DAILY PO Last administered on 12/01/16 09:10; Start 11/29/16 at 09:00; Stop 12/29/16 at 08:59 Niacin (Niaspan) 2,000 mg QHS PO Last administered on 11/30/16 21:44; Start 11/28/16 at 21:00; Stop 12/28/16 at 20:59 Non-Formulary Medication Combigan 0.2-0.5%, 1 drop... BID OS ; Start 11/28/16 at 21:00; Stop 12/28/16 at 20:59; Status UNV Non-Formulary Medication Lumigan 50 drop/2.5 ml Cheryl.... QHS OU ; Start 11/28/16 at 21:00; Stop 12/28/16 at 20:59; Status UNV Non-Formulary Medication ( See Comment Field Below ) SEE COMMENTS SECTION ASDIRECTED XX ; Start 11/28/16 at 14:30; Stop 12/05/16 at 14:29 Oxycodone/ Acetaminophen (Percocet 5mg/ 325mg Tablet) 1 tab Q4HP PRN PO MODERATE PAIN (PS 5-7) Last administered on 11/30/16 21:44; Start 11/28/16 at 13: 00; Stop 12/05/16 at 12:59 Oxycodone/ Acetaminophen (Percocet 5mg/ 325mg Tablet) 2 tab Q4HP PRN PO SEVERE PAIN (PS 8-10) Last administered on 11/29/16 18:20; Start 11/28/16 at 13:00; Stop 12/05/16 at 12:59 Pantoprazole Sodium (Protonix) 40 mg DAILY PO Last administered on 12/01/16 09 :09; Start 11/29/16 at 09:00; Stop 12/29/16 at 08:59 Patient Own Medication (Patient'S Own Med) 1 ea BID OS Last administered on 09:11; Start 11/28/16 at 21:00; Stop 12/28/16 at 20:59 Patient Own Medication (Patient'S Own Med) 1 ea QHS OU Last administered on 11/30 21:00; Start 11/28/16 at 21:00; Stop 12/28/16 at 20:59 Polyethylene Glycol (Miralax) 1 pkt DAILY PRN PO CONSTIPATION; Start 11/28/16 at 13:00; Stop 12/28/16 at 12:59 Senna/Docusate Sodium (Senokot S) 1 tab BID PO Last administered on 12/01/16 09:09; Start 11/28/16 at 21:00; Stop 12/28/16 at 20:59 Sitagliptin Phosphate (Januvia) 100 mg DAILY PO Last administered on 12/01/16 09:09; Start 11/29/16 at 09:00; Stop 12/29/16 at 08:59 Vitamin D (Vitamin D) 1,000 units DAILY PO Last administered on 12/01/16 09:10 ; Start 11/29/16 at 09:00; Stop 12/29/16 at 08:59 BRIDGER GARCÍA MD Dec 01, 2016 12:49
[2016-12-01 14:00] VITALS: BP 145/66
[2016-12-01] MEDS ORDERED: BISACODYL 5 MG TAB PO PRN (15:00)
[2016-12-01] MEDS: PERCOCET 5MG/325MG TAB PO PRN ×2 (15:47→21:11)
[2016-12-01 20:00] VITALS: BP 134/60
[2016-12-01] MEDS: LUMIGAN EYE DROPS (PATIENT'S OWN MED) OU SCH (21:00)
[2016-12-01] MEDS: NIACIN SR (NIASPAN) 500 MG TAB PO SCH (21:11)
[2016-12-01] MEDS: ATORVASTATIN 20 MG TAB PO SCH (21:12)
[2016-12-01] MEDS: FENOFIBRATE 145 MG TAB (TRICOR) PO SCH (21:12)
[2016-12-01] MEDS: CLOPIDOGREL 75 MG TAB PO SCH (21:13)
[2016-12-02 06:00] VITALS: BP 142/66
[2016-12-02 06:03] VITALS: BP 138/60
[2016-12-02 06:06] VITALS: BP 128/60
[2016-12-02] MEDS: **hydrALAZINE** 50 MG TAB PO SCH ×3 (06:39→21:58)
[2016-12-02 07:46] LABS: MEAN CORPUSCULAR HEMOGLOBIN 31.1 pg (27.0-33.0); MEAN CORPUSCULAR HGB CONC 31.9 g/dl (32.0-36.5); MEAN CORPUSCULAR VOLUME 97.3 fl (80.0-96.0); RED CELL DISTRIBUTION WIDTH 14.9 % (11.5-14.5); WHITE BLOOD COUNT 6.2 K/mm3 (4.0-10.0)
[2016-12-02 07:48] LABS: ALBUMIN 3.2 GM/DL (3.2-5.2); ALBUMIN/GLOBULIN RATIO 0.84 (1.00-1.93); ALKALINE PHOSPHATASE 71 U/L (45-117); ALT/SGPT 29 U/L (12-78); ANION GAP 12 MEQ/L (8-16); AST/SGOT 22 U/L (15-37); BILIRUBIN,TOTAL 0.5 MG/DL (0.2-1.0); BLOOD UREA NITROGEN 22 MG/DL (7-18); CALCIUM LEVEL 9.2 MG/DL (8.8-10.2); CARBON DIOXIDE LEVEL 23 MEQ/L (21-32); CHLORIDE LEVEL 107 MEQ/L (98-107); CREATININE FOR GFR 1.23 MG/DL (0.70-1.30); GLOMERULAR FILTRATION RATE > 60.0 (>49); GLUCOSE, FASTING 143 MG/DL (80-110); POTASSIUM SERUM 4.4 MEQ/L (3.5-5.1); SODIUM LEVEL 142 MEQ/L (136-145)
[2016-12-02] MEDS: DULoxetine 30 MG CAP (CYMBALTA) PO SCH (08:50)
[2016-12-02] MEDS: METOPROLOL SUCC *XL* 25MG TAB (TopROL *XL*) PO SCH (08:50)
[2016-12-02] MEDS: HumaLOG INSULIN (NovoLOG) PER UNIT SC SCH ×4 (08:50→21:00)
[2016-12-02] MEDS: VITAMIN D 1,000 INTERNATIONAL UNITS TABLET PO SCH (08:50)
[2016-12-02] MEDS: PANTOPRAZOLE 40MG TAB (PROTONIX) PO SCH (08:51)
[2016-12-02] MEDS: MAGNESIUM OXIDE 400 MG TAB (MAG-OX) PO SCH ×2 (08:51→21:57)
[2016-12-02] MEDS: GABAPENTIN 400 MG CAP PO SCH ×3 (08:51→21:56)
[2016-12-02] MEDS: SENOKOT S TAB PO SCH ×2 (08:51→21:57)
[2016-12-02] MEDS: SITagliptin 50 MG TAB (JANUVIA) PO SCH (08:51)
[2016-12-02] MEDS: APIXABAN 5 MG TAB (ELIQUIS) PO SCH ×2 (08:51→21:57)
[2016-12-02] MEDS: FAMOTIDINE 20 MG TAB PO SCH (08:51)
[2016-12-02] MEDS: COMBIGAN EYE DROPS (PATIENT'S OWN MED) OS SCH ×2 (08:52→21:58)
[2016-12-02] MEDS: amLODIPine 5 MG TAB PO SCH (08:52)
[2016-12-02] MEDS: PERCOCET 5MG/325MG TAB PO PRN ×2 (08:54→17:00)
[2016-12-02] MEDS: fentaNYL 50 MCG/HR PATCH TOP SCH (12:31)
[2016-12-02 14:00] VITALS: BP 145/63
--- NOTE | 2016-12-02 14:53 | IPNPDOC ---
Audio Director Progress Note DATE OF SERVICE: 12/02/16 DATE OF ADMISSION: Nov 28, 2016 at 14:10 INPATIENT REHABILITATION ADMISSION DAY: #5 SUBJECTIVE: Patient is a 71-year-old white male with syncopal episode causing fall with spiral fracture of the distal left fibula with delayed surgery due to anticoagulation management for extensive peripheral vascular disease. Patient also with hypertension hyperlipidemia type 2 diabetes with acute on chronic renal disease and chronic back pain. This right-handed gentleman needs to improve his overall conditioning and learn adaptive mobilities ADLs and transfers to facilitate return home with his . Patient seen in his room this morning, and notes some of his chronic back pain and aching in the left ankle. No other complaints today. ALLERGIES: See Below MEDICATIONS: Reviewed, see below. OBJECTIVE: VITAL SIGNS: Please see below. PHYSICAL EXAMINATION: GENERAL: Tall muscular but overweight late middle-age white male who looks approximately stated age and is in mild muscle skeletal distress with a plaster splint on his left foot and ankle with good toe perfusion and sensation present. HEENT: Normocephalic/atraumatic. CARDIOVASCULAR: Irregularly irregular rate and rhythm. 2/4 bilateral radial pulses with good perfusion to nails. LUNGS: All hollis clear to auscultation. ABDOMEN: Obese, nontender, with normal bowel sounds in all quadrants. NEUROLOGICAL: Patient is alert and oriented 4. Speech is clear, coherent and appropriate. Affect is pleasant and cooperative with just the slightest amount of flattening. Memory is intact. Bilateral upper extremities and right lower extremity functionally intact for sensory motor. Sensorium intact and left lower extremity with a little bit guarding of the foot and ankle. SKIN: Grossly intact. LABORATORY DATA: Reviewed. Please see below. MICROBIOLOGY: Please see below. IMAGING: No new imaging. DVT prophylaxis ordered?: SHWETA hose and Eliquis 5mg bid. ASSESSMENT AND PLAN: 1. Rehabilitation of left ankle fracture with open reduction internal fixation: Patient challenged by peripheral vascular disease and chronic back pain is in a program of physical and occupational therapy to learn Adaptive mobility and ADLs. I will reassess estimated length of stay based on patient performance in physical and occupational therapy today. Currently looking at 14-17 days for patient to line appropriate adaption return home with . 2. Atrial fibrillation: Patient continues in this arrhythmia that maintaining good blood pressure and overall appears to be good perfusion though he does have extensive peripheral vascular disease. We will continue to monitor his cardiovascular function and the potential impact on skin while patient is less mobile. 3. Type 2 diabetes mellitus: Fasting blood sugar 143 this morning. Renal function on CMP with BUN of 22 and creatinine 1.25 are improved. 4. Anemia: Very mild and stable at this point with hemoglobin and hematocrit 12.1 and 37.8%. 5. Hepatitis Panel: Negative for all results. TIME SPENT: Chart Review, examination and documentation require greater than 25 minutes. Allergies Coded Allergies: No Known Allergies (Verified , 07/02/04) Vital Signs Vital Signs Date Time Temp Pulse Resp B/P (MAP) Pulse Ox O2 Delivery O2 Flow Rate FiO2 12/02/16 14:00 98.4 85 18 145/63 (90) 93 Room Air Laboratory Data CBC/BMP Laboratory Tests 12/02/16 06:55 Red Blood Count 3.88 L, Mean Corpuscular Volume 97.3 H, Mean Corpuscular Hemoglobin 31.1, Mean Corpuscular Hemoglobin Concent 31.9 L, Red Cell Distribution Width 14.9 H, Calcium Level 9.2, Aspartate Amino Transf (AST/SGOT) 22, Alanine Aminotransferase (ALT/SGPT) 29, Alkaline Phosphatase 71, Total Bilirubin 0.5, Total Protein 7.0, Albumin 3.2 Labs 24H Laboratory Tests 2 12/01/16 16:22: Bedside Glucose (Misc Panel) 127H 12/01/16 20:46: Bedside Glucose (Misc Panel) 167H 12/02/16 06:55: Anion Gap 12, Glomerular Filtration Rate > 60.0, Blood Urea Nitrogen 22H, Creatinine 1.23, Sodium Level 142, Potassium Level 4.4, Chloride Level 107, Carbon Dioxide Level 23, Calcium Level 9.2, Aspartate Amino Transf (AST/SGOT) 22 , Alanine Aminotransferase (ALT/SGPT) 29, Alkaline Phosphatase 71, Total Bilirubin 0.5, Total Protein 7.0, Albumin 3.2, Albumin/Globulin Ratio 0.84L 12/02/16 11:55: Bedside Glucose (Misc Panel) 81 Current Medications Current Medications Current Medications Amlodipine Besylate (Norvasc) 5 mg DAILY PO Last administered on 12/02/16t 08: 52; Start 11/29/16 at 09:00; Stop 12/29/16 at 08:59 Apixaban (Eliquis) 5 mg BID PO Last administered on 12/02/16 08:51; Start 11/28 at 21:00; Stop 12/05/16 at 20:59 Atorvastatin Calcium (Lipitor) 20 mg QHS PO Last administered on 12/01/16 21: 12; Start 11/28/16 at 21:00; Stop 12/28/16 at 20:59 Bisacodyl (Dulcolax Tab) 10 mg DAILYPRN PRN PO CONSTIPATION; Start 12/01/16 at 15:00; Stop 12/31/16 at 14:59 Clopidogrel Bisulfate (PLAVix) 75 mg QHS PO Last administered on 12/01/16 21: 13; Start 11/29/16 at 21:00; Stop 12/29/16 at 20:59 Dextrose (Dextrose 50%) 25 ml ASDIRECTED PRN IV SEE LABEL COMMENTS; Start at 13:15; Stop 12/28/16 at 13:14 Duloxetine HCl (Cymbalta) 60 mg DAILY PO Last administered on 12/02/16 08:50; Start 11/29/16 at 09:00; Stop 12/29/16 at 08:59 Famotidine (Pepcid) 40 mg DAILY PO Last administered on 12/02/16 08:51; Start 11/29/16 at 09:00; Stop 12/29/16 at 08:59 Fenofibrate (Tricor) 145 mg QHS PO Last administered on 12/01/16 21:12; Start 11/28/16 at 21:00; Stop 12/28/16 at 20:59 Fentanyl (Duragesic) 50 mcg Q72H TOP Last administered on 12/02/16 12:31; Start 11/29/16 at 12:00; Stop 12/06/16 at 11:59 Gabapentin (Neurontin) 1,200 mg TID PO Last administered on 12/02/16 08:51; Start 11/28/16 at 16:00; Stop 12/28/16 at 15:59 Glucagon (Glucagon) 1 mg ASDIRECTED PRN SC SEE LABEL COMMENTS; Start 11/28/16 at 13:15; Stop 12/28/16 at 13:14 Glucose (Glucose) 16 GM ASDIRECTED PRN PO SEE LABEL COMMENTS; Start 11/28/16 at 13:15; Stop 12/28/16 at 13:14 Hydralazine HCl (Apresoline) 50 mg Q8H PO Last administered on 12/02/16 06:39 ; Start 11/28/16 at 14:00; Stop 12/28/16 at 13:59 Insulin Human Lispro (HumaLOG INSULIN) See Protocol Table AC SC Last administered on 12/02/16 08:50; Start 11/28/16 at 17:30; Stop 12/28/16 at 17:29 Insulin Human Lispro (HumaLOG INSULIN) See Protocol Table QHS SC ; Start at 21:00; Stop 12/28/16 at 20:59 Magnesium Oxide (Mag-Ox) 400 mg BID PO Last administered on 12/02/16 08:51; Start 11/29/16 at 09:00; Stop 12/29/16 at 08:59 Metoprolol Succinate (TopROL XL) 75 mg DAILY PO Last administered on 12/02/16 08:50; Start 11/29/16 at 09:00; Stop 12/29/16 at 08:59 Niacin (Niaspan) 2,000 mg QHS PO Last administered on 12/01/16 21:11; Start at 21:00; Stop 12/28/16 at 20:59 Non-Formulary Medication Combigan 0.2-0.5%, 1 drop... BID OS ; Start 11/28/16 at 21:00; Stop 12/28/16 at 20:59; Status UNV Non-Formulary Medication Lumigan 50 drop/2.5 ml Cheryl.... QHS OU ; Start 11/28/16 at 21:00; Stop 12/28/16 at 20:59; Status UNV Non-Formulary Medication ( See Comment Field Below ) SEE COMMENTS SECTION ASDIRECTED XX ; Start 11/28/16 at 14:30; Stop 12/05/16 at 14:29 Oxycodone/ Acetaminophen (Percocet 5mg/ 325mg Tablet) 1 tab Q4HP PRN PO MODERATE PAIN (PS 5-7) Last administered on 12/02/16 08:54; Start 11/28/16 at 13 :00; Stop 12/05/16 at 12:59 Oxycodone/ Acetaminophen (Percocet 5mg/ 325mg Tablet) 2 tab Q4HP PRN PO SEVERE PAIN (PS 8-10) Last administered on 11/29/16 18:20; Start 11/28/16 at 13:00; Stop 12/05/16 at 12:59 Pantoprazole Sodium (Protonix) 40 mg DAILY PO Last administered on 12/02/16 08 :51; Start 11/29/16 at 09:00; Stop 12/29/16 at 08:59 Patient Own Medication (Patient'S Own Med) 1 ea BID OS Last administered on 08:52; Start 11/28/16 at 21:00; Stop 12/28/16 at 20:59 Patient Own Medication (Patient'S Own Med) 1 ea QHS OU Last administered on 21:00; Start 11/28/16 at 21:00; Stop 12/28/16 at 20:59 Polyethylene Glycol (Miralax) 1 pkt DAILY PRN PO CONSTIPATION; Start 11/28/16 at 13:00; Stop 12/28/16 at 12:59 Senna/Docusate Sodium (Senokot S) 1 tab BID PO Last administered on 12/02/16 08:51; Start 11/28/16 at 21:00; Stop 12/28/16 at 20:59 Sitagliptin Phosphate (Januvia) 100 mg DAILY PO Last administered on 12/02/16 08:51; Start 11/29/16 at 09:00; Stop 12/29/16 at 08:59 Vitamin D (Vitamin D) 1,000 units DAILY PO Last administered on 12/02/16 08:50 ; Start 11/29/16 at 09:00; Stop 12/29/16 at 08:59 BRIDGER GARCÍA MD Dec 02, 2016 14:53
[2016-12-02 20:15] VITALS: BP 142/65
[2016-12-02] MEDS: NIACIN SR (NIASPAN) 500 MG TAB PO SCH (21:56)
[2016-12-02] MEDS: FENOFIBRATE 145 MG TAB (TRICOR) PO SCH (21:56)
[2016-12-02] MEDS: ATORVASTATIN 20 MG TAB PO SCH (21:56)
[2016-12-02] MEDS: CLOPIDOGREL 75 MG TAB PO SCH (21:57)
[2016-12-02] MEDS: LUMIGAN EYE DROPS (PATIENT'S OWN MED) OU SCH (21:58)
[2016-12-03] MEDS: **hydrALAZINE** 50 MG TAB PO SCH ×3 (05:58→22:23)
[2016-12-03 06:00] VITALS: BP 136/52
[2016-12-03 06:22] VITALS: BP_SYST 130; BP_SYST 136; BP_SYST 181; BP_DIAS 53; BP_DIAS 64; BP_DIAS 79
[2016-12-03 06:49] LABS: MEAN CORPUSCULAR HEMOGLOBIN 31.2 pg (27.0-33.0); MEAN CORPUSCULAR HGB CONC 32.1 g/dl (32.0-36.5); MEAN CORPUSCULAR VOLUME 97.4 fl (80.0-96.0); RED CELL DISTRIBUTION WIDTH 15.1 % (11.5-14.5); WHITE BLOOD COUNT 5.4 K/mm3 (4.0-10.0)
[2016-12-03 07:12] LABS: ALBUMIN 2.9 GM/DL (3.2-5.2); ALBUMIN/GLOBULIN RATIO 0.73 (1.00-1.93); ALKALINE PHOSPHATASE 72 U/L (45-117); ALT/SGPT 29 U/L (12-78); ANION GAP 7 MEQ/L (8-16); AST/SGOT 29 U/L (15-37); BILIRUBIN,TOTAL 0.5 MG/DL (0.2-1.0); BLOOD UREA NITROGEN 21 MG/DL (7-18); CALCIUM LEVEL 9.3 MG/DL (8.8-10.2); CARBON DIOXIDE LEVEL 27 MEQ/L (21-32); CHLORIDE LEVEL 106 MEQ/L (98-107); CREATININE FOR GFR 1.22 MG/DL (0.70-1.30); GLOMERULAR FILTRATION RATE > 60.0 (>49); GLUCOSE, FASTING 127 MG/DL (80-110); POTASSIUM SERUM 4.2 MEQ/L (3.5-5.1); SODIUM LEVEL 140 MEQ/L (136-145); TOTAL PROTEIN 6.9 GM/DL (6.4-8.2)
[2016-12-03] MEDS: HumaLOG INSULIN (NovoLOG) PER UNIT SC SCH ×4 (08:16→20:31)
[2016-12-03] MEDS: GABAPENTIN 400 MG CAP PO SCH ×3 (08:17→20:27)
[2016-12-03] MEDS: SITagliptin 50 MG TAB (JANUVIA) PO SCH (08:17)
[2016-12-03] MEDS: VITAMIN D 1,000 INTERNATIONAL UNITS TABLET PO SCH (08:17)
[2016-12-03] MEDS: METOPROLOL SUCC *XL* 25MG TAB (TopROL *XL*) PO SCH (08:17)
[2016-12-03] MEDS: FAMOTIDINE 20 MG TAB PO SCH (08:17)
[2016-12-03] MEDS: APIXABAN 5 MG TAB (ELIQUIS) PO SCH ×2 (08:17→20:27)
[2016-12-03] MEDS: PANTOPRAZOLE 40MG TAB (PROTONIX) PO SCH (08:17)
[2016-12-03] MEDS: DULoxetine 30 MG CAP (CYMBALTA) PO SCH (08:17)
[2016-12-03] MEDS: amLODIPine 5 MG TAB PO SCH (08:18)
[2016-12-03] MEDS: MAGNESIUM OXIDE 400 MG TAB (MAG-OX) PO SCH ×2 (08:18→20:27)
[2016-12-03] MEDS: COMBIGAN EYE DROPS (PATIENT'S OWN MED) OS SCH ×2 (08:19→22:21)
[2016-12-03] MEDS: SENOKOT S TAB PO SCH ×2 (08:20→20:31)
[2016-12-03] MEDS: PERCOCET 5MG/325MG TAB PO PRN (10:09)
[2016-12-03 13:55] VITALS: BP 134/63
[2016-12-03 20:04] VITALS: BP 150/62
[2016-12-03] MEDS: CLOPIDOGREL 75 MG TAB PO SCH (20:27)
[2016-12-03] MEDS: ATORVASTATIN 20 MG TAB PO SCH (20:27)
[2016-12-03] MEDS: FENOFIBRATE 145 MG TAB (TRICOR) PO SCH (20:31)
[2016-12-03] MEDS: NIACIN SR (NIASPAN) 500 MG TAB PO SCH (20:31)
[2016-12-03] MEDS: LUMIGAN EYE DROPS (PATIENT'S OWN MED) OU SCH (22:21)
[2016-12-04 06:00] VITALS: BP 160/72
[2016-12-04] MEDS: **hydrALAZINE** 50 MG TAB PO SCH ×3 (06:09→20:36)
[2016-12-04 06:11] VITALS: BP_SYST 142; BP_SYST 158; BP_SYST 160; BP_DIAS 68; BP_DIAS 72; BP_DIAS 78
[2016-12-04 06:41] LABS: MEAN CORPUSCULAR HEMOGLOBIN 31.5 pg (27.0-33.0); MEAN CORPUSCULAR VOLUME 98.6 fl (80.0-96.0); RED CELL DISTRIBUTION WIDTH 15.2 % (11.5-14.5); WHITE BLOOD COUNT 5.2 K/mm3 (4.0-10.0)
[2016-12-04 07:25] LABS: ALBUMIN 2.9 GM/DL (3.2-5.2); ALBUMIN/GLOBULIN RATIO 0.67 (1.00-1.93); ALKALINE PHOSPHATASE 78 U/L (45-117); ALT/SGPT 25 U/L (12-78); ANION GAP 11 MEQ/L (8-16); AST/SGOT 20 U/L (15-37); BILIRUBIN,TOTAL 0.4 MG/DL (0.2-1.0); BLOOD UREA NITROGEN 18 MG/DL (7-18); CALCIUM LEVEL 9.2 MG/DL (8.8-10.2); CARBON DIOXIDE LEVEL 22 MEQ/L (21-32); CHLORIDE LEVEL 109 MEQ/L (98-107); CREATININE FOR GFR 1.25 MG/DL (0.70-1.30); GLOMERULAR FILTRATION RATE > 60.0 (>49); GLUCOSE, FASTING 109 MG/DL (80-110); POTASSIUM SERUM 4.2 MEQ/L (3.5-5.1); SODIUM LEVEL 142 MEQ/L (136-145); TOTAL PROTEIN 7.2 GM/DL (6.4-8.2)
[2016-12-04] MEDS: SITagliptin 50 MG TAB (JANUVIA) PO SCH (08:07)
[2016-12-04] MEDS: GABAPENTIN 400 MG CAP PO SCH ×3 (08:07→20:34)
[2016-12-04] MEDS: SENOKOT S TAB PO SCH ×2 (08:07→20:35)
[2016-12-04] MEDS: FAMOTIDINE 20 MG TAB PO SCH (08:07)
[2016-12-04] MEDS: DULoxetine 30 MG CAP (CYMBALTA) PO SCH (08:07)
[2016-12-04] MEDS: HumaLOG INSULIN (NovoLOG) PER UNIT SC SCH ×4 (08:07→20:36)
[2016-12-04] MEDS: amLODIPine 5 MG TAB PO SCH (08:08)
[2016-12-04] MEDS: METOPROLOL SUCC *XL* 25MG TAB (TopROL *XL*) PO SCH (08:08)
[2016-12-04] MEDS: PANTOPRAZOLE 40MG TAB (PROTONIX) PO SCH (08:08)
[2016-12-04] MEDS: VITAMIN D 1,000 INTERNATIONAL UNITS TABLET PO SCH (08:08)
[2016-12-04] MEDS: MAGNESIUM OXIDE 400 MG TAB (MAG-OX) PO SCH ×2 (08:08→20:35)
[2016-12-04] MEDS: APIXABAN 5 MG TAB (ELIQUIS) PO SCH ×2 (08:08→20:35)
[2016-12-04] MEDS: COMBIGAN EYE DROPS (PATIENT'S OWN MED) OS SCH ×2 (08:09→20:37)
[2016-12-04 14:00] VITALS: BP 160/70
[2016-12-04] MEDS: PERCOCET 5MG/325MG TAB PO PRN (14:19)
[2016-12-04 20:00] VITALS: BP 147/67
[2016-12-04] MEDS: NIACIN SR (NIASPAN) 500 MG TAB PO SCH (20:34)
[2016-12-04] MEDS: CLOPIDOGREL 75 MG TAB PO SCH (20:35)
[2016-12-04] MEDS: FENOFIBRATE 145 MG TAB (TRICOR) PO SCH (20:35)
[2016-12-04] MEDS: ATORVASTATIN 20 MG TAB PO SCH (20:35)
[2016-12-04] MEDS: LUMIGAN EYE DROPS (PATIENT'S OWN MED) OU SCH (20:38)
[2016-12-05 06:00] VITALS: BP 146/75
[2016-12-05 06:05] VITALS: BP 157/73
[2016-12-05 06:10] VITALS: BP 145/66
[2016-12-05] MEDS: **hydrALAZINE** 50 MG TAB PO SCH ×3 (07:13→22:35)
[2016-12-05 08:04] LABS: MEAN CORPUSCULAR HEMOGLOBIN 31.4 pg (27.0-33.0); MEAN CORPUSCULAR HGB CONC 31.8 g/dl (32.0-36.5); MEAN CORPUSCULAR VOLUME 98.7 fl (80.0-96.0); RED CELL DISTRIBUTION WIDTH 15.2 % (11.5-14.5)
[2016-12-05 08:17] LABS: ALBUMIN/GLOBULIN RATIO 0.73 (1.00-1.93); ALKALINE PHOSPHATASE 78 U/L (45-117); ALT/SGPT 28 U/L (12-78); ANION GAP 9 MEQ/L (8-16); AST/SGOT 52 U/L (15-37); BILIRUBIN,TOTAL 0.5 MG/DL (0.2-1.0); BLOOD UREA NITROGEN 17 MG/DL (7-18); CALCIUM LEVEL 9.6 MG/DL (8.8-10.2); CARBON DIOXIDE LEVEL 24 MEQ/L (21-32); CHLORIDE LEVEL 108 MEQ/L (98-107); CREATININE FOR GFR 1.23 MG/DL (0.70-1.30); GLOMERULAR FILTRATION RATE > 60.0 (>49); GLUCOSE, FASTING 141 MG/DL (80-110); SODIUM LEVEL 141 MEQ/L (136-145); TOTAL PROTEIN 7.1 GM/DL (6.4-8.2)
[2016-12-05 08:24] LABS: POTASSIUM SERUM 5.2 MEQ/L (3.5-5.1)
[2016-12-05] MEDS: HumaLOG INSULIN (NovoLOG) PER UNIT SC SCH ×4 (08:41→21:00)
[2016-12-05] MEDS: MAGNESIUM OXIDE 400 MG TAB (MAG-OX) PO SCH ×2 (08:42→22:35)
[2016-12-05] MEDS: amLODIPine 5 MG TAB PO SCH (08:42)
[2016-12-05] MEDS: FAMOTIDINE 20 MG TAB PO SCH (08:42)
[2016-12-05] MEDS: PANTOPRAZOLE 40MG TAB (PROTONIX) PO SCH (08:42)
[2016-12-05] MEDS: SITagliptin 50 MG TAB (JANUVIA) PO SCH (08:42)
[2016-12-05] MEDS: VITAMIN D 1,000 INTERNATIONAL UNITS TABLET PO SCH (08:42)
[2016-12-05] MEDS: SENOKOT S TAB PO SCH ×3 (08:42→21:00)
[2016-12-05] MEDS: METOPROLOL SUCC *XL* 25MG TAB (TopROL *XL*) PO SCH (08:43)
[2016-12-05] MEDS: GABAPENTIN 400 MG CAP PO SCH ×3 (08:43→22:34)
[2016-12-05] MEDS: APIXABAN 5 MG TAB (ELIQUIS) PO SCH (08:44)
[2016-12-05] MEDS: COMBIGAN EYE DROPS (PATIENT'S OWN MED) OS SCH ×2 (08:44→21:00)
[2016-12-05] MEDS: DULoxetine 30 MG CAP (CYMBALTA) PO SCH (08:44)
--- NOTE | 2016-12-05 11:34 | IPNPDOC ---
Date Seen The patient was seen on 12/05/16. Progress Note HPI: 71year oldM S/P left ankle fracture related to syncopal episodes felt related to Orthostatic hypotension/ORIF left ankle as per Orthopedics transferred to Dr Concepcion SOUZA 11/28/16. No acute medical complaints today. Pt states pain has been controlled. Denies any fevers, chills, weakness, fatigue, Headache, Chest Pain, Shortness of breath, cough, palpitations, abdominal pain, N/V/D or changes in bowel or bladder habits. PMHx: HTN HLD NIDDM chronic LBP/chronic pain Anxiety depression PVD/Stents. Semel. GERD CKD3 Orthostatic hypotension GERD Vitamin D Def Hypomagnesemia PSHX: 1. Bilateral lower extremity bypass surgery. 2. AAA repair. 3. Appendectomy. 4. Cholecystectomy. 5. Multiple surgeries for bowel obstruction PE: GEN: 71yoM, appears stated age. Well-nourished, well developed. No acute distress. Alert and oriented x 3. Pleasant, interactive. HEENT: Normocephalic, atraumatic. Sclera are nonicteric. Conjunctiva without injection. Nose midline. No facial asymmetry. Moist mucous membranes. Dentition fair. Pharynx pink and moist. Neck supple, trachea midline. CHEST: Regular rate and rhythm, +S1, +S2 LUNGS: Clear to auscultation bilaterally. No wheezes, rales, or rhonchi. ABD: Round, soft, non-tender, non-distended. +Bowel sounds throughout. No rebound or guarding. No costovertebral angle tenderness. EXT: Pulses 2+ bilaterally dorsalis pedis and radial. No Rt lower extremity edema appreciated. Cast present LLE. SKIN: [place], dry, warm. No rashes. NEURO: No focal deficits appreciated. A&P: 71year oldM S/P left ankle fracture/ORIF left ankle as per Orthopedics [facility] 11/28/16. 1. Left ankle fracture/ORIF as per Orthopedics. Mgmt as per Dr Javier/LIBBY. PT/OT as per Dr Javier. Pain control as per Dr Javier. Bowel care as per Dr Javier. DVT prophylaxis. Eliquis. 2. Syncopal episodes felt related to Orthostatic hypotension. No recurrence on current BP meds. Monitor. 3. HTN. Continue Hydralazine, metoprolol, amlodipine. BP trend appears elevated with automatic cuff however manual BPs indicate control. Monitor Orthostatic VS. Manual BPs 4. PVD/Stents. Evaluated as per Dr Mclain during admission. Continue with Eliquis /Plavix. 5. GERD. PPI/H2 braydon 6. HLD. Lipitor/Tricor/Niaspan. 7. Anxiety/depression. Cymbalta. 8. Chronic pain/LBP. Continue Gabapentin. 9. CKD3. Monitor BMP. Baseline appears to be 1.4-1.7. 10. NIDDM. CC diet. Januvia. SSI. 11. hypomagnesemia. Cont po supplement. mag level WNL. 12. Elevated LFT. Resolved. Monitor CMP. Hepatitis profile neg. 13. Anemia. Likely secondary to CKD. Fe studies/B12/folate. Stool OB neg. Baseline appears to be 12-13. 14. Thrombocytosis. Possibly reactive. Add peripheral smear. 15. Hyperkalemia. specimen was hemolyzed. Recheck level. VS, I&O, 24H, [facility] Vital Signs/I&O Vital Signs Date Time Temp Pulse Resp B/P (MAP) Pulse Ox O2 Delivery O2 Flow Rate FiO2 12/05/16 08:42 91 146/75 12/05/16 07:50 Room Air 12/05/16 06:00 98.7 17 99 I&O- Last 24 Hours up to 6 AM 12/05/16 06:00 Intake Total 1440 ml Output Total 1800 ml Balance -360 ml Laboratory Data 24H LABS Laboratory Tests 2 12/04/16 16:16: Bedside Glucose (Misc Panel) 112 12/04/16 20:21: Bedside Glucose (Misc Panel) 164H 12/05/16 07:43: Anion Gap 9, Glomerular Filtration Rate > 60.0, Blood Urea Nitrogen 17, Creatinine 1.23, Sodium Level 141, Potassium Level 5.2H, Chloride Level 108H, Carbon Dioxide Level 24, Calcium Level 9.6, Aspartate Amino Transf (AST/SGOT) 52H, Alanine Aminotransferase (ALT/SGPT) 28, Alkaline Phosphatase 78, Total Bilirubin 0.5, Total Protein 7.1, Albumin 3.0L, Albumin/Globulin Ratio 0.73L CBC/BMP Laboratory Tests 12/05/16 07:43 Red Blood Count 3.67 L, Mean Corpuscular Volume 98.7 H, Mean Corpuscular Hemoglobin 31.4, Mean Corpuscular Hemoglobin Concent 31.8 L, Red Cell Distribution Width 15.2 H, Calcium Level 9.6, Aspartate Amino Transf (AST/SGOT) 52 H, Alanine Aminotransferase (ALT/SGPT) 28, Alkaline Phosphatase 78, Total Bilirubin 0.5, Total Protein 7.1, Albumin 3.0 L Kaitlin Mckinnon Dec 05, 2016 11:34
[2016-12-05 14:00] VITALS: BP 152/76
[2016-12-05] MEDS: fentaNYL 50 MCG/HR PATCH TOP SCH (14:01)
--- NOTE | 2016-12-05 17:04 | IPNPDOC ---
Realtime Reporter Progress Note DATE OF SERVICE: 12/05/16 DATE OF ADMISSION: Nov 28, 2016 at 14:10 INPATIENT REHABILITATION ADMISSION DAY: #8 SUBJECTIVE: Patient is a 71-year-old white male with syncopal episode causing fall with spiral fracture of the distal left fibula with delayed surgery due to anticoagulation management for extensive peripheral vascular disease. Patient also with hypertension hyperlipidemia type 2 diabetes with acute on chronic renal disease and chronic back pain. This right-handed gentleman needs to improve his overall conditioning and learn adaptive mobilities ADLs and transfers to facilitate return home with his . Patient seen in his room this morning, and notes some of his chronic back pain and aching in the left ankle. No other complaints today. ALLERGIES: See Below MEDICATIONS: Reviewed, see below. OBJECTIVE: VITAL SIGNS: Please see below. PHYSICAL EXAMINATION: GENERAL: Tall muscular but overweight late middle-age white male who looks approximately stated age and is in mild muscle skeletal distress with a plaster splint on his left foot and ankle with good toe perfusion and sensation present. HEENT: Normocephalic/atraumatic. CARDIOVASCULAR: Irregularly irregular rate and rhythm. 2/4 bilateral radial pulses with good perfusion to nails. LUNGS: All hollis clear to auscultation. ABDOMEN: Obese, nontender, with normal bowel sounds in all quadrants. NEUROLOGICAL: Patient is alert and oriented 4. Speech is clear, coherent and appropriate. Affect is pleasant and cooperative with just the slightest amount of flattening. Memory is intact. Bilateral upper extremities and right lower extremity functionally intact for sensory motor. Sensorium intact and left lower extremity with a little bit guarding of the foot and ankle. SKIN: Grossly intact. LABORATORY DATA: Reviewed. Please see below. MICROBIOLOGY: Please see below. IMAGING: No new imaging. DVT prophylaxis ordered?: SHWETA hose and Eliquis 5mg bid. ASSESSMENT AND PLAN: 1. Rehabilitation of left ankle fracture with open reduction internal fixation: Patient challenged by peripheral vascular disease and chronic back pain is in a program of physical and occupational therapy to learn Adaptive mobility and ADLs. Patient reviewed in REHAB. TEAM ROUNDS today: Patient has completed PT/OT goals and we will discharge him to home tomorrow with Homecare (Nursing, PT, OT). 2. Atrial fibrillation: Patient continues in this arrhythmia that maintaining good blood pressure and overall appears to be good perfusion though he does have extensive peripheral vascular disease. We will continue to monitor his cardiovascular function and the potential impact on skin while patient is less mobile. 3. Type 2 diabetes mellitus: Fasting blood sugar 114 this morning. Renal function on CMP with BUN of 17 and creatinine 1.23 are improved. 4. Anemia: Very mild and stable at this point with hemoglobin and hematocrit 11.5 and 36.2%. 5. Hepatitis Panel: Negative for all results. TIME SPENT: Chart Review, examination and documentation require greater than 25 minutes. Allergies Coded Allergies: No Known Allergies (Verified , 07/02/04) Vital Signs Vital Signs Date Time Temp Pulse Resp B/P (MAP) Pulse Ox O2 Delivery O2 Flow Rate FiO2 12/05/16 14:35 18 Room Air 12/05/16 14:00 98.6 72 152/76 (101) 12/05/16 06:00 99 Laboratory Data CBC/BMP Laboratory Tests 12/05/16 07:43 Red Blood Count 3.67 L, Mean Corpuscular Volume 98.7 H, Mean Corpuscular Hemoglobin 31.4, Mean Corpuscular Hemoglobin Concent 31.8 L, Red Cell Distribution Width 15.2 H, Calcium Level 9.6, Aspartate Amino Transf (AST/SGOT) 52 H, Alanine Aminotransferase (ALT/SGPT) 28, Alkaline Phosphatase 78, Total Bilirubin 0.5, Total Protein 7.1, Albumin 3.0 L 12/05/16 14:33 Labs 24H Laboratory Tests 2 12/04/16 20:21: Bedside Glucose (Misc Panel) 164H 12/05/16 07:43: Anion Gap 9, Glomerular Filtration Rate > 60.0, Blood Urea Nitrogen 17, Creatinine 1.23, Sodium Level 141, Potassium Level 5.2H, Chloride Level 108H, Carbon Dioxide Level 24, Calcium Level 9.6, Aspartate Amino Transf (AST/SGOT) 52H, Alanine Aminotransferase (ALT/SGPT) 28, Alkaline Phosphatase 78, Total Bilirubin 0.5, Total Protein 7.1, Albumin 3.0L, Albumin/Globulin Ratio 0.73L 12/05/16 11:56: Bedside Glucose (Misc Panel) 88 Current Medications Current Medications Current Medications Amlodipine Besylate (Norvasc) 5 mg DAILY PO Last administered on 12/05/16t 08: 42; Start 11/29/16 at 09:00; Stop 12/29/16 at 08:59 Apixaban (Eliquis) 5 mg BID PO Last administered on 12/05/16 08:44; Start 11/28 at 21:00; Stop 12/05/16 at 20:59 Atorvastatin Calcium (Lipitor) 20 mg QHS PO Last administered on 12/04/16 20: 35; Start 11/28/16 at 21:00; Stop 12/28/16 at 20:59 Bisacodyl (Dulcolax Tab) 10 mg DAILYPRN PRN PO CONSTIPATION; Start 12/01/16 at 15:00; Stop 12/31/16 at 14:59 Clopidogrel Bisulfate (PLAVix) 75 mg QHS PO Last administered on 12/04/16 20: 35; Start 11/29/16 at 21:00; Stop 12/29/16 at 20:59 Dextrose (Dextrose 50%) 25 ml ASDIRECTED PRN IV SEE LABEL COMMENTS; Start at 13:15; Stop 12/28/16 at 13:14 Duloxetine HCl (Cymbalta) 60 mg DAILY PO Last administered on 12/05/16 08:44; Start 11/29/16 at 09:00; Stop 12/29/16 at 08:59 Famotidine (Pepcid) 40 mg DAILY PO Last administered on 12/05/16 08:42; Start 11/29/16 at 09:00; Stop 12/29/16 at 08:59 Fenofibrate (Tricor) 145 mg QHS PO Last administered on 12/04/16 20:35; Start 11/28/16 at 21:00; Stop 12/28/16 at 20:59 Fentanyl (Duragesic) 50 mcg Q72H TOP Last administered on 12/05/16 14:01; Start 11/29/16 at 12:00; Stop 12/10/16 at 23:55 Gabapentin (Neurontin) 1,200 mg TID PO Last administered on 12/05/16 16:34; Start 11/28/16 at 16:00; Stop 12/28/16 at 15:59 Glucagon (Glucagon) 1 mg ASDIRECTED PRN SC SEE LABEL COMMENTS; Start 11/28/16 at 13:15; Stop 12/28/16 at 13:14 Glucose (Glucose) 16 GM ASDIRECTED PRN PO SEE LABEL COMMENTS; Start 11/28/16 at 13:15; Stop 12/28/16 at 13:14 Hydralazine HCl (Apresoline) 50 mg Q8H PO Last administered on 12/05/16 13:59 ; Start 11/28/16 at 14:00; Stop 12/28/16 at 13:59 Insulin Human Lispro (HumaLOG INSULIN) See Protocol Table AC SC Last administered on 12/05/16 08:41; Start 11/28/16 at 17:30; Stop 12/28/16 at 17:29 Insulin Human Lispro (HumaLOG INSULIN) See Protocol Table QHS SC ; Start at 21:00; Stop 12/28/16 at 20:59 Magnesium Oxide (Mag-Ox) 400 mg BID PO Last administered on 12/05/16 08:42; Start 11/29/16 at 09:00; Stop 12/29/16 at 08:59 Metoprolol Succinate (TopROL XL) 75 mg DAILY PO Last administered on 12/05/16 08:43; Start 11/29/16 at 09:00; Stop 12/29/16 at 08:59 Niacin (Niaspan) 2,000 mg QHS PO Last administered on 12/04/16 20:34; Start at 21:00; Stop 12/28/16 at 20:59 Non-Formulary Medication Combigan 0.2-0.5%, 1 drop... BID OS ; Start 11/28/16 at 21:00; Stop 12/28/16 at 20:59; Status UNV Non-Formulary Medication Lumigan 50 drop/2.5 ml Cheryl.... QHS OU ; Start 11/28/16 at 21:00; Stop 12/28/16 at 20:59; Status UNV Non-Formulary Medication ( See Comment Field Below ) SEE COMMENTS SECTION ASDIRECTED XX Last administered on 12/05/16 14:10; Start 11/28/16 at 14:30; Stop 12/10/16 at 23:55 Oxycodone/ Acetaminophen (Percocet 5mg/ 325mg Tablet) 1 tab Q4HP PRN PO MODERATE PAIN (PS 5-7) Last administered on 12/04/16 14:19; Start 11/28/16 at 13 :00; Stop 12/10/16 at 23:55 Oxycodone/ Acetaminophen (Percocet 5mg/ 325mg Tablet) 2 tab Q4HP PRN PO SEVERE PAIN (PS 8-10) Last administered on 11/29/16 18:20; Start 11/28/16 at 13:00; Stop 12/10/16 at 23:55 Pantoprazole Sodium (Protonix) 40 mg DAILY PO Last administered on 12/05/16 08 :42; Start 11/29/16 at 09:00; Stop 12/29/16 at 08:59 Patient Own Medication (Patient'S Own Med) 1 ea BID OS Last administered on 08:44; Start 11/28/16 at 21:00; Stop 12/28/16 at 20:59 Patient Own Medication (Patient'S Own Med) 1 ea QHS OU Last administered on 20:38; Start 11/28/16 at 21:00; Stop 12/28/16 at 20:59 Polyethylene Glycol (Miralax) 1 pkt DAILY PRN PO CONSTIPATION; Start 11/28/16 at 13:00; Stop 12/28/16 at 12:59 Senna/Docusate Sodium (Senokot S) 1 tab BID PO Last administered on 12/04/16 20:35; Start 11/28/16 at 21:00; Stop 12/28/16 at 20:59 Sitagliptin Phosphate (Januvia) 100 mg DAILY PO Last administered on 12/05/16 08:42; Start 11/29/16 at 09:00; Stop 12/29/16 at 08:59 Vitamin D (Vitamin D) 1,000 units DAILY PO Last administered on 12/05/16 08:42 ; Start 11/29/16 at 09:00; Stop 12/29/16 at 08:59 BRIDGER GARCÍA MD Dec 05, 2016 17:04
[2016-12-05 20:00] VITALS: BP 138/64
[2016-12-05] MEDS: LUMIGAN EYE DROPS (PATIENT'S OWN MED) OU SCH (21:00)
[2016-12-05] MEDS: CLOPIDOGREL 75 MG TAB PO SCH (22:34)
[2016-12-05] MEDS: NIACIN SR (NIASPAN) 500 MG TAB PO SCH (22:34)
[2016-12-05] MEDS: FENOFIBRATE 145 MG TAB (TRICOR) PO SCH (22:35)
[2016-12-05] MEDS: ATORVASTATIN 20 MG TAB PO SCH (22:35)
[2016-12-06 06:00] VITALS: BP 148/74
[2016-12-06] MEDS: **hydrALAZINE** 50 MG TAB PO SCH (06:08)
[2016-12-06 07:49] LABS: MEAN CORPUSCULAR HGB CONC 32.3 g/dl (32.0-36.5); MEAN CORPUSCULAR VOLUME 99.2 fl (80.0-96.0); RED CELL DISTRIBUTION WIDTH 15.3 % (11.5-14.5); WHITE BLOOD COUNT 5.4 K/mm3 (4.0-10.0)
[2016-12-06 08:13] LABS: ALBUMIN 3.1 GM/DL (3.2-5.2); ALBUMIN/GLOBULIN RATIO 0.78 (1.00-1.93); ALKALINE PHOSPHATASE 83 U/L (45-117); ALT/SGPT 26 U/L (12-78); ANION GAP 8 MEQ/L (8-16); AST/SGOT 20 U/L (15-37); BILIRUBIN,TOTAL 0.3 MG/DL (0.2-1.0); BLOOD UREA NITROGEN 18 MG/DL (7-18); CALCIUM LEVEL 9.8 MG/DL (8.8-10.2); CARBON DIOXIDE LEVEL 28 MEQ/L (21-32); CHLORIDE LEVEL 107 MEQ/L (98-107); CREATININE FOR GFR 1.23 MG/DL (0.70-1.30); GLOMERULAR FILTRATION RATE > 60.0 (>49); GLUCOSE, FASTING 112 MG/DL (80-110); SODIUM LEVEL 143 MEQ/L (136-145); TOTAL PROTEIN 7.1 GM/DL (6.4-8.2)
[2016-12-06 08:15] LABS: POTASSIUM SERUM 5.2 MEQ/L (3.5-5.1)
[2016-12-06] MEDS: PANTOPRAZOLE 40MG TAB (PROTONIX) PO SCH (08:40)
[2016-12-06] MEDS: HumaLOG INSULIN (NovoLOG) PER UNIT SC SCH ×2 (08:40→12:17)
[2016-12-06] MEDS: VITAMIN D 1,000 INTERNATIONAL UNITS TABLET PO SCH (08:40)
[2016-12-06 08:41] VITALS: BP 148/74
[2016-12-06] MEDS: MAGNESIUM OXIDE 400 MG TAB (MAG-OX) PO SCH (08:41)
[2016-12-06] MEDS: SITagliptin 50 MG TAB (JANUVIA) PO SCH (08:41)
[2016-12-06] MEDS: amLODIPine 5 MG TAB PO SCH (08:41)
[2016-12-06] MEDS: GABAPENTIN 400 MG CAP PO SCH (08:41)
[2016-12-06] MEDS: DULoxetine 30 MG CAP (CYMBALTA) PO SCH (08:41)
[2016-12-06] MEDS: SENOKOT S TAB PO SCH (08:41)
[2016-12-06] MEDS: FAMOTIDINE 20 MG TAB PO SCH (08:41)
[2016-12-06] MEDS: METOPROLOL SUCC *XL* 25MG TAB (TopROL *XL*) PO SCH (08:42)
[2016-12-06] MEDS: COMBIGAN EYE DROPS (PATIENT'S OWN MED) OS SCH (08:42)
[2016-12-06] MEDS ORDERED: PERCOCET PO (08:55)
[2016-12-06] MEDS ORDERED: ELIQ5TAB PO (12:38)
[2016-12-06] MEDS ORDERED: CYMB60CA3 PO (12:38)
--- NOTE | 2016-12-09 13:30 | PMRDS ---
DATE OF ADMISSION: 11/28/2016 DATE OF DISCHARGE: 12/06/2016 DISCHARGE DIAGNOSES: 1. Rehabilitation of right ankle fracture status open reduction, internal fixation. 2. Atherosclerotic cardiovascular disease, including abdominal aortic aneurysm status post repair, bilateral lower extremity bypass surgery, hypertension, hyperlipidemia, peripheral vascular disease. 3. Type 2 diabetes mellitus. 4. Chronic pain syndrome with chronic low back pain, shoulder pain, and lower extremity pain, for which patient has been on Fentanyl and gabapentin. HISTORY: Patient is a 71-year-old white male who had a syncopal episode probably related to his cardiovascular disease and fell down, fracturing his distal left fibula in a spiral fracture pattern on 11/19/2016. Patient had open reduction and internal fixation performed but is nonweightbearing and placed in a splint. He needed to develop skills for nonweightbearing mobility, activities of daily living (ADLs), to allow him to return home to live with his , who can provide some supervision, however no physical support to him. Patient was felt on 11/28/2016 to have reached the point where he was medically stable and able to participate in acute intensive rehabilitation. His course had been complicated by chronic kidney disease stage III related to his peripheral vascular disease and multiple stent placements, the chronic pain, lactic acidosis, gastroesophageal reflux disease (GERD), and anxiety/depression. PROCEDURES PERFORMED ON THIS UNIT: None. LABORATORY: Patient followed with CBCs for a moderate anemia with his initial hemoglobin and hematocrit being 12.3 and 36.8 and today's being 12.1 and 37.4. Chemistry showing elevated BUN of 20 and elevated blood sugar of 149 along with AST elevated at 51, albumin decreased at 2.9 on his initial labs. Patient did have hepatitis profile, which was negative. His most recent comprehensive metabolic panel shows the albumin had improved to 3.1, still somewhat low. Electrolytes except for potassium were normal, with potassium being elevated at 5.2 but BUN and creatinine being 18 and 1.23, in the normal range, and his liver function tests had returned to normal range. HOSPITAL COURSE: Patient was admitted on 11/28/2016, started an evaluation with physical and occupational therapy, and then proceeded in training. He remained essentially medically stable throughout the admission. In occupational therapy, patient contact guard on sit to stand, stand to sit, chair to bed, and standby conference assistant contact guard on other transfers with only fair plus standing static and dynamic balance, progressing to modified independent in sit to stand transfers, stand to sit transfer, stand by assistance, and bed to chair, chair to bed, and other functional transfers, and improving standing static one foot stance to good minus, still fair plus on standing dynamic balance and in physical therapy going from tentative level of transfers and balance and wheelchair distance 75 feet with contact guard assistance, not initially ambulating to modified independence and sit to stand, stand to sit, bed to chair, chair to bed, good minus standing dynamic balance, wheelchair mobility up to 250 feet with independence, and ambulating greater than 50 feet with stand by assistance using a front wheel walker. Patient pain had been under very good control. He does seem to have benefited from starting the Cymbalta and is tolerating the Eliquis for atrial fibrillation, which has started and probably caused the syncope involved that resulted in the ankle fracture. Patient is felt to be able to transition back to home with home care. Plan is being discharged today. DISCHARGE MEDICATIONS: - Eliquis 5 mg twice a day for clot prevention - duloxetine 60 mg daily for pain - 10 tablets of Percocet 3/325 to use one tablet every 4 hours as needed moderate to severe pain and then to simply transition back to his Vicodin prescribed by his primary care - amlodipine 5 mg daily for blood pressure - atorvastatin 20 mg nightly for hyperlipidemia - baclofen 10 mg twice a day muscle spasms and back pain - Lumigan one drop both eyes nightly - Plavix 75 mg by mouth nightly - Combigan one drop left eye twice a day - famotidine 40 mg daily for gastrointestinal (GI) - fenofibrate 145 mg daily nightly for dyslipidemia - fentanyl 50 mcg per day patch, changing every 72 hours for chronic back pain - fish oil 1000 mg, take three capsules twice a day - gabapentin 1800 mg twice a day for back pain - hydralazine 50 mg every 8 hours for blood pressure - magnesium oxide 400 mg twice a day - metoprolol succinate 75 mg daily - niacin 2 grams of extended release at bedtime - pantoprazole 40 mg daily for gastroesophageal reflux disease (GERD) - Januvia 100 mg by mouth daily for diabetes - vitamin D 1000 international units per day Patient to see Dr. Franco on and Dr. Batista within the next 1-2 weeks. COMPLICATIONS: None. Discharge plans are as noted above. TIME SPENT ON DISCHARGE: Is greater than 35 minutes. MTDD
== END 2016-12-06 12:45 | disposition home health service (06) | DRG 560 ==
LOC: M PM&R 14:10
PROVIDERS: ADMIT Physical Medicine & Rehabilitation; ATTEND Physical Medicine & Rehabilitation
DX: S82.842D Displaced bimalleolar fracture of left lower leg, subsequent encounter for closed fracture with routine healing (principal); N17.9 Acute kidney failure, unspecified; I73.9 Peripheral vascular disease, unspecified; I71.4 Abdominal aortic aneurysm, without rupture; G89.4 Chronic pain syndrome; E11.9 Type 2 diabetes mellitus without complications; I12.9 Hypertensive chronic kidney disease with stage 1 through stage 4 chronic kidney disease, or unspecified chronic kidney disease; E78.5 Hyperlipidemia, unspecified; I25.10 Atherosclerotic heart disease of native coronary artery without angina pectoris; N18.3 Chronic kidney disease, stage 3 (moderate); F41.9 Anxiety disorder, unspecified; F32.9 Major depressive disorder, single episode, unspecified; K21.9 Gastro-esophageal reflux disease without esophagitis; Z95.5 Presence of coronary angioplasty implant and graft; M54.5 Low back pain; Z66 Do not resuscitate; Z79.4 Long term (current) use of insulin; Z79.899 Other long term (current) drug therapy; Z79.01 Long term (current) use of anticoagulants; E66.9 Obesity, unspecified; I48.91 Unspecified atrial fibrillation; D64.9 Anemia, unspecified; E83.42 Hypomagnesemia; E55.9 Vitamin D deficiency, unspecified

== ENCOUNTER → 2016-12-15 | Outpatient (CLI) | payer OTHER ==
[~2016-12-15] MED LIST changes: +CYMB60CA3 PO; +PERCOCET PO
--- NOTE | 2016-12-15 10:32 | REP ---
ULTRASOUND ABDOMINAL AORTA: Real-time sonographic evaluation of abdominal aorta is performed. The study is extremely limited due to body habitus and bowel gas. Comparison made with prior CT of 05/08/2012 shows evidence of an aortic stent graft extending into the right common iliac artery. The abdominal aorta is not well visualized on today's exam. Grossly, transverse diameter of the abdominal aorta at the level of the renal arteries is 2.7 cm and in the distal abdominal aorta 3.9 cm. Common iliac arteries appear mildly ectatic, right measuring 1.8 cm AP dimension and left 1.6 cm [address]. Recommend CT angiogram of the abdominal aorta for more complete evaluation. Signed by Alvarado Harrell MD 12/15/2016 03:13 P
== END ==
LOC: M RAD 08:11
PROVIDERS: ATTEND Surgery Vascular Surgery
DX: I71.4 Abdominal aortic aneurysm, without rupture (principal)

== ENCOUNTER → 2016-12-16 | Outpatient (CLI) | payer OTHER ==
--- NOTE | 2016-12-16 14:42 | REP ---
BILATERAL LOWER EXTREMITY DUPLEX DOPPLER ARTERIAL ULTRASOUND: Real-time ultrasound evaluation and duplex Doppler evaluation of the bilateral lower extremity arterial systems is performed. The patient has a [id number] graft, and there is patent flow within. Arteries in the left calf could not be evaluated due to an overlying cast. 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 Right ALAYNA is 1.0. Left ALAYNA could not be calculated. RIGHT LOWER EXTREMITY: PEAK SYSTOLIC VELOCITY PHASICITY Common femoral artery 177 cm/s Triphasic Profunda 125.2 cm/s Monophasic Proximal superficial femoral artery 146.2 Monophasic Mid SFA 79.2 Triphasic Distal SFA 66.8 Triphasic Popliteal 69.4 Triphasic Proximal anterior tibial artery 50.2 Monophasic Tibial peroneal trunk 58.2 Triphasic Posterior tibial artery proximal 41.9 Biphasic Distal DARK ROOM ATTENDANT 47.3 Monophasic Distal KAITY 69.4 Monophasic Genicular 63.9 Triphasic LEFT LOWER EXTREMITY: PEAK SYSTOLIC VELOCITY PHASICITY Profunda 42.0 Monophasic SFA proximal 100.8 Monophasic SFA mid 30.4 Monophasic SFA distal 81.0 Monophasic Popliteal 40.1 Monophasic Proximal anterior tibial artery 20.7 Monophasic Tibial peroneal trunk 39.8 Monophasic There appears to be mild stenosis at the anastomosis of the graft with the left common femoral artery. Signed by Alvarado Harrell MD 12/16/2016 05:24 P
== END ==
LOC: M RAD 09:07
PROVIDERS: ATTEND Surgery Vascular Surgery
DX: I73.9 Peripheral vascular disease, unspecified (principal)

== ENCOUNTER → 2017-08-24 | Outpatient (CLI) | payer OTHER | LOC: M RAD 07:28 | DX: I71.4 Abdominal aortic aneurysm, without rupture (principal); I70.301 Unspecified atherosclerosis of unspecified type of bypass graft(s) of the extremities, right leg; I82.512 Chronic embolism and thrombosis of left femoral vein; I77.1 Stricture of artery | CPT/HCPCS: 93978 ==

== ENCOUNTER → 2018-06-14 | Outpatient (CLI) | payer MEDICARE ==
[~2018-06-14] MED LIST changes: -AMLO5TAB2 PO; +AMLO5TAB6 PO; -FENO145T PO; +FENO145T13 PO; -GABA-282 PO; +GABA-843 PO; -GABA600T PO; +GABA600T4 PO; -PANT40TA2 PO; +PANT40TA3 PO
--- NOTE | 2018-06-15 10:24 | REP ---
Clinical: Peripheral vascular disease with history of femoral - femoral bypass grafts. Comparison: 08/24/2017. Technique: Real time harrell scale and color Doppler evaluation of the bilateral lower extremity arterial vasculature using linear high frequency transducer. Findings: Right ALAYNA equals 0.7. Left ALAYNA equals 0.55. Harrell scale and color images demonstrate moderate to severe atherosclerotic changes throughout the bilateral lower extremities. Stenosis at the right common femoral artery is again suspected. Occlusion of the left proximal/mid superficial femoral artery is again identified and unchanged. Revascularization of the distal left superficial femoral artery demonstrates reversed flow. Two femoral - femoral bypass grafts are again appreciated - one of which demonstrates complete occlusion as previously noted while the second patent graft demonstrates right to left flow including biphasic wave pattern with a 120 cm/sec velocity at the right anastomoses, 80 cm/sec velocity through the mid portion with triphasic wave pattern, and 70 cm/sec velocity with triphasic wave pattern at the left anastomoses. Peak systolic velocities (cm/sec) RIGHT LEFT Common femoral artery 227 triphasic 61.5 monophasic Profunda femoris 27.8 biphasic 98.5 monophasic SFA (proximal) 82.6 biphasic occluded SFA (mid) 82.0 triphasic occluded SFA (distal) 83.9 triphasic 127 monophasic Popliteal artery 67.3 triphasic 60 monophasic KAITY (prox.) 44.7 triphasic 12.9 monophasic Tibioperoneal trunk 55.4 triphasic 47.1 monophasic MANAGER SPRING (prox.) 47.2 triphasic not identified MANAGER SPRING (distal) 88.9 monophasic 60.2 monophasic KAITY (distal) 118 monophasic 39.8 monophasic Impression: Extensive atherosclerotic changes with findings as detailed above. Electronically Signed by Didier Villanueva MD 06/15/2018 10:14 A
== END ==
LOC: M RAD 10:44
PROVIDERS: ATTEND Surgery Vascular Surgery
DX: I73.9 Peripheral vascular disease, unspecified (principal)

== ENCOUNTER → 2018-08-14 | Outpatient (CLI) | payer MEDICARE ==
[~2018-08-14] MED LIST changes: -/FENT50PA TD; -/PANT40TA OR; -/WARF25TA OR; -/WARF25TA PO; -/WARF5TA OR; +COUM1TAB17 OR; +COUM1TAB18 OR; +COUM1TAB18 PO; -DULO30CA PO; +DULO30CA9 PO; +FENT1DIS15 TD; +FENT50DI33 TD; -FENT50PA TD; +METO-743 OR; -NORC10TA21 PO; +NORC1TAB5 PO; +PROT1TAB2 OR; -TOPR50TA OR
[2018-08-14 10:35] LABS: HEMOGLOBIN A1c 9.3 %
[2018-08-14 10:41] LABS: ALBUMIN 3.6 GM/DL (3.2-5.2); BILIRUBIN,TOTAL 0.4 MG/DL (0.2-1.0); CALCIUM LEVEL 9.1 MG/DL (8.8-10.2); CHOLESTEROL RISK RATIO 5.346 (<5); CREATININE FOR GFR 1.56 MG/DL (0.70-1.30); GLOMERULAR FILTRATION RATE 47.1 (>42); POTASSIUM SERUM 4.6 MEQ/L (3.5-5.1); TOTAL PROTEIN 7.1 GM/DL (6.4-8.2)
== END ==
LOC: M LAB 09:47
PROVIDERS: ATTEND Internal Medicine
DX: I10 Essential (primary) hypertension (principal); E78.5 Hyperlipidemia, unspecified; E11.9 Type 2 diabetes mellitus without complications

== ENCOUNTER → 2019-02-26 | Outpatient (CLI) | payer MEDICARE | LOC: M RAD 09:21 | PROVIDERS: ATTEND Physician Assistant | DX: I71.4 Abdominal aortic aneurysm, without rupture (principal); I73.9 Peripheral vascular disease, unspecified ==

== ENCOUNTER → 2019-03-01 | Outpatient (CLI) | payer MEDICARE ==
--- NOTE | 2019-03-01 08:55 | REP ---
Abdominal aorta ultrasound: Abdominal Aortic Measurements are as follows: Proximal obscured cm AP obscured cm TRV Renal Artery Level 1.5 cm AP 1.4 cm TRV Mid Aorta 1.6 cm AP 1.4 cm TRV Distal Aorta 1.7 cm AP 1.8 cm TRV R Iliac Artery 1.2 cm AP obscured cm TRV L Iliac Artery 1.2 cm AP obscured cm TRV On review of the abdomen/pelvis CT dated 05/08/2012, the the patient has an aortobi-iliac endovascular stent. The ultrasound study is technically difficult because of patient body habitus and bowel gas. No aneurysm is identified. However, it is difficult to visualize the stent or picayune aortic sanchez. Electronically Signed by Alvarado Giron MD 03/01/2019 08:46 A
== END ==
LOC: M RAD 07:51
PROVIDERS: ATTEND Physician Assistant
DX: I71.4 Abdominal aortic aneurysm, without rupture (principal); I73.9 Peripheral vascular disease, unspecified; Z95.5 Presence of coronary angioplasty implant and graft

== ENCOUNTER → 2019-04-01 | Outpatient (CLI) | payer MEDICARE ==
[~2019-04-01] MED LIST changes: +ISOVUE-370 76% 100ML VIAL (Q9967) As Ordered ONE
--- NOTE | 2019-04-01 15:51 | REP ---
CT angiography of the abdomen pelvis and lower extremity runoff arteries with contrast: History: Abdominal aortic aneurysm. Peripheral vascular disease. Comparison CT study May 08, 2012. CT contrast dose: 100 mL of intravenous Isovue [address] findings: Preliminary digital oil and gas principal radiograph demonstrates clips in right upper quadrant, aorto-iliac stent grafting and clips in the inguinal regions bilaterally. The suprarenal abdominal aorta and the lower thoracic aorta are normal in caliber moderately calcified. The celiac artery origin shows a high-grade stenosis. Greater than 90%. The celiac branches are small. This is unchanged from the April 2012 study. SMA is calcified but widely patent. Singular non-stenotic renal arteries are seen bilaterally. There is a patent stent in the left mid renal artery. There is a stent at the origin of the left main renal artery as well. Below the renal arteries, there is a stent graft in place. There is an occluded limb of the stent graft projecting to the right of midline in the abdominal aorta. This is unchanged. The distal stent is patent and extends into the right common iliac artery. The [place] left common iliac artery is occluded. There is an occluded left external and common iliac stent graft. The [place] right common iliac artery is occluded. The right external iliac stent graft is patent. There is aneurysmal dilation at the anastomosis of the stent graft with the common femoral artery. These findings are unchanged. There are one patent and two occluded right to left fem-fem bypass grafts. The right common femoral artery, proximal profunda, and proximal superficial femoral artery are widely patent. There is some vascular calcification in the superficial femoral artery but no high-grade stenosis is seen. Popliteal artery is patent and of good caliber. Three-vessel right lower extremity calf runoff arteries are seen patent to the distal calf and the anterior and posterior tibial arteries are seen patent across the ankle. The left crossover graft anastomoses is patent into the profunda femoral artery on the left. The left superficial femoral artery is occluded from its origin. This reconstitutes at the level of the adductor canal via profunda generated collaterals. The popliteal artery is patent. Patent three-vessel calf runoff is seen into the distal calf. The posterior tibial and anterior tibial artery are patent across the ankle. Impression: Aortobi-iliac occlusive atherosclerotic disease with patent aorto right femoral and [id number] fem-fem crossover grafts. Occluded left superficial femoral artery reconstituted at the level of the adductor canal. Fairly good three-vessel bilateral calf runoff vessels. There are two stents in the left renal artery. 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 Electronically Signed by Lucien Monk MD 04/01/2019 06:01 P
== END ==
LOC: M RAD 13:46
PROVIDERS: ATTEND Physician Assistant
DX: I71.4 Abdominal aortic aneurysm, without rupture (principal); I73.9 Peripheral vascular disease, unspecified
CPT/HCPCS: 75635; Q9967

== ENCOUNTER → 2020-04-08 | Outpatient (CLI) | payer MEDICARE ==
[~2020-04-08] MED LIST changes: +AMLO1TAB24 PO; -AMLO5TAB6 PO; -ASPI81TA85 PO; +ASPI81TA86 PO; -FENO145T13 PO; +FENO145T7 PO; -ISOVUE-370 76% 100ML VIAL (Q9967) As Ordered ONE; +PANT40TA29 PO; -PANT40TA3 PO
[2020-04-08 11:20] LABS: CREATININE FOR GFR 1.4 MG/DL (0.70-1.30); POTASSIUM SERUM 4.5 MEQ/L (3.5-5.1)
== END ==
LOC: M LAB 10:19
PROVIDERS: ATTEND Surgery Vascular Surgery
DX: I71.4 Abdominal aortic aneurysm, without rupture (principal)

== ENCOUNTER → 2020-04-15 | Outpatient (CLI) | payer MEDICARE ==
[~2020-04-15] MED LIST changes: +ISOVUE-370 76% 100ML VIAL As Ordered ONE
--- NOTE | 2020-04-15 12:06 | REP ---
INDICATION: ABDOMINAL AORTIC ANEURYSM, WITHOUT RUPTURE COMPARISON: 04/01/2019 TECHNIQUE: Axial contrast-enhanced images from the lung bases to the pubic symphysis using angiographic technique including coronal and sagittal reformations and MIP images. 100 cc Isovue 370 intravenous contrast material administered without complication. This CT examination was performed using the following dose reduction techniques: Automated exposure control, adjustment of mA and/or kv according to the patient's size, and use of iterative reconstruction technique. FINDINGS: The aorto-right iliac stent graft is stable in appearance and the excluded infrarenal abdominal aortic aneurysm is unchanged in size measuring approximately 3.4 cm maximal transverse diameter and without contrast enhancement to suggest leak. Stable moderate to advanced atherosclerotic changes through the visualized aorta and iliac arteries noted with patent appearance to the celiac axis, superior mesenteric artery, bilateral renal arteries (stable left renal stent noted), inferior mesenteric artery and right common iliac artery. The left common iliac artery again demonstrates complete occlusion. Postsurgical changes at the right groin demonstrate patent femoral-femoral graft as well as occluded excluded previous femoral-femoral graft. Liver, spleen, pancreas, and bilateral adrenal glands appear normal. Evidence for prior cholecystectomy. Kidneys demonstrate symmetric atrophic changes similar to prior examination. The enteric system is without obstruction or acute inflammatory process. Pelvis demonstrates collapsed bladder and prostatomegaly. No ascites. No free air. No adenopathy. Surrounding musculoskeletal structures demonstrate degenerative changes without acute osseous abnormality. Lung bases demonstrate chronic stable changes. IMPRESSION: 1. Aorta (including aortoiliac stent), and branch vessels as well as femoral-femoral vascular graft appear stable and without evidence for new significant pathology or vascular abnormality. <Electronically signed by Didier Villanueva > 04/15/20 [id number]
== END ==
LOC: M RAD 10:35
PROVIDERS: ATTEND Physician Assistant
DX: I71.4 Abdominal aortic aneurysm, without rupture (principal)
CPT/HCPCS: 74174; Q9967

== ENCOUNTER → 2021-02-08 | Outpatient (CLI) | payer MEDICARE ==
[~2021-02-08] MED LIST changes: +GABA-282 PO; -GABA-843 PO; -ISOVUE-370 76% 100ML VIAL As Ordered ONE
[2021-02-08 11:13] LABS: BASO # 0.1 10^3/uL (0.0-0.2); BASO % 1.4 % (0.0-1.0); EOS # 0.1 10^3/uL (0.0-0.5); EOS % 1.9 % (0.0-3.0); HEMATOCRIT 43.4 % (42.0-52.0); HEMOGLOBIN 13.4 g/dl (13.5-17.5); LYMPH # 1.8 10^3/uL (1.5-5.0); LYMPH % 24.4 % (24.0-44.0); MEAN CORPUSCULAR HEMOGLOBIN 26.5 pg (27.0-33.0); MEAN CORPUSCULAR HGB CONC 30.9 g/dl (32.0-36.5); MEAN CORPUSCULAR VOLUME 85.8 fl (80.0-96.0); MONO # 0.6 10^3/uL (0.0-0.8); NEUTROPHILS # 4.7 10^3/uL (1.5-8.5); NEUTROPHILS % 63.3 % (36.0-66.0); PLATELET COUNT, AUTOMATED 374 10^3/uL (150-450); RED BLOOD COUNT 5.06 10^6/uL (4.30-6.10); WHITE BLOOD COUNT 7.3 10^3/uL (4.0-10.0)
[2021-02-08 11:22] LABS: INR 1.19; PROTHROMBIN TIME 15.6 SECONDS (12.7-14.5)
[2021-02-08 11:43] LABS: CREATININE FOR GFR 1.66 MG/DL (0.70-1.30); GLOMERULAR FILTRATION RATE 43.4 (>42)
== END ==
LOC: M LAB 09:34
DX: Z01.818 Encounter for other preprocedural examination (principal); I71.4 Abdominal aortic aneurysm, without rupture; D69.8 Other specified hemorrhagic conditions

== ENCOUNTER → 2021-02-20 | Outpatient (CLI) | payer MEDICARE ==
[~2021-02-20] MED LIST changes: -CYMB60CA3 PO; +CYMB60CA4 PO
== END ==
LOC: M LABSMTC 10:51
PROVIDERS: ATTEND Surgery Vascular Surgery
DX: Z20.828 Contact with and (suspected) exposure to other viral communicable diseases (principal); Z11.52 Encounter for screening for COVID-19

== ENCOUNTER → 2021-05-10 | Outpatient (REF) | payer MEDICARE | LOC: M LAB REF 12:57 | PROVIDERS: ATTEND Nurse Practitioner Family | DX: E83.42 Hypomagnesemia (principal) ==

== ENCOUNTER → 2021-10-28 | Outpatient (CLI) | payer MEDICARE | LOC: M WUC 09:28 | PROVIDERS: ATTEND Internal Medicine | DX: J06.9 Acute upper respiratory infection, unspecified (principal) ==

== ENCOUNTER → 2022-03-23 | Outpatient (CLI) | payer MEDICARE ==
[~2022-03-23] MED LIST changes: +CLOP75TA99 PO; +FISH10005 PO; -FISH7.5C PO; -PLAV1TAB2 PO
[2022-03-23 12:16] LABS: CREATININE FOR GFR 1.67 MG/DL (0.70-1.30)
== END ==
LOC: M LAB 10:19
PROVIDERS: ATTEND Surgery Vascular Surgery
DX: Z98.890 Other specified postprocedural states (principal)

== ENCOUNTER → 2022-04-01 | Outpatient (CLI) | payer MEDICARE ==
[~2022-04-01] MED LIST changes: +ISOVUE-370 76% 100ML VIAL As Ordered ONE
== END ==
LOC: M RAD 13:08
PROVIDERS: ATTEND Surgery Vascular Surgery
DX: Z98.890 Other specified postprocedural states (principal); Z86.79 Personal history of other diseases of the circulatory system
CPT/HCPCS: 74174; Q9967

== ENCOUNTER → 2022-06-01 | Outpatient (CLI) | payer MEDICARE ==
[~2022-06-01] MED LIST changes: -ISOVUE-370 76% 100ML VIAL As Ordered ONE
[2022-06-01 14:47] LABS: BASO # 0.1 10^3/uL (0.0-0.2); BASO % 1.2 % (0.0-1.0); EOS # 0.1 10^3/uL (0.0-0.5); EOS % 1.8 % (0.0-3.0); HEMATOCRIT 39.8 % (42.0-52.0); HEMOGLOBIN 12.2 g/dl (13.5-17.5); LYMPH % 29.7 % (24.0-44.0); MEAN CORPUSCULAR HEMOGLOBIN 25.3 pg (27.0-33.0); MEAN CORPUSCULAR HGB CONC 30.7 g/dl (32.0-36.5); MEAN CORPUSCULAR VOLUME 82.4 fl (80.0-96.0); MONO # 0.8 10^3/uL (0.0-0.8); MONO % 12.4 % (2.0-8.0); NEUTROPHILS # 3.6 10^3/uL (1.5-8.5); NEUTROPHILS % 54.3 % (36.0-66.0); PLATELET COUNT, AUTOMATED 404 10^3/uL (150-450); RED BLOOD COUNT 4.83 10^6/uL (4.30-6.10); WHITE BLOOD COUNT 6.6 10^3/uL (4.0-10.0)
[2022-06-01 14:56] LABS: HEMOGLOBIN A1c 6.8 % (4.0-6.0)
[2022-06-01 15:19] LABS: ALBUMIN 3.5 G/DL (3.2-5.2); BILIRUBIN,TOTAL 0.4 MG/DL (0.3-1.2); CALCIUM LEVEL 9.4 MG/DL (8.3-10.6); CHOLESTEROL RISK RATIO 6.14 (<5); CREATININE FOR GFR 1.48 MG/DL (0.70-1.30); GLOMERULAR FILTRATION RATE 49.5 (>42); HDL CHOLESTEROL 23.1 MG/DL (>40); LDL CHOLESTEROL 88.5 MG/DL (<100); POTASSIUM SERUM 4.6 MMOL/L (3.5-5.1)
== END ==
LOC: M LAB 13:26
PROVIDERS: ATTEND Internal Medicine
DX: E78.5 Hyperlipidemia, unspecified (principal); E11.9 Type 2 diabetes mellitus without complications; I10 Essential (primary) hypertension

== ENCOUNTER → 2022-09-12 | Outpatient (CLI) | payer MEDICARE ==
[2022-09-12 09:51] LABS: BASO # 0.1 10^3/uL (0.0-0.2); BASO % 1.7 % (0.0-1.0); EOS # 0.1 10^3/uL (0.0-0.5); EOS % 1.9 % (0.0-3.0); HEMATOCRIT 41.4 % (42.0-52.0); HEMOGLOBIN 12.3 g/dl (13.5-17.5); LYMPH # 1.8 10^3/uL (1.5-5.0); LYMPH % 25.3 % (24.0-44.0); MEAN CORPUSCULAR HEMOGLOBIN 24.6 pg (27.0-33.0); MEAN CORPUSCULAR HGB CONC 29.7 g/dl (32.0-36.5); MONO # 0.7 10^3/uL (0.0-0.8); MONO % 9.3 % (2.0-8.0); NEUTROPHILS # 4.4 10^3/uL (1.5-8.5); NEUTROPHILS % 60.6 % (36.0-66.0); PLATELET COUNT, AUTOMATED 422 10^3/uL (150-450); RED BLOOD COUNT 4.99 10^6/uL (4.30-6.10); WHITE BLOOD COUNT 7.2 10^3/uL (4.0-10.0)
[2022-09-12 10:17] LABS: ALBUMIN 3.3 G/DL (3.2-5.2); BILIRUBIN,TOTAL 0.3 MG/DL (0.3-1.2); CALCIUM LEVEL 9.6 MG/DL (8.3-10.6); CHOLESTEROL RISK RATIO 5.68 (<5); CREATININE FOR GFR 1.73 MG/DL (0.70-1.30); GLOMERULAR FILTRATION RATE 41.3 (>42); HDL CHOLESTEROL 21.8 MG/DL (>40); LDL CHOLESTEROL 68.2 MG/DL (<100); NON-HDL-C 102.2 MG/DL; POTASSIUM SERUM 4.9 MMOL/L (3.5-5.1); TOTAL PROTEIN 6.7 G/DL (5.7-8.2)
[2022-09-12 10:19] LABS: HEMOGLOBIN A1c 7.1 % (4.0-6.0)
== END ==
LOC: M LAB 09:02
PROVIDERS: ATTEND Internal Medicine
DX: E11.9 Type 2 diabetes mellitus without complications (principal); E78.5 Hyperlipidemia, unspecified; I10 Essential (primary) hypertension

== ENCOUNTER → 2022-12-12 | Outpatient (CLI) | payer MEDICARE ==
[2022-12-12 12:09] LABS: BASO # 0.1 10^3/uL (0.0-0.2); BASO % 1.4 % (0.0-1.0); EOS # 0.1 10^3/uL (0.0-0.5); EOS % 1.7 % (0.0-3.0); HEMATOCRIT 41.1 % (42.0-52.0); HEMOGLOBIN 12.4 g/dl (13.5-17.5); LYMPH # 1.8 10^3/uL (1.5-5.0); MEAN CORPUSCULAR HEMOGLOBIN 24.7 pg (27.0-33.0); MEAN CORPUSCULAR HGB CONC 30.2 g/dl (32.0-36.5); MEAN CORPUSCULAR VOLUME 81.9 fl (80.0-96.0); MONO # 0.7 10^3/uL (0.0-0.8); MONO % 9.6 % (2.0-8.0); NEUTROPHILS # 4.3 10^3/uL (1.5-8.5); NEUTROPHILS % 61.4 % (36.0-66.0); PLATELET COUNT, AUTOMATED 401 10^3/uL (150-450); RED BLOOD COUNT 5.02 10^6/uL (4.30-6.10)
[2022-12-12 12:42] LABS: ALBUMIN 3.4 G/DL (3.2-5.2); BILIRUBIN,TOTAL 0.4 MG/DL (0.3-1.2); CALCIUM LEVEL 9.4 MG/DL (8.3-10.6); CHOLESTEROL RISK RATIO 6.39 (<5); CREATININE FOR GFR 1.67 MG/DL (0.70-1.30); GLOMERULAR FILTRATION RATE 42.9 (>42); HDL CHOLESTEROL 22.2 MG/DL (>40); LDL CHOLESTEROL 78.8 MG/DL (<100); NON-HDL-C 119.8 MG/DL; POTASSIUM SERUM 5.1 MMOL/L (3.5-5.1)
[2022-12-12 13:17] LABS: HEMOGLOBIN A1c 7.1 % (4.0-6.0)
== END ==
LOC: M LAB 11:21
PROVIDERS: ATTEND Internal Medicine
DX: E11.51 Type 2 diabetes mellitus with diabetic peripheral angiopathy without gangrene (principal); E78.5 Hyperlipidemia, unspecified; I73.9 Peripheral vascular disease, unspecified

== ENCOUNTER → 2023-03-22 | Outpatient (CLI) | payer MEDICARE ==
[2023-03-22 09:19] LABS: HEMATOCRIT 43.2 % (42.0-52.0); HEMOGLOBIN 13.1 g/dl (13.5-17.5); MEAN CORPUSCULAR HEMOGLOBIN 25.3 pg (27.0-33.0); MEAN CORPUSCULAR HGB CONC 30.3 g/dl (32.0-36.5); MEAN CORPUSCULAR VOLUME 83.4 fl (80.0-96.0); PLATELET COUNT, AUTOMATED 397 10^3/uL (150-450); RED BLOOD COUNT 5.18 10^6/uL (4.30-6.10); WHITE BLOOD COUNT 7.1 10^3/uL (4.0-10.0)
[2023-03-22 09:30] LABS: HEMOGLOBIN A1c 7.4 % (4.0-6.0)
[2023-03-22 09:43] LABS: ALBUMIN 3.4 G/DL (3.2-5.2); BILIRUBIN,TOTAL 0.5 MG/DL (0.3-1.2); CALCIUM LEVEL 9.2 MG/DL (8.3-10.6); CHOLESTEROL RISK RATIO 6.33 (<5); CREATININE FOR GFR 1.53 MG/DL (0.70-1.30); GLOMERULAR FILTRATION RATE 47.5 (>42); HDL CHOLESTEROL 23.2 MG/DL (>40); LDL CHOLESTEROL 84.6 MG/DL (<100); NON-HDL-C 123.8 MG/DL; POTASSIUM SERUM 4.9 MMOL/L (3.5-5.1)
== END ==
LOC: M LAB 08:26
PROVIDERS: ATTEND Internal Medicine
DX: E78.5 Hyperlipidemia, unspecified (principal); E11.9 Type 2 diabetes mellitus without complications; I10 Essential (primary) hypertension

== ENCOUNTER → 2023-06-20 | Outpatient (CLI) | payer MEDICARE ==
[~2023-06-20] MED LIST changes: -HYDR25TA PO; +HYDR25TA88 PO; -HYDR50TA PO; +HYDR50TA47 PO
[2023-06-20 13:26] LABS: BASO # 0.1 10^3/uL (0.0-0.2); BASO % 1.3 % (0.0-1.0); EOS # 0.1 10^3/uL (0.0-0.5); EOS % 1.6 % (0.0-3.0); HEMATOCRIT 42.1 % (42.0-52.0); HEMOGLOBIN 13.1 g/dl (13.5-17.5); LYMPH # 2.3 10^3/uL (1.5-5.0); LYMPH % 29.2 % (24.0-44.0); MEAN CORPUSCULAR HEMOGLOBIN 26.1 pg (27.0-33.0); MEAN CORPUSCULAR HGB CONC 31.1 g/dl (32.0-36.5); MEAN CORPUSCULAR VOLUME 83.9 fl (80.0-96.0); MONO # 0.9 10^3/uL (0.0-0.8); NEUTROPHILS # 4.3 10^3/uL (1.5-8.5); NEUTROPHILS % 55.9 % (36.0-66.0); PLATELET COUNT, AUTOMATED 373 10^3/uL (150-450); RED BLOOD COUNT 5.02 10^6/uL (4.30-6.10); WHITE BLOOD COUNT 7.7 10^3/uL (4.0-10.0)
[2023-06-20 13:32] LABS: HEMOGLOBIN A1c 7.4 % (4.0-6.0)
[2023-06-20 13:44] LABS: ALBUMIN 3.3 G/DL (3.2-5.2); BILIRUBIN,TOTAL 0.2 MG/DL (0.3-1.2); CALCIUM LEVEL 9.5 MG/DL (8.3-10.6); CHOLESTEROL RISK RATIO 7.18 (<5); CREATININE FOR GFR 1.67 MG/DL (0.70-1.30); GLOMERULAR FILTRATION RATE 42.9 (>42); HDL CHOLESTEROL 19.9 MG/DL (>40); LDL CHOLESTEROL 72.7 MG/DL (<100); NON-HDL-C 123.1 MG/DL; POTASSIUM SERUM 5.4 MMOL/L (3.5-5.1); TOTAL PROTEIN 6.8 G/DL (5.7-8.2)
== END ==
LOC: M LAB 12:23
PROVIDERS: ATTEND Internal Medicine
DX: E11.9 Type 2 diabetes mellitus without complications (principal); I10 Essential (primary) hypertension; E78.5 Hyperlipidemia, unspecified

== ENCOUNTER → 2023-08-03 | Outpatient (CLI) | payer MEDICARE | LOC: M RAD 08:37 | PROVIDERS: ATTEND Nurse Practitioner Family | DX: N18.31 Chronic kidney disease, stage 3a (principal); I70.1 Atherosclerosis of renal artery; R33.9 Retention of urine, unspecified ==

== ENCOUNTER → 2023-09-21 | Outpatient (CLI) | payer MEDICARE ==
[2023-09-21 09:56] LABS: HEMOGLOBIN A1c 7.1 % (4.0-6.0)
[2023-09-21 10:08] LABS: BILIRUBIN,TOTAL 0.3 MG/DL (0.3-1.2); CALCIUM LEVEL 9.2 MG/DL (8.3-10.6); CHOLESTEROL RISK RATIO 6.21 (<5); CREATININE FOR GFR 1.92 MG/DL (0.70-1.30); GLOMERULAR FILTRATION RATE 36.5 (>42); HDL CHOLESTEROL 19.8 MG/DL (>40); LDL CHOLESTEROL 70.8 MG/DL (<100); NON-HDL-C 103.2 MG/DL; POTASSIUM SERUM 4.9 MMOL/L (3.5-5.1); TOTAL PROTEIN 6.4 G/DL (5.7-8.2)
[2023-09-21 10:50] LABS: BASO # 0.1 10^3/uL (0.0-0.2); BASO % 1.7 % (0.0-1.0); EOS # 0.2 10^3/uL (0.0-0.5); EOS % 3.1 % (0.0-3.0); HEMATOCRIT 39.8 % (42.0-52.0); HEMOGLOBIN 12.2 g/dl (13.5-17.5); LYMPH # 1.9 10^3/uL (1.5-5.0); LYMPH % 27.5 % (24.0-44.0); MEAN CORPUSCULAR HEMOGLOBIN 26.1 pg (27.0-33.0); MEAN CORPUSCULAR HGB CONC 30.7 g/dl (32.0-36.5); MONO # 0.8 10^3/uL (0.0-0.8); MONO % 11.6 % (2.0-8.0); NEUTROPHILS # 3.9 10^3/uL (1.5-8.5); NEUTROPHILS % 55.2 % (36.0-66.0); PLATELET COUNT, AUTOMATED 379 10^3/uL (150-450); RED BLOOD COUNT 4.68 10^6/uL (4.30-6.10)
== END ==
LOC: M LAB 09:06
PROVIDERS: ATTEND Internal Medicine
DX: E11.9 Type 2 diabetes mellitus without complications (principal); E78.5 Hyperlipidemia, unspecified; I10 Essential (primary) hypertension

== ENCOUNTER → 2023-12-25 | Outpatient (CLI) | payer MEDICARE ==
[~2023-12-25] MED LIST changes: +GABA-1490 PO; -GABA600T4 PO
[2023-12-25 13:45] LABS: BASO # 0.1 10^3/uL (0.0-0.2); BASO % 1.1 % (0.0-1.0); EOS # 0.1 10^3/uL (0.0-0.5); EOS % 1.6 % (0.0-3.0); HEMATOCRIT 41.2 % (42.0-52.0); HEMOGLOBIN 12.8 g/dl (13.5-17.5); MEAN CORPUSCULAR HEMOGLOBIN 26.4 pg (27.0-33.0); MEAN CORPUSCULAR HGB CONC 31.1 g/dl (32.0-36.5); MEAN CORPUSCULAR VOLUME 85.1 fl (80.0-96.0); MONO # 0.8 10^3/uL (0.0-0.8); NEUTROPHILS % 56.3 % (36.0-66.0); PLATELET COUNT, AUTOMATED 339 10^3/uL (150-450); RED BLOOD COUNT 4.84 10^6/uL (4.30-6.10)
[2023-12-25 14:20] LABS: ALBUMIN 3.4 G/DL (3.2-5.2); BILIRUBIN,TOTAL 0.2 MG/DL (0.3-1.2); CALCIUM LEVEL 9.2 MG/DL (8.3-10.6); CHOLESTEROL RISK RATIO 7.02 (<5); CREATININE FOR GFR 2.2 MG/DL (0.70-1.30); GLOMERULAR FILTRATION RATE 31.1 (>42); HDL CHOLESTEROL 19.5 MG/DL (>40); LDL CHOLESTEROL 64.5 MG/DL (<100); NON-HDL-C 117.5 MG/DL; POTASSIUM SERUM 4.9 MMOL/L (3.5-5.1); TOTAL PROTEIN 6.8 G/DL (5.7-8.2)
[2023-12-25 14:47] LABS: HEMOGLOBIN A1c 6.9 % (4.0-6.0)
== END ==
LOC: M LAB 13:19
PROVIDERS: ATTEND Internal Medicine
DX: E11.9 Type 2 diabetes mellitus without complications (principal); E78.5 Hyperlipidemia, unspecified; I10 Essential (primary) hypertension

== ENCOUNTER → 2024-03-29 | Outpatient (CLI) | payer MEDICARE ==
[~2024-03-29] MED LIST changes: +GABA-1172 PO; -GABA-282 PO
[2024-03-29 12:19] LABS: HEMOGLOBIN A1c 7.1 % (4.0-6.0)
[2024-03-29 12:38] LABS: THYROID STIMULATING HORMONE 1.499 uIU/ML (0.55-4.78)
[2024-03-29 12:39] LABS: ALBUMIN 3.2 G/DL (3.2-5.2); BILIRUBIN,TOTAL 0.4 MG/DL (0.3-1.2); CALCIUM LEVEL 9.9 MG/DL (8.3-10.6); CHOLESTEROL RISK RATIO 7.41 (<5); CREATININE FOR GFR 1.81 MG/DL (0.70-1.30); HDL CHOLESTEROL 22.4 MG/DL (>40); LDL CHOLESTEROL 99.8 MG/DL (<100); NON-HDL-C 143.6 MG/DL; POTASSIUM SERUM 5.6 MMOL/L (3.5-5.1); TOTAL PROTEIN 7.2 G/DL (5.7-8.2)
== END ==
LOC: M LAB 09:28
PROVIDERS: ATTEND Internal Medicine
DX: E11.9 Type 2 diabetes mellitus without complications (principal); E78.5 Hyperlipidemia, unspecified; I10 Essential (primary) hypertension; F41.9 Anxiety disorder, unspecified

== ENCOUNTER → 2024-06-25 | Outpatient (CLI) | payer MEDICARE ==
[2024-06-25 09:42] LABS: BASO # 0.1 10^3/uL (0.0-0.2); BASO % 0.9 % (0.0-1.0); EOS # 0.2 10^3/uL (0.0-0.5); HEMATOCRIT 39.6 % (42.0-52.0); HEMOGLOBIN 12.1 g/dl (13.5-17.5); LYMPH # 1.6 10^3/uL (1.5-5.0); LYMPH % 21.1 % (24.0-44.0); MEAN CORPUSCULAR HEMOGLOBIN 26.6 pg (27.0-33.0); MEAN CORPUSCULAR HGB CONC 30.6 g/dl (32.0-36.5); MONO # 0.8 10^3/uL (0.0-0.8); MONO % 10.1 % (2.0-8.0); NEUTROPHILS # 4.8 10^3/uL (1.5-8.5); NEUTROPHILS % 64.8 % (36.0-66.0); PLATELET COUNT, AUTOMATED 349 10^3/uL (150-450); RED BLOOD COUNT 4.55 10^6/uL (4.30-6.10)
[2024-06-25 10:07] LABS: ALBUMIN 3.1 G/DL (3.2-5.2); BILIRUBIN,TOTAL 0.2 MG/DL (0.3-1.2); CALCIUM LEVEL 8.9 MG/DL (8.3-10.6); CHOLESTEROL RISK RATIO 6.86 (<5); CREATININE FOR GFR 2.22 MG/DL (0.70-1.30); GLOMERULAR FILTRATION RATE 30.8 (>42); HDL CHOLESTEROL 18.8 MG/DL (>40); LDL CHOLESTEROL 75.6 MG/DL (<100); NON-HDL-C 110.2 MG/DL; TOTAL PROTEIN 6.5 G/DL (5.7-8.2)
[2024-06-25 10:25] LABS: HEMOGLOBIN A1c 6.8 % (4.0-6.0)
[2024-06-26 07:22] LABS: WHITE BLOOD COUNT 7.4 10^3/uL (4.0-10.0)
== END ==
LOC: M LAB 08:47
PROVIDERS: ATTEND Internal Medicine
DX: E11.9 Type 2 diabetes mellitus without complications (principal)

== ENCOUNTER → 2024-12-24 | Outpatient (CLI) | payer MEDICARE ==
[~2024-12-24] MED LIST changes: +AMLO1TAB25 PO; +DULO60CA35 PO; +FENT1PAT25 TOP; +HYDR-3716 PO; +INSU100I60 INJ; +JANU25TA PO; +MAGN400T35 PO; +METO1TAB33 PO; +PANT-23 PO; +TERA2CAP3 PO
[2024-12-24 09:11] LABS: BASO # 0.1 10^3/uL (0.0-0.2); BASO % 0.9 % (0.0-1.0); EOS # 0.3 10^3/uL (0.0-0.5); EOS % 3.6 % (0.0-3.0); LYMPH # 2.0 10^3/uL (1.5-5.0); LYMPH % 25.4 % (24.0-44.0); MONO # 0.9 10^3/uL (0.0-0.8); MONO % 11.1 % (2.0-8.0); NEUTROPHILS # 4.5 10^3/uL (1.5-8.5); NEUTROPHILS % 58.2 % (36.0-66.0); PLATELET COUNT, AUTOMATED 328 10^3/uL (150-450)
[2024-12-24 09:35] LABS: ALT/SGPT 19.0 U/L (7.0-40); AST/SGOT 21.0 U/L (<34); CALCIUM LEVEL 9.4 MG/DL (8.3-10.6); CARBON DIOXIDE LEVEL 27.0 MMOL/L (20-31); CHLORIDE LEVEL 107.0 MMOL/L (98-107); CHOLESTEROL LEVEL 123.0 MG/DL (<200); CHOLESTEROL RISK RATIO 5.61 (<5); CREATININE FOR GFR 1.96 MG/DL (0.70-1.30); GLOMERULAR FILTRATION RATE 34.6 (>42); LDL CHOLESTEROL 68.1 MG/DL (<100); NON-HDL-C 101.1 MG/DL; POTASSIUM SERUM 5.0 MMOL/L (3.5-5.1); SODIUM LEVEL 143.0 MMOL/L (136-145); TRIGLYCERIDES LEVEL 165.0 MG/DL (<150)
[2024-12-24 10:04] LABS: ESTIMATED AVERAGE GLUCOSE 154.0 MG/DL (60-110)
== END ==
LOC: M LAB 08:40
PROVIDERS: ATTEND Internal Medicine
DX: I10 Essential (primary) hypertension (principal); E11.9 Type 2 diabetes mellitus without complications; E78.5 Hyperlipidemia, unspecified

== ENCOUNTER → 2025-01-16 | Outpatient (CLI) | payer MEDICARE ==
[2025-01-16 14:21] LABS: VITAMIN B12 LEVEL 290.0 PG/ML (211-911)
[2025-01-16 16:46] LABS: ESTIMATED AVERAGE GLUCOSE 148.0 MG/DL (60-110)
[2025-01-18 03:16] LABS: T P ELECTROPHORESIS SO 6.8 g/dL (6.1-8.1)
== END ==
LOC: M LAB 13:02
PROVIDERS: ATTEND Psychiatry & Neurology Neurology
DX: E11.40 Type 2 diabetes mellitus with diabetic neuropathy, unspecified (principal)

== ENCOUNTER 2025-02-01 19:43 | Inpatient (IN) | payer MEDICARE ==
[~2025-02-01] VITALS: Ht 182.9 cm; Wt 109.5 kg
[2025-02-01 21:17] LABS: BASO # 0.1 10^3/uL (0.0-0.2); BASO % 1.3 % (0.0-1.0); EOS # 0.2 10^3/uL (0.0-0.5); EOS % 2.3 % (0.0-3.0); LYMPH # 1.4 10^3/uL (1.5-5.0); LYMPH % 18.0 % (24.0-44.0); MONO # 0.6 10^3/uL (0.0-0.8); MONO % 8.0 % (2.0-8.0); NEUTROPHILS # 5.5 10^3/uL (1.5-8.5); NEUTROPHILS % 69.8 % (36.0-66.0); PLATELET COUNT, AUTOMATED 322 10^3/uL (150-450)
[2025-02-01 21:27] LABS: CK-MB VALUE MASS 5.3 NG/ML (<3.6)
[2025-02-01 21:29] LABS: ALT/SGPT 22 U/L (7.0-40); AST/SGOT 21 U/L (<34); CALCIUM LEVEL 9.1 MG/DL (8.3-10.6); CARBON DIOXIDE LEVEL 25 MMOL/L (20-31); CHLORIDE LEVEL 109 MMOL/L (98-107); CPK CREATINE PHOSPHOKINASE 91 U/L (46-171); CREATININE FOR GFR 2.15 MG/DL (0.70-1.30); GLOMERULAR FILTRATION RATE 30.9 (>42); MB/CK RELATIVE INDEX 5.82 (< OR =4); POTASSIUM SERUM 5.0 MMOL/L (3.5-5.1); SODIUM LEVEL 142 MMOL/L (136-145)
[2025-02-01 22:04] LABS: OSMOLALITY SERUM 302 MOSM/KG (280-301)
[2025-02-01 22:07] LABS: ETHYL ALCOHOL (ETHANOL) 0.003 % (0.000-0.010)
[2025-02-01 22:09] LABS: SALICYLATE LEVEL < 3.0 MG/DL (<30)
[2025-02-01 22:11] LABS: VENOUS PH 7.398 UNITS (7.330-7.430)
[2025-02-01 22:12] LABS: VENOUS BASE EXCESS -0.4 (-2.0-2.0); VENOUS HCO3 24.4 MMOL/L (23.0-27.0); VENOUS O2 SATURATION 93.5 % (60.0-80.0); VENOUS PARTIAL PRESSURE CO2 40.4 mmHg (38.0-50.0); VENOUS PARTIAL PRESSURE O2 71.2 mmHg (30.0-50.0); VENOUS STANDARD HCO3 24.1 MMOL/L; VENOUS TOTAL CO2 25.6 MMOL/L (24.0-28.0)
[2025-02-02] VITALS (9 sets, daily range): BP systolic 149–172; BP diastolic 62–82; TEMP 97–98.7; O2SAT 95–98
[2025-02-02] MEDS: NS (Normal Saline) 0.9% 1,000 ML IV ONE (00:51)
[2025-02-02 03:44] LABS: KETONE, URINE AUTO RFX NEGATIVE (NEGATIVE); LEUKOCYTE ESTERASE UR AUTO RFX NEGATIVE (NEGATIVE); MUCUS, URINE RFX SMALL (NEGATIVE); NITRITE, URINE AUTO RFX NEGATIVE (NEGATIVE); RBC, URINE AUTO RFX 13 /HPF (0-3); SQUAM EPITHELIAL CELL UR AURFX 0 /HPF (0-6); WBC, URINE AUTO RFX 0 /HPF (0-3)
[2025-02-02 04:07] LABS: AMPHETAMINES LEVEL URINE NEGATIVE (NEGATIVE); BARBITURATES URINE NEGATIVE (NEGATIVE); BENZODIAZEPINES URINE NEGATIVE (NEGATIVE); CANNABINOIDS URINE NEGATIVE (NEGATIVE); COCAINE METABOLITE URINE NEGATIVE (NEGATIVE); METHADONE URINE NEGATIVE (NEGATIVE); OPIATES URINE NEGATIVE (NEGATIVE); PHENCYCLIDINE URINE NEGATIVE (NEGATIVE)
[2025-02-02] MEDS ORDERED: DEXTROSE 50% 50 ML SYRINGE IV PRN (05:00)
[2025-02-02] MEDS ORDERED: GLUCAGON INJ 1 MG VIAL SC PRN (05:00)
[2025-02-02] MEDS: NS (Normal Saline) 0.9% 1,000 ML IV SCH (05:00)
[2025-02-02] MEDS ORDERED: ACETAMINOPHEN 325 MG TAB PO PRN (05:00)
[2025-02-02] MEDS: INSULIN LISPRO (NovoLOG) PER UNIT SC SCH ×2 (07:30→20:03)
[2025-02-02] MEDS: GLUCOSE 4 GM CHEW PO PRN (07:37)
[2025-02-02] MEDS: APIXABAN 2.5 MG TAB PO SCH (08:16)
[2025-02-02] MEDS: ATORVASTATIN 20 MG TAB PO ONE (08:17)
[2025-02-02] MEDS ORDERED: CLOPIDOGREL 75 MG TAB PO SCH (09:00)
[2025-02-02 09:21] LABS: CALCIUM LEVEL 8.7 MG/DL (8.3-10.6); CARBON DIOXIDE LEVEL 25.0 MMOL/L (20-31); CHLORIDE LEVEL 106.0 MMOL/L (98-107); CREATININE FOR GFR 1.55 MG/DL (0.70-1.30); GLOMERULAR FILTRATION RATE 45.8 (>42); POTASSIUM SERUM 4.7 MMOL/L (3.5-5.1); SODIUM LEVEL 140.0 MMOL/L (136-145)
[2025-02-02] MEDS: ASPIRIN 81 MG CHEWABLE TABLET PO SCH (09:37)
[2025-02-02] MEDS: amLODIPine 10 MG TAB PO ONE (11:58)
[2025-02-02] MEDS: **hydrALAZINE HCL** 25 MG TAB PO ONE (11:58)
[2025-02-02] MEDS ORDERED: HYDR50TA46 PO (12:24)
[2025-02-02] MEDS ORDERED: ATOR40TA75 PO (12:24)
[2025-02-02] MEDS ORDERED: BASA100I SC (12:24)
[2025-02-02] MEDS ORDERED: PRAM0.252 PO (12:24)
[2025-02-02] MEDS ORDERED: COMB0.2S OU (12:24)
[2025-02-02] MEDS ORDERED: OMEG10002 PO (12:24)
[2025-02-02] MEDS ORDERED: HOME MED LIST COMPLETE! XX SCH (12:25)
[2025-02-02] MEDS: PANTOPRAZOLE 40MG TAB PO SCH (15:04)
[2025-02-02] MEDS: FAMOTIDINE 20 MG TAB PO SCH (15:04)
[2025-02-02] MEDS: METOPROLOL SUCC. 25 MG *XL* TAB PO SCH (15:04)
[2025-02-02] MEDS: OMEGA-3 1000 MG CAPSULE PO SCH (17:26)
[2025-02-02] MEDS: TERAZOSIN 1 MG CAP PO SCH (17:26)
[2025-02-02] MEDS: **hydrALAZINE HCL** 25 MG TAB PO SCH (19:54)
[2025-02-02] MEDS: BACLOFEN 10 MG TAB PO SCH (20:02)
[2025-02-02] MEDS: PRAMIPEXOLE 0.25 MG TAB PO SCH (20:03)
[2025-02-02] MEDS: LATANOPROST 0.005% OPHTH SOLN 2.5 ML OU SCH (20:03)
[2025-02-02] MEDS: ATORVASTATIN 20 MG TAB PO SCH (20:03)
[2025-02-03] VITALS (17 sets, daily range): BP systolic 174–202; BP diastolic 58–90; TEMP 98–98.7; O2SAT 95–97
[2025-02-03 04:59] LABS: MAGNESIUM LEVEL 1.8 MG/DL (1.8-2.4); PHOSPHORUS LEVEL 3.1 MG/DL (2.4-5.1)
[2025-02-03] MEDS: amLODIPine 10 MG TAB PO SCH (08:16)
[2025-02-03 08:22] LABS: CALCIUM LEVEL 8.6 MG/DL (8.3-10.6); CARBON DIOXIDE LEVEL 21.0 MMOL/L (20-31); CHLORIDE LEVEL 107.0 MMOL/L (98-107); CREATININE FOR GFR 1.3 MG/DL (0.70-1.30); GLOMERULAR FILTRATION RATE 56.6 (>42); MAGNESIUM LEVEL 1.7 MG/DL (1.8-2.4); POTASSIUM SERUM 4.6 MMOL/L (3.5-5.1); SODIUM LEVEL 139.0 MMOL/L (136-145)
[2025-02-03] MEDS: **hydrALAZINE** 50 MG TAB PO SCH (12:19)
[2025-02-03] MEDS: MAG SULF 1GM/100ML (MAG RUN) 1 GM in IV 1 EA IV SCH (16:53)
[2025-02-03] MEDS: hydrALAZINE 20 MG/ML 1 ML VIAL IV PRN (20:16)
[2025-02-04] VITALS (12 sets, daily range): BP systolic 151–216; BP diastolic 58–88; TEMP 97.8–98.7; O2SAT 92–98
[2025-02-04 05:33] LABS: CALCIUM LEVEL 9.7 MG/DL (8.3-10.6); CARBON DIOXIDE LEVEL 23.0 MMOL/L (20-31); CHLORIDE LEVEL 107.0 MMOL/L (98-107); CREATININE FOR GFR 1.34 MG/DL (0.70-1.30); GLOMERULAR FILTRATION RATE 54.6 (>42); MAGNESIUM LEVEL 1.9 MG/DL (1.8-2.4); POTASSIUM SERUM 5.1 MMOL/L (3.5-5.1); SODIUM LEVEL 142.0 MMOL/L (136-145)
[2025-02-04] MEDS: ONDANSETRON 4MG 2ML VIAL IV PRN (07:50)
[2025-02-04] MEDS: GABAPENTIN 300 MG CAP PO SCH (08:20)
[2025-02-04] MEDS: FENOFIBRATE 145 MG TABLET PO SCH (20:02)
[2025-02-05 04:00] VITALS: BP 169/69; TEMP 97.8; O2SAT 94
[2025-02-05 07:05] VITALS: BP 174/72; TEMP 98.6; O2SAT 91
[2025-02-05] MEDS: CLOPIDOGREL 75 MG TAB PO SCH (08:11)
[2025-02-05 10:38] LABS: CALCIUM LEVEL 9.0 MG/DL (8.3-10.6); CARBON DIOXIDE LEVEL 22.0 MMOL/L (20-31); CHLORIDE LEVEL 105.0 MMOL/L (98-107); CREATININE FOR GFR 1.88 MG/DL (0.70-1.30); GLOMERULAR FILTRATION RATE 36.3 (>42); MAGNESIUM LEVEL 1.8 MG/DL (1.8-2.4); POTASSIUM SERUM 4.9 MMOL/L (3.5-5.1); SODIUM LEVEL 139.0 MMOL/L (136-145)
[2025-02-05 11:36] VITALS: BP 138/65; TEMP 98.1; O2SAT 94
[2025-02-05] MEDS: NS (Normal Saline) 0.9% 1,000 ML IV SCH (13:35)
[2025-02-05 14:00] VITALS: BP 153/66; O2SAT 94
[2025-02-05 16:00] VITALS: BP 147/80; TEMP 97.1; O2SAT 95
[2025-02-05] MEDS: FENTANYL REMOVAL DOCUMENTATION MISC XX SCH (16:00)
[2025-02-05 20:00] VITALS: BP 173/74; TEMP 97.9; O2SAT 95
[2025-02-06] VITALS (8 sets, daily range): BP systolic 134–185; BP diastolic 62–79; TEMP 96.9–97.7; O2SAT 94–96
[2025-02-06 08:32] LABS: CALCIUM LEVEL 9.0 MG/DL (8.3-10.6); CARBON DIOXIDE LEVEL 23.0 MMOL/L (20-31); CHLORIDE LEVEL 108.0 MMOL/L (98-107); CREATININE FOR GFR 1.4 MG/DL (0.70-1.30); GLOMERULAR FILTRATION RATE 51.8 (>42); MAGNESIUM LEVEL 1.6 MG/DL (1.8-2.4); POTASSIUM SERUM 4.5 MMOL/L (3.5-5.1); SODIUM LEVEL 141.0 MMOL/L (136-145)
[2025-02-06] MEDS: MAG SULF 1GM/100ML (MAG RUN) 1 GM in IV 1 EA IV SCH (10:49)
[2025-02-06] MEDS ORDERED: HYDR50TA46 PO (15:09)
[2025-02-06] MEDS ORDERED: HYDR12.510 PO (15:09)
[2025-02-06] MEDS ORDERED: ELIQ2.5T PO (15:09)
[2025-02-06] MEDS ORDERED: MAGNESIUM OXIDE 400 MG TAB PO SCH (21:00)
== END 2025-02-06 17:15 | disposition home health service (06) | DRG 92 ==
LOC: M ED 19:43 → M ED INP 02-02 04:56 → M ICU 02-02 13:56
PROVIDERS: ADMIT Student in an Organized Health Care Education/Training Program; ATTEND Student in an Organized Health Care Education/Training Program
DX: R29.6 Repeated falls (principal); N17.9 Acute kidney failure, unspecified; I12.9 Hypertensive chronic kidney disease with stage 1 through stage 4 chronic kidney disease, or unspecified chronic kidney disease; E11.22 Type 2 diabetes mellitus with diabetic chronic kidney disease; R33.9 Retention of urine, unspecified; N18.9 Chronic kidney disease, unspecified; E78.5 Hyperlipidemia, unspecified; D64.9 Anemia, unspecified; H40.9 Unspecified glaucoma; R53.81 Other malaise; M19.90 Unspecified osteoarthritis, unspecified site; E11.649 Type 2 diabetes mellitus with hypoglycemia without coma; N13.9 Obstructive and reflux uropathy, unspecified; Z79.01 Long term (current) use of anticoagulants; I16.0 Hypertensive urgency; G47.33 Obstructive sleep apnea (adult) (pediatric); E11.51 Type 2 diabetes mellitus with diabetic peripheral angiopathy without gangrene; K21.9 Gastro-esophageal reflux disease without esophagitis; I25.10 Atherosclerotic heart disease of native coronary artery without angina pectoris; Z86.718 Personal history of other venous thrombosis and embolism; E83.42 Hypomagnesemia; Z98.49 Cataract extraction status, unspecified eye; Z79.899 Other long term (current) drug therapy

== ENCOUNTER → 2025-02-14 | Outpatient (CLI) | payer MEDICARE ==
[~2025-02-14] MED LIST changes: +ATOR40TA75 PO; +BASA100I SC; +COMB0.2S OU; +ELIQ2.5T PO; +HYDR12.510 PO; +HYDR50TA46 PO; +OMEG10002 PO; +PRAM0.252 PO
[2025-02-14 14:59] LABS: CALCIUM LEVEL 9.5 MG/DL (8.3-10.6); CARBON DIOXIDE LEVEL 25.0 MMOL/L (20-31); CHLORIDE LEVEL 107.0 MMOL/L (98-107); CREATININE FOR GFR 1.93 MG/DL (0.70-1.30); GLOMERULAR FILTRATION RATE 35.2 (>42); MAGNESIUM LEVEL 1.8 MG/DL (1.8-2.4); POTASSIUM SERUM 5.1 MMOL/L (3.5-5.1); SODIUM LEVEL 142.0 MMOL/L (136-145)
== END ==
LOC: M LAB 13:18
PROVIDERS: ATTEND Student in an Organized Health Care Education/Training Program
DX: N17.9 Acute kidney failure, unspecified (principal); N18.9 Chronic kidney disease, unspecified

== ENCOUNTER 2025-02-18 13:41 | Observation (INO) | payer MEDICARE ==
[~2025-02-18] VITALS: Ht 182.9 cm; Wt 108.2 kg
[2025-02-18 14:46] LABS: BASO # 0.1 10^3/uL (0.0-0.2); BASO % 0.9 % (0.0-1.0); EOS # 0.1 10^3/uL (0.0-0.5); EOS % 1.0 % (0.0-3.0); LYMPH # 1.3 10^3/uL (1.5-5.0); LYMPH % 12.5 % (24.0-44.0); MONO # 0.4 10^3/uL (0.0-0.8); MONO % 4.2 % (2.0-8.0); NEUTROPHILS # 8.3 10^3/uL (1.5-8.5); NEUTROPHILS % 80.9 % (36.0-66.0); PLATELET COUNT, AUTOMATED 420 10^3/uL (150-450)
[2025-02-18 15:21] LABS: ALT/SGPT 18.0 U/L (7.0-40); AST/SGOT 21.0 U/L (<34); CALCIUM LEVEL 9.3 MG/DL (8.3-10.6); CARBON DIOXIDE LEVEL 28.0 MMOL/L (20-31); CHLORIDE LEVEL 103.0 MMOL/L (98-107); CREATININE FOR GFR 2.32 MG/DL (0.70-1.30); GLOMERULAR FILTRATION RATE 28.2 (>42); POTASSIUM SERUM 4.8 MMOL/L (3.5-5.1); SODIUM LEVEL 140.0 MMOL/L (136-145)
[2025-02-18] MEDS ORDERED: HOME MED LIST COMPLETE! XX SCH (15:30)
[2025-02-18 16:13] LABS: KETONE, URINE AUTO RFX NEGATIVE (NEGATIVE); MUCUS, URINE RFX SMALL (NEGATIVE); NITRITE, URINE AUTO RFX NEGATIVE (NEGATIVE); RBC, URINE AUTO RFX TNTC /HPF (0-3); SQUAM EPITHELIAL CELL UR AURFX 0 /HPF (0-6); TRANSITIONAL EPITHELIAL AU RFX 2 /HPF
[2025-02-18 16:17] LABS: LEUKOCYTE ESTERASE UR AUTO RFX TRACE (NEGATIVE); WBC, URINE AUTO RFX 14 /HPF (0-3)
[2025-02-18] MEDS: NS 500 ML IV ONE (17:48)
[2025-02-18] MEDS ORDERED: GLUCAGON INJ 1 MG VIAL SC PRN (19:05)
[2025-02-18] MEDS ORDERED: DEXTROSE 50% 50 ML SYRINGE IV PRN (19:05)
[2025-02-18] MEDS ORDERED: GLUCOSE 4 GM CHEW PO PRN (19:05)
[2025-02-18] MEDS: LR 1,000 ML IV SCH (19:34)
[2025-02-18 20:22] VITALS: BP 152/72; TEMP 96.8; O2SAT 94
[2025-02-18] MEDS: INSULIN LISPRO (NovoLOG) PER UNIT SC SCH (21:00)
[2025-02-18] MEDS: BACLOFEN 10 MG TAB PO SCH (22:06)
[2025-02-18] MEDS: ATORVASTATIN 20 MG TAB PO SCH (22:07)
[2025-02-18] MEDS: GABAPENTIN 300 MG CAP PO SCH (22:07)
[2025-02-18] MEDS: CLOPIDOGREL 75 MG TAB PO SCH (22:07)
[2025-02-18] MEDS: FENOFIBRATE 145 MG TABLET PO SCH (22:12)
[2025-02-18] MEDS: **hydrALAZINE** 50 MG TAB PO SCH (22:14)
[2025-02-18] MEDS: LATANOPROST 0.005% OPHTH SOLN 2.5 ML OU SCH (22:15)
[2025-02-18] MEDS: PRAMIPEXOLE 0.25 MG TAB PO SCH (22:15)
[2025-02-18] MEDS: LanTUS (INSULIN GLARGINE INJ) 1 UNITS/0.01 ML SC SCH (22:18)
[2025-02-19 04:00] VITALS: BP 147/77; TEMP 97; O2SAT 94
[2025-02-19 06:17] LABS: PLATELET COUNT, AUTOMATED 349 10^3/uL (150-450)
[2025-02-19 06:42] LABS: CALCIUM LEVEL 9.1 MG/DL (8.3-10.6); CARBON DIOXIDE LEVEL 26.0 MMOL/L (20-31); CHLORIDE LEVEL 106.0 MMOL/L (98-107); CREATININE FOR GFR 1.71 MG/DL (0.70-1.30); GLOMERULAR FILTRATION RATE 40.7 (>42); POTASSIUM SERUM 4.3 MMOL/L (3.5-5.1); SODIUM LEVEL 141.0 MMOL/L (136-145)
[2025-02-19] MEDS: INSULIN LISPRO (NovoLOG) PER UNIT SC SCH (08:48)
[2025-02-19] MEDS: ENOXAPARIN 40 MG/0.4 ML SYRINGE (J1650 PER 10MG) SC SCH (08:48)
[2025-02-19] MEDS: PANTOPRAZOLE 40MG TAB PO SCH (08:49)
[2025-02-19] MEDS: FAMOTIDINE 20 MG TAB PO SCH (08:50)
[2025-02-19] MEDS: METOPROLOL SUCC. 25 MG *XL* TAB PO SCH (09:00)
[2025-02-19] MEDS: TERAZOSIN 1 MG CAP PO SCH (09:52)
[2025-02-19 12:00] VITALS: BP 169/66; TEMP 96.8; O2SAT 96
[2025-02-19 20:10] VITALS: BP 197/74; TEMP 97.8; O2SAT 96
[2025-02-19 22:55] VITALS: BP 190/68
[2025-02-19 23:46] VITALS: BP 184/65; TEMP 98.3; O2SAT 97
[2025-02-20] MEDS: amLODIPine 10 MG TAB PO ONE (00:24)
[2025-02-20 01:20] VITALS: BP 170/63
[2025-02-20 04:20] VITALS: BP 170/60; TEMP 98.7; O2SAT 99
[2025-02-20 06:36] LABS: PLATELET COUNT, AUTOMATED 362 10^3/uL (150-450)
[2025-02-20 07:08] LABS: CALCIUM LEVEL 9.3 MG/DL (8.3-10.6); CARBON DIOXIDE LEVEL 25.0 MMOL/L (20-31); CHLORIDE LEVEL 106.0 MMOL/L (98-107); CREATININE FOR GFR 1.7 MG/DL (0.70-1.30); GLOMERULAR FILTRATION RATE 41.0 (>42); POTASSIUM SERUM 4.7 MMOL/L (3.5-5.1); SODIUM LEVEL 141.0 MMOL/L (136-145)
[2025-02-20] MEDS: amLODIPine 10 MG TAB PO SCH (11:13)
[2025-02-20] MEDS ORDERED: BASA100I SC (13:54)
[2025-02-20] MEDS ORDERED: GABA-1490 PO (13:54)
[2025-02-20] MEDS ORDERED: CIPR250T3 PO (13:54)
[2025-02-20] MEDS ORDERED: TAMS-18 PO (13:54)
[2025-02-20 14:09] VITALS: BP 168/71
== END 2025-02-20 16:15 | disposition home or self-care (01) ==
LOC: M ED 13:41 → M ED INP 13:42 → INTOOBSV 13:42 → M MSPAV 20:20
PROVIDERS: ADMIT Student in an Organized Health Care Education/Training Program; ATTEND Student in an Organized Health Care Education/Training Program
DX: N17.9 Acute kidney failure, unspecified (principal); E86.0 Dehydration; T88.7XXA Unspecified adverse effect of drug or medicament, initial encounter; N40.0 Benign prostatic hyperplasia without lower urinary tract symptoms; N39.0 Urinary tract infection, site not specified; N18.30 Chronic kidney disease, stage 3 unspecified; R41.82 Altered mental status, unspecified; R31.9 Hematuria, unspecified; E11.649 Type 2 diabetes mellitus with hypoglycemia without coma; Z79.4 Long term (current) use of insulin; I12.9 Hypertensive chronic kidney disease with stage 1 through stage 4 chronic kidney disease, or unspecified chronic kidney disease; I25.10 Atherosclerotic heart disease of native coronary artery without angina pectoris; I73.9 Peripheral vascular disease, unspecified; Z79.01 Long term (current) use of anticoagulants; Z79.899 Other long term (current) drug therapy; Z86.718 Personal history of other venous thrombosis and embolism; G47.33 Obstructive sleep apnea (adult) (pediatric); M54.50 Low back pain, unspecified
CPT/HCPCS: 36415; 74176; 80048; 80076; 81001; 84443; 85025; 85027; 87088; 87186; 93005; 93041; 94760; 96372; 96374; 99285; G0378; J1650; J1815

== ENCOUNTER → 2025-04-15 | Outpatient (CLI) | payer MEDICARE ==
[~2025-04-15] MED LIST changes: +CIPR250T3 PO; -FISH10005 PO; +FISH1CAP38 PO; +TAMS-18 PO
[2025-04-15 13:40] LABS: BASO # 0.1 10^3/uL (0.0-0.2); BASO % 1.6 % (0.0-1.0); EOS # 0.2 10^3/uL (0.0-0.5); EOS % 2.3 % (0.0-3.0); LYMPH # 2.3 10^3/uL (1.5-5.0); LYMPH % 30.9 % (24.0-44.0); MONO # 0.8 10^3/uL (0.0-0.8); MONO % 10.1 % (2.0-8.0); NEUTROPHILS # 4.1 10^3/uL (1.5-8.5); NEUTROPHILS % 54.2 % (36.0-66.0); PLATELET COUNT, AUTOMATED 337 10^3/uL (150-450)
[2025-04-15 13:50] LABS: ESTIMATED AVERAGE GLUCOSE 151.0 MG/DL (60-110)
[2025-04-15 14:02] LABS: ALT/SGPT 21.0 U/L (7.0-40); AST/SGOT 22.0 U/L (<34); CALCIUM LEVEL 9.1 MG/DL (8.3-10.6); CARBON DIOXIDE LEVEL 26.0 MMOL/L (20-31); CHLORIDE LEVEL 112.0 MMOL/L (98-107); CHOLESTEROL LEVEL 143.0 MG/DL (<200); CHOLESTEROL RISK RATIO 5.95 (<5); CREATININE FOR GFR 1.32 MG/DL (0.70-1.30); GLOMERULAR FILTRATION RATE 55.6 (>42); LDL CHOLESTEROL 84.4 MG/DL (<100); NON-HDL-C 119.0 MG/DL; POTASSIUM SERUM 4.9 MMOL/L (3.5-5.1); SODIUM LEVEL 143.0 MMOL/L (136-145); TRIGLYCERIDES LEVEL 173.0 MG/DL (<150)
== END ==
LOC: M LAB 12:39
PROVIDERS: ATTEND Internal Medicine
DX: E78.5 Hyperlipidemia, unspecified (principal); E11.9 Type 2 diabetes mellitus without complications; I10 Essential (primary) hypertension